=== PATIENT | male | born 1940 | race Caucasian/White ===

== ENCOUNTER 2016-11-24 10:48 | Inpatient (IN) | payer BC, OTHER ==
[~2016-11-24] VITALS: Ht 172.7 cm; Wt 67.0 kg
[2016-11-24] MEDS ORDERED: SODIUM CHLORIDE 0.9% 1000ML 500 ML IV ONE (11:36)
[2016-11-24] MEDS ORDERED: PIPERACILLIN/TAZOBACTAM 4.5 GM/100ML D5W IV STA (11:36)
--- NOTE | 2016-11-24 11:45 | EMERGENCY ROOM VISIT NOTE ---
History Report prepared by Luis Enrique: Sarita Thrasher Under the Supervision of: Dr. Jose Luis Serrano M.D. First contact with patient: 11:30 Chief Complaint: SKIN PROBLEM Stated Complaint: CELLULITIS OF LEFT LEG/FOOT History of Present Illness The patient is a 76 year old male who presents to the Emergency Room with complaints of a persistent right leg cellulitis that began one week ago. He currently rates his discomfort as a 10/10 in severity. The patient's family reports that the patient has a history of Buerger's Disease. She states that the patient was a heavy smoker until two years ago, when he had a left above the knee amputation. The patient's family notes that one month ago the patient scraped his right wagner. She states that nine days ago, the patient accidentally clipped his right great toe when clipping his toenails. The patient's family states that the patient developed a cellulitis one week ago and was started on Bactrim by his PCP. She notes that the patient's infection has continued to worsen. The patient reports being on Coumadin, but states that for the past week he has been off the Coumadin due to his infection. The patient reports a history of lung cancer. Source of History: patient Onset: one week ago Position: leg (right) Symptom Intensity: 10/10 Quality: other (cellulitis) Timing: other (persistent) Review of Systems See HPI for pertinent positives & negatives. A total of 10 systems reviewed and were otherwise negative. Past Medical & Surgical Medical Problems: (1) Buerger's disease (2) Hypertension Surgical Problems: (1) History of left above knee amputation (2) Status post right knee replacement Family History Hypertension Kidney disease Kidney stones Social History Smoking Status: Former Smoker Smokeless Tobacco Use: No Alcohol Use: none Marital Status: single Housing Status: lives with significant other Occupation Status: retired Current/Historical Medications Scheduled Furosemide (Lasix), 20 MG PO DAILY Levothyroxine Sodium (Synthroid), 100 MCG PO DAILY Losartan Potassium (Cozaar), 50 MG PO DAILY Multivitamin (Multivitamin), 1 TAB PO DAILY Warfarin Sod (Jantoven), 3 MG PO DAILY Scheduled PRN Hydrocodone/Acetaminophen 10MG/325MG ([place] 10MG/325MG), 1 TAB PO Q6H PRN for Pain Temazepam (Restoril), 30 MG PO HS PRN for . Miscellaneous Medications Testosterone Enanthate (Testosterone Enanthate) Allergies Coded Allergies: Iodinated Diagnostic Agents (Unverified Allergy, Unknown, ., 11/24/16) Physical Exam Vital Signs Date Time Temp Pulse Resp B/P (MAP) Pulse Ox O2 Delivery O2 Flow Rate FiO2 11/24/16 13:03 104 18 137/70 92 Room Air 11/24/16 12:03 127 11/24/16 11:51 94 Room Air 11/24/16 11:03 36.9 119 20 118/77 99 Room Air Physical Exam GENERAL: Patient is in no acute distress. HEENT: No acute trauma, normocephalic atraumatic, mucous membranes moist, no nasal congestion, no scleral icterus. NECK: No stridor, no adenopathy, no meningismus, trachea is midline. LUNGS: Clear to auscultation bilaterally, no wheeze, no rhonchi, breath sounds equal. HEART: Tachycardic, with an irregular rhythm, no murmurs. ABDOMEN: Soft, nontender, bowel sounds positive, no hernias, no peritonitis. EXTREMITIES: Left above the knee amputation. Right lower extremity has erythema from the ankle to the proximal tib/fib. There is an abrasion to the anterior mid tib/fib. Distal foot is cool and white, there is some contusion to the great toe and second toe. NEUROLOGIC: Oriented x 3, no acute motor or sensory deficits, no focal weakness. SKIN: No jaundice, no diaphoresis. Medical Decision & Procedures ER Provider Diagnostic Interpretation: Radiology results as stated below per my review and radiologist interpretation: CHEST ONE VIEW PORTABLE CLINICAL HISTORY: history of cancer COMPARISON STUDY: No previous studies for comparison. FINDINGS: Multinodular. In the chest. Largest nodule in the right midlung is 2.9 cm. Lower right lung has a nodule measuring 1.8 cm. There is a left suprahilar nodule measuring 8 mm. There is a peripheral nodule possibly a hyperdense nodule peripheral aspect left lung base measuring 1.8 cm. IMPRESSION: Multinodular appearing chest raising the possibility of metastatic disease. Correlation with old films is recommended. The above report was generated using voice recognition software. It may contain grammatical, syntax or spelling errors. Electronically signed by: Timothy Martinez M.D. 11/24/2016 12:00 PM Dictated Date/Time: 11/24/2016 11:59 AM RIGHT LOWER EXTREMITY ARTERIAL DOPPLER ULTRASOUND CLINICAL HISTORY: Poor circulation. White foot. COMPARISON STUDY: No previous studies for comparison. TECHNIQUE: Ankle to brachial indices could not be obtained due to lower extremity wounds. Grayscale and color and duplex Doppler sonography of the arterial system of the right lower external was performed. FINDINGS: There is extensive atherosclerotic plaque throughout the right lower extremity. An elevated peak systolic velocity of 287 cm/s was noted within the right common femoral artery. The proximal right femoral artery was patent. The mid to distal right superficial femoral artery was occluded and contained thrombus/plaque. Distal to this occlusion, there is significantly dampened, monophasic flow within the right popliteal, posterior tibial and anterior tibial arteries. No flow is identified within the right dorsalis pedis or peroneal vessels. IMPRESSION: 1. 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 Partial distal reconstitution although flow distal to this occlusion is markedly dampened and monophasic. No flow within the right dorsalis pedis and peroneal arteries which suggests occlusion. Dampened, monophasic flow within the popliteal, anterior tibial and posterior tibial arteries. 2. Extensive atherosclerotic plaque within the right lower extremity. 3. Findings suggestive of a hemodynamically significant stenosis of the right common femoral artery. Electronically signed by: Rob Nix M.D. 11/24/2016 1:14 PM Dictated Date/Time: 11/24/2016 1:03 PM Laboratory Results 11/24/16 11:20 Red Blood Count 6.95, Mean Corpuscular Volume 68.8, Mean Corpuscular Hemoglobin 22.3, Mean Corpuscular Hemoglobin Concent 32.4, Mean Platelet Volume 9.3, Neutrophils (%) (Auto) 79.5, Lymphocytes (%) (Auto) 8.7, Monocytes (%) (Auto) 6.8, Eosinophils (%) (Auto) 3.2, Basophils (%) (Auto) 0.7, Neutrophils # (Auto) 18.84, Lymphocytes # (Auto) 2.06, Monocytes # (Auto) 1.60, Eosinophils # (Auto) 0.75, Basophils # (Auto) 0.17 11/24/16 11:20 Test 11/24/16 11:20 11/24/16 12:10 White Blood Count 23.68 K/uL (4.8-10.8) Red Blood Count 6.95 M/uL (4.7-6.1) Hemoglobin 15.5 g/dL (14.0-18.0) Hematocrit 47.8 % (42-52) Mean Corpuscular Volume 68.8 fL (80-100) Mean Corpuscular Hemoglobin 22.3 pg (25-34) Mean Corpuscular Hemoglobin Concent 32.4 g/dl (32-36) Platelet Count 720 K/uL (130-400) Mean Platelet Volume 9.3 fL (7.4-10.4) Neutrophils (%) (Auto) 79.5 % Lymphocytes (%) (Auto) 8.7 % Monocytes (%) (Auto) 6.8 % Eosinophils (%) (Auto) 3.2 % Basophils (%) (Auto) 0.7 % Neutrophils # (Auto) 18.84 K/uL (1.4-6.5) Lymphocytes # (Auto) 2.06 K/uL (1.2-3.4) Monocytes # (Auto) 1.60 K/uL (0.11-0.59) Eosinophils # (Auto) 0.75 K/uL (0-0.5) Basophils # (Auto) 0.17 K/uL (0-0.2) RDW Standard Deviation 47.2 fL (36.4-46.3) RDW Coefficient of Variation 19.4 % (11.5-14.5) Immature Granulocyte % (Auto) 1.1 % Immature Granulocyte # (Auto) 0.26 K/uL (0.00-0.02) Microcytosis PRESENT Echinocytes 1+ Prothrombin Time 12.2 SECONDS (9.0-12.0) Prothromb Time International Ratio 1.1 (0.9-1.1) Activated Partial Thromboplast Time 32.9 SECONDS (21.0-31.0) Partial Thromboplastin Ratio 1.3 Anion Gap 8.0 mmol/L (3-11) Est Creatinine Clear Calc Drug Dose 24.6 ml/min Estimated GFR () 28.1 Estimated GFR (Non- 24.2 BUN/Creatinine Ratio 9.8 (10-20) Calcium Level 9.5 mg/dl (8.5-10.1) Total Bilirubin 0.6 mg/dl (0.2-1) Aspartate Amino Transf (AST/SGOT) 36 U/L (15-37) Alanine Aminotransferase (ALT/SGPT) 21 U/L (12-78) Alkaline Phosphatase 95 U/L (45-117) Total Protein 7.4 gm/dl (6.4-8.2) Albumin 3.6 gm/dl (3.4-5.0) Globulin 3.8 gm/dl (2.5-4.0) Albumin/Globulin Ratio 0.9 (0.9-2) Bedside Lactic Acid Venous 2.48 mmol/L (0.90-1.70) Laboratory results reviewed by me. Patient had lab-work on 11/03/16 His white count was 16, platelet count 805, and his creatinine was 1.67 Medications Administered Medications (Trade) Dose Ordered Sig/Greg Route Start Time Stop Time Status Last Admin Dose Admin Sodium Chloride 500 ml @ 999 mls/hr Q31M ONCE IV 11/24/16 11:36 11/24/16 12:06 DC 11/24/16 12:23 999 MLS/HR Piperacillin Sod/ Tazobactam Sod (Zosyn Iv) 4.5 gm ONE STAT IV 11/24/16 11:36 11/24/16 11:41 DC 11/24/16 12:24 4.5 GM Morphine Sulfate (MoRPHine SULFATE INJ) 4 mg Q15M PRN IV 11/24/16 11:45 12/08/16 11:44 11/24/16 12:24 4 MG Sodium Chloride 1,000 ml @ 200 mls/hr Q5H STAT IV 11/24/16 12:16 11/24/16 17:15 11/24/16 13:44 200 MLS/HR Vancomycin HCl (Vancomycin 1gm/ 270ml Nss) 1 gm NOW STAT IV 11/24/16 12:32 11/24/16 12:33 DC 11/24/16 13:03 1 GM ECG Indication: other (history of an irregular heart rate) Rate (beats per minute): 107 Rhythm: sinus tachycardia Findings: PAC, no acute ischemic change, no ectopy ED Course 1132: The patient was evaluated in room C3. A complete history and physical exam was performed. 1136: Ordered Zosyn IV 4.5 gm IV, Sodium Chloride 500 ml @ 999 mls/hr IV. 1145: Ordered Morphine Sulfate 4 mg IV. 1216: Ordered Sodium Chloride 1000 ml @ 200 mls/hr IV. 1232: Ordered Vancomycin HCl 1 gm IV. 1325: I discussed the patients case with Dr. Gallegos, Vascular Surgery. He said that there is no need for immediate vascular intervention. He states that he will see the patient in consult. 1333: I reevaluated the patient and he is resting comfortably. I discussed the exam findings with the patient and his family. I discussed the treatment plan with them and they verbalized complete understanding and agreement. The patient will be evaluated for further treatment. 1341: I discussed the patients case with Janene Lee. She is going to evaluate the patient for further treatment. Medical Decision The patient is a 76 year old male who presents to the ED with complaints of cellulitis to his right leg. Differential diagnoses considered include Ischemia , cellulitis, failed outpatient treatment, gangrene, a fib or aflutter. There is a significant leukocytosis at 23,000, this is consistent with infection. Platelet count is high. No concerning anemia. Renal panel testing shows acute renal failure/dehydration. Potassium mildly elevated. No hepatitis or coagulopathy. Lactic acid level is slightly elevated consistent with sepsis and/or dehydration. Blood cultures are pending. Chest film shows evidence for metastatic lung disease, there was no pneumonia or CHF. Right leg arterial ultrasound shows significant issues with his arterial flow. Occlusions were noted in different areas. The patient received IV saline, IV morphine. He was given IV Zosyn and IV vancomycin. The patient has a right leg cellulitis and very poor arterial flow to the right leg. He is failing outpatient treatment with oral Bactrim. Reviewing his laboratory tests from a few weeks ago, his white count is higher today, his creatinine is higher today. I spoke with Dr. Gallegos of vascular surgery. I spoke with the on-call hospitalist. I did consult case management. I discussed my findings with the patient and his significant other. Admission/observation is warranted. Medication Reconcilliation Current Medication List: was personally reviewed by me Blood Pressure Screening Patient's blood pressure: Elevated blood pressure Blood pressure disposition: Elevated BP felt to be situational, Did not require urgent referral Consults Time Called: 1321 Consulting Physician: Dr. Gallegos, Vascular Surgery Returned Call: [phone] I discussed the patients case with Dr. Gallegos, Vascular Surgery. He said that there is no need for immediate vascular intervention. He states that he will see the patient in consult. Additional Consults: Time Called: 1331 Consulted Physician: Janene Lee Returned Call: [phone] Additional Comments: I discussed the patients case with Janene Lee. She is going to evaluate the patient for further treatment. Impression Primary Impression: Sepsis Additional Impressions: Cellulitis of right leg Failure of outpatient treatment Right leg ischemia Scribe Attestation The scribe's documentation has been prepared under my direction and personally reviewed by me in its entirety. I confirm that the note above accurately reflects all work, treatment, procedures, and medical decision making performed by me. Departure Information Dispostion Being Evaluated By Hospitalist Problem Qualifiers
--- NOTE | 2016-11-24 12:01 | DIAGNOSTIC IMAGING REPORT ---
CHEST ONE VIEW PORTABLE CLINICAL HISTORY: history of cancer COMPARISON STUDY: No previous studies for comparison. FINDINGS: Multinodular. In the chest. Largest nodule in the right midlung is 2.9 cm. Lower right lung has a nodule measuring 1.8 cm. There is a left suprahilar nodule measuring 8 mm. There is a peripheral nodule possibly a hyperdense nodule peripheral aspect left lung base measuring 1.8 cm. IMPRESSION: Multinodular appearing chest raising the possibility of metastatic disease. Correlation with old films is recommended. The above report was generated using voice recognition software. It may contain grammatical, syntax or spelling errors. Electronically signed by: Timothy Martinez M.D. 11/24/2016 12:00 PM Dictated Date/Time: 11/24/2016 11:59 AM
[2016-11-24 12:04] LABS: BASO % 0.7 %; BASO ABS # 0.17 K/uL (0-0.2); EOS % 3.2 %; HEMATOCRIT 47.8 % (42-52); IG% 1.1 %; LYMPH % 8.7 %; LYMPH ABS # 2.06 K/uL (1.2-3.4); MEAN CELL VOLUME 68.8 fL (80-100); MEAN CORPUSCULAR HEMOGLOBIN 22.3 pg (25-34); MEAN CORPUSCULAR HGB CONC 32.4 g/dl (32-36); MEAN PLATELET VOLUME 9.3 fL (7.4-10.4); MONO % 6.8 %; NEUT % 79.5 %; PLATELET COUNT 720 K/uL (130-400); RED BLOOD COUNT 6.95 M/uL (4.7-6.1); WHITE BLOOD COUNT 23.68 K/uL (4.8-10.8)
[2016-11-24 12:09] LABS: INR 1.1 (0.9-1.1); PARTIAL THROMBOPLASTIN RATIO 1.3; PROTHROMBIN TIME (PATIENT) 12.2 SECONDS (9.0-12.0)
[2016-11-24 12:12] LABS: BUN/CREATININE RATIO 9.8 (10-20); CALCIUM 9.5 mg/dl (8.5-10.1); CREATININE 2.5 mg/dl (0.60-1.40); POTASSIUM 5.4 mmol/L (3.5-5.1)
[2016-11-24 12:15] LABS: ALB/GLOB RATIO 0.9 (0.9-2)
[2016-11-24] MEDS ORDERED: SODIUM CHLORIDE 0.9% 1000ML 1,000 ML IV STA (12:16)
[2016-11-24] MEDS: MoRPHine SULFATE 4 MG/ML 1 ML CARP\\VIAL IV PRN ×2 (12:24→15:18)
[2016-11-24] MEDS ORDERED: VANCOMYCIN 1GM/270ML NSS IV STA (12:32)
[2016-11-24 12:40] LABS: COMPLETE YES; ECHINOCYTES 1+; MICROCYTOSIS PRESENT
[2016-11-24] MEDS ORDERED: HYDR-4079 PO (12:53)
[2016-11-24] MEDS ORDERED: WARF3TAB6 PO (12:53)
[2016-11-24] MEDS ORDERED: TEST1INJ3 (12:53)
[2016-11-24] MEDS ORDERED: LEVO100T PO (12:53)
[2016-11-24] MEDS ORDERED: TEMA30CA4 PO (12:53)
[2016-11-24] MEDS ORDERED: FURO-85 PO (12:53)
[2016-11-24] MEDS ORDERED: MULT-506 PO (12:53)
[2016-11-24] MEDS ORDERED: LOSA50TA6 PO (12:53)
--- NOTE | 2016-11-24 13:15 | DIAGNOSTIC IMAGING REPORT ---
RIGHT LOWER EXTREMITY ARTERIAL DOPPLER ULTRASOUND CLINICAL HISTORY: Poor circulation. White foot. COMPARISON STUDY: No previous studies for comparison. TECHNIQUE: Ankle to brachial indices could not be obtained due to lower extremity wounds. Grayscale and color and duplex Doppler sonography of the arterial system of the right lower external was performed. FINDINGS: There is extensive atherosclerotic plaque throughout the right lower extremity. An elevated peak systolic velocity of 287 cm/s was noted within the right common femoral artery. The proximal right femoral artery was patent. The mid to distal right superficial femoral artery was occluded and contained thrombus/plaque. Distal to this occlusion, there is significantly dampened, monophasic flow within the right popliteal, posterior tibial and anterior tibial arteries. No flow is identified within the right dorsalis pedis or peroneal vessels. IMPRESSION: 1. 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 Partial distal reconstitution although flow distal to this occlusion is markedly dampened and monophasic. No flow within the right dorsalis pedis and peroneal arteries which suggests occlusion. Dampened, monophasic flow within the popliteal, anterior tibial and posterior tibial arteries. 2. Extensive atherosclerotic plaque within the right lower extremity. 3. Findings suggestive of a hemodynamically significant stenosis of the right common femoral artery. Electronically signed by: Rob Nix M.D. 11/24/2016 1:14 PM Dictated Date/Time: 11/24/2016 1:03 PM
[2016-11-24] MEDS ORDERED: VANCOMYCIN CONSULT ACTIVE PRN (15:10)
[2016-11-24] MEDS ORDERED: PIPERACILL/TAZOBAC CONSULT ACTIVE PRN (15:11)
[2016-11-24] MEDS ORDERED: ONDANSETRON INJ 2 MG/ML 2 ML VIAL IV PRN (15:15)
[2016-11-24] MEDS: SODIUM CHLORIDE 0.9% 1000ML 1,000 ML IV SCH ×2 (15:18→23:56)
[2016-11-24] MEDS ORDERED: TEMAZEPAM 15 MG CAP PO PRN (15:30)
[2016-11-24] MEDS ORDERED: WARFARIN SOD 3 MG TAB PO SCH (16:00)
--- NOTE | 2016-11-24 16:24 | Pharmacy Progress Note ---
Pharmacy Abx Initial Consult Date of Service Nov 24, 2016. Pharmacy Dosing Scope Date of Consult: 11/23/16 Consultation requested by: Divine Narayanan / Dr. Houser Pharmacy is consulted to initiate Vancomycin/Zosyn IV dosing therapy, order appropriate labs and adjust drug dose/frequency. Subjective The patient is a 76 year old male admitted on with right leg/foot cellulitis. Objective Height (Feet): 5 Height (Inches): 8.00 Weight (Kilograms): 68.200 Vital Signs (Past 12Hrs) Vital Signs Past 12 Hours Date Time Temp Pulse Resp B/P (MAP) Pulse Ox O2 Delivery O2 Flow Rate FiO2 11/24/16 15:00 88 18 109/64 94 Room Air 11/24/16 13:03 104 18 137/70 92 Room Air 11/24/16 12:03 127 11/24/16 11:51 94 Room Air 11/24/16 11:03 36.9 119 20 118/77 99 Room Air Lab Results (24Hrs) Laboratory Tests (24 Hours) Test 11/24/16 11:20 11/24/16 14:50 White Blood Count 23.68 K/uL (4.8-10.8) H Red Blood Count 6.95 M/uL (4.7-6.1) H Hemoglobin 15.5 g/dL (14.0-18.0) Hematocrit 47.8 % (42-52) Mean Corpuscular Volume 68.8 fL (80-100) L Mean Corpuscular Hemoglobin 22.3 pg (25-34) L Mean Corpuscular Hemoglobin Concent 32.4 g/dl (32-36) Platelet Count 720 K/uL (130-400) H Mean Platelet Volume 9.3 fL (7.4-10.4) Neutrophils (%) (Auto) 79.5 % Lymphocytes (%) (Auto) 8.7 % Monocytes (%) (Auto) 6.8 % Eosinophils (%) (Auto) 3.2 % Basophils (%) (Auto) 0.7 % Neutrophils # (Auto) 18.84 K/uL (1.4-6.5) H Lymphocytes # (Auto) 2.06 K/uL (1.2-3.4) Monocytes # (Auto) 1.60 K/uL (0.11-0.59) H Eosinophils # (Auto) 0.75 K/uL (0-0.5) H Basophils # (Auto) 0.17 K/uL (0-0.2) Lactic Acid Level 1.0 mmol/L (0.4-2.0) Micro Results Date/Time Source Procedure Growth Status 11/24/16 12:00 Blood Blood Culture Pending Received 11/24/16 11:20 Blood Blood Culture Pending Received Assessment & Plan Assessment 76 year old male being admitted with right leg/foot cellulitis that started one week SYSTEM ADMIN. Patient with elevated serum creatinine at 2.5 mg/dl upon admission (reported as 1.67 mg/dl on 11/03/16) thus will proceed cautiously. Will initiate Vancomycin starting with a widened dosing interval. Will initiate the first dose approximately 8 hours after the Emergency Dept dose since the patient did not receive and adequate loading dose. If renal function improves, will shorten the dosing interval appropriately. Plan IV Vancomycin and IV Zosyn for treatment of cellulitis (skin and soft tissue infection) Vancomycin IV * Loading dose: 1000 mg (14.7 mg/kg) * Maintenance dose: 1000 mg IV (14.7 mg/kg) every 36 hours * Goal trough level for cellulitis: 13 to 17 mcg/mL * Random level ordered for 11/27/16 prior to the 2200 hours dose * A less than traditional dose and/or extended dosing interval has/have been selected due to likelihood of drug accumulation in patient with h/o CKD. Piperacillin/tazobactam * 4.5 g bolus administered over 30 minutes, then 3.375 g IV extended infusion every 8 hours for CrCl greater than 20 mL/min Pharmacy will continue to follow and will adjust dose/frequency as necessary. Thank you.
[2016-11-24 17:11] VITALS: BP 115/71; PULSE 108; TEMP 37.1; O2SAT 94; Ht 172.7 cm; Wt 67.0 kg
[2016-11-24] MEDS: PIPERACILL/TAZOBAC IV 3.375 GM in DEXTROSE 5% 100ML 100 ML IV SCH (18:05)
[2016-11-24 19:20] VITALS: BP 119/74; PULSE 96; TEMP 37.2; O2SAT 96
--- NOTE | 2016-11-24 20:41 | History and Physical ---
History & Physical Date & Time of Service: Nov 24, 2016 at 15:19 Chief Complaint: Cellulitis Of Left Leg/Foot Primary Care Physician: Adams Amezcua M.D. History of Present Illness Source: patient, spouse, other (outpatient labs on paper chart) This is a 76 year old male with PMH of peripheral vascular disease s/p LLE vascular procedures and left AKA, lung cancer s/p radiation in 2013, HTN, paroxysmal atrial fibrillation, myelodysplastic disease, thrombophilia, hypothyroidism, chronic pain syndrome, and other problems listed below who presents to the ED for RLE redness. Pt follows with Dr. Adams Amezcua for primary care. Patient reports 1 month ago he scraped his right anterior wagner on a restroom stall while using his scooter. There was initially pain and erythema at the site which improved. Then 1 week ago patient cut his skin while clipping his right great toenail and subsequently developed erythema on the right lower leg. Patient was started on Bactrim 3 days ago by his PCP without improvement. Pt denies purulent drainage but states the toe was bleeding profusely when he clipped it. He therefore stopped his Coumadin 1 week ago and the bleeding subsided. Pt was taking his PRN for past few days due to RLE swelling. Pt denies fever, chills, night sweats, weight loss, chest pain, SOB, cough, abdominal pain, N/V/D, dysuria, frequency, stroke like symptoms. His notes his WBC and platelets were elevated in October 2016. Pt is scheduled for a chest CT tomorrow 11/25/16 to follow up his lung cancer. No recent oncology follow up. Last CT chest was in 2014. Past Medical/Surgical History Medical Problems: (1) Chronic anticoagulation Status: Chronic (2) Chronic pain syndrome Status: Chronic (3) History of valley fever Status: Chronic (4) Hypertension Status: Chronic (5) Hypothyroidism Status: Chronic (6) Lung cancer Permanent Comment: s/p radiation July 2013 in [place] Status: Chronic (7) Myelodysplastic disease Status: Chronic (8) Paroxysmal atrial fibrillation Status: Chronic (9) Peripheral vascular disease Status: Chronic (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 Status: Chronic (11) Thrombophilia Status: Chronic Surgical Problems: (1) History of left above knee amputation Status: Resolved (2) History of procedure for peripheral vascular disease Permanent Comment: LLE Status: Chronic (3) History of total right knee replacement Status: Chronic (4) Status post above knee amputation of left lower extremity Status: Chronic (5) Status post right knee replacement Status: Resolved Family History Buerger's disease FATHER Hypertension Kidney disease SISTER Kidney stones Social History Smoking Status: Former Smoker (quit 2013, prior 2-3 ppd x 50 years) Smokeless Tobacco Use: No Alcohol Use: none recently, prior heavy alcohol use before 2013 Drug Use: none Marital Status: Housing status: lives with significant other 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 Miscellaneous Medications Testosterone Enanthate (Testosterone Enanthate) Review of Systems Ten systems reviewed and negative except as noted in HPI. Physical Exam Vital Signs Date Time Temp Pulse Resp B/P (MAP) Pulse Ox O2 Delivery O2 Flow Rate FiO2 11/24/16 15:00 88 18 109/64 94 Room Air 11/24/16 13:03 104 18 137/70 92 Room Air 11/24/16 12:03 127 11/24/16 11:51 94 Room Air 11/24/16 11:03 36.9 119 20 118/77 99 Room Air General Appearance: WD/WN, no apparent distress Head: normocephalic, atraumatic Eyes: normal inspection, PERRL, EOMI, sclerae normal ENT: hearing grossly normal, pharynx normal Neck: supple, trachea midline Respiratory/Chest: lungs clear, normal breath sounds, no respiratory distress, no accessory muscle use Cardiovascular: no murmur, + tachycardia (90's, regular) Abdomen/GI: normal bowel sounds, non tender, soft Extremities/Musculoskelatal: no calf tenderness, no pedal edema, + pertinent finding (s/p LLE AKA. unable to palpate RLE DP pulse. hair loss of right toes. ) Neurologic/Psych: alert, normal mood/affect, oriented x 3, + pertinent finding (sensation to light touch intact distal RLE) Skin: warm/dry, + pertinent finding (right wagner with multiple superficial abrasions with scabbing. no active drainage. erythema right anterior, medial, and posterior calf. right great toe with healing abrasion. no active bleeding or drainage. ecchymosis of right great toe and right 2nd toe. pale distal RLE.) Diagnostics Laboratory Results Results Past 24 Hours Test 11/24/16 11:20 11/24/16 12:10 11/24/16 14:50 Range/Units White Blood Count 23.68 4.8-10.8 K/uL Red Blood Count 6.95 4.7-6.1 M/uL Hemoglobin 15.5 14.0-18.0 g/dL Hematocrit 47.8 42-52 % Mean Corpuscular Volume 68.8 80-100 fL Mean Corpuscular Hemoglobin 22.3 25-34 pg Mean Corpuscular Hemoglobin Concent 32.4 32-36 g/dl Platelet Count 720 130-400 K/uL Mean Platelet Volume 9.3 7.4-10.4 fL Neutrophils (%) (Auto) 79.5 % Lymphocytes (%) (Auto) 8.7 % Monocytes (%) (Auto) 6.8 % Eosinophils (%) (Auto) 3.2 % Basophils (%) (Auto) 0.7 % Neutrophils # (Auto) 18.84 1.4-6.5 K/uL Lymphocytes # (Auto) 2.06 1.2-3.4 K/uL Monocytes # (Auto) 1.60 0.11-0.59 K/uL Eosinophils # (Auto) 0.75 0-0.5 K/uL Basophils # (Auto) 0.17 0-0.2 K/uL RDW Standard Deviation 47.2 36.4-46.3 fL RDW Coefficient of Variation 19.4 11.5-14.5 % Immature Granulocyte % (Auto) 1.1 % Immature Granulocyte # (Auto) 0.26 0.00-0.02 K/uL Microcytosis PRESENT Echinocytes 1+ Prothrombin Time 12.2 9.0-12.0 SECONDS Prothromb Time International Ratio 1.1 0.9-1.1 Activated Partial Thromboplast Time 32.9 21.0-31.0 SECONDS Partial Thromboplastin Ratio 1.3 Sodium Level 134 136-145 mmol/L Potassium Level 5.4 3.5-5.1 mmol/L Chloride Level 99 98-107 mmol/L Carbon Dioxide Level 27 21-32 mmol/L Anion Gap 8.0 3-11 mmol/L Blood Urea Nitrogen 24 7-18 mg/dl Creatinine 2.50 0.60-1.40 mg/dl Est Creatinine Clear Calc Drug Dose 24.6 ml/min Estimated GFR () 28.1 Estimated GFR (Non- 24.2 BUN/Creatinine Ratio 9.8 10-20 Random Glucose 89 70-99 mg/dl Calcium Level 9.5 8.5-10.1 mg/dl Total Bilirubin 0.6 0.2-1 mg/dl Aspartate Amino Transf (AST/SGOT) 36 15-37 U/L Alanine Aminotransferase (ALT/SGPT) 21 12-78 U/L Alkaline Phosphatase 95 45-117 U/L Total Protein 7.4 6.4-8.2 gm/dl Albumin 3.6 3.4-5.0 gm/dl Globulin 3.8 2.5-4.0 gm/dl Albumin/Globulin Ratio 0.9 0.9-2 Bedside Lactic Acid Venous 2.48 0.90-1.70 mmol/L Microbiology Results 11/24/16 Blood Culture, Received Pending 11/24/16 Blood Culture, Received Pending Diagnostic Radiology RIGHT LOWER EXTREMITY ARTERIAL DOPPLER ULTRASOUND CLINICAL HISTORY: Poor circulation. White foot. COMPARISON STUDY: No previous studies for comparison. TECHNIQUE: Ankle to brachial indices could not be obtained due to lower extremity wounds. Grayscale and color and duplex Doppler sonography of the arterial system of the right lower external was performed. FINDINGS: There is extensive atherosclerotic plaque throughout the right lower extremity. An elevated peak systolic velocity of 287 cm/s was noted within the right common femoral artery. The proximal right femoral artery was patent. The mid to distal right superficial femoral artery was occluded and contained thrombus/plaque. Distal to this occlusion, there is significantly dampened, monophasic flow within the right popliteal, posterior tibial and anterior tibial arteries. No flow is identified within the right dorsalis pedis or peroneal vessels. IMPRESSION: 1. 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 Partial distal reconstitution although flow distal to this occlusion is markedly dampened and monophasic. No flow within the right dorsalis pedis and peroneal arteries which suggests occlusion. Dampened, monophasic flow within the popliteal, anterior tibial and posterior tibial arteries. 2. Extensive atherosclerotic plaque within the right lower extremity. 3. Findings suggestive of a hemodynamically significant stenosis of the right common femoral artery. CHEST ONE VIEW PORTABLE CLINICAL HISTORY: history of cancer COMPARISON STUDY: No previous studies for comparison. FINDINGS: Multinodular. In the chest. Largest nodule in the right midlung is 2.9 cm. Lower right lung has a nodule measuring 1.8 cm. There is a left suprahilar nodule measuring 8 mm. There is a peripheral nodule possibly a hyperdense nodule peripheral aspect left lung base measuring 1.8 cm. IMPRESSION: Multinodular appearing chest raising the possibility of metastatic disease. Correlation with old films is recommended. EKG sinus tachycardia with PAC's, 107 bpm, no peaked T waves Impression Assessment and Plan SEPSIS Due to RLE cellulitis, failed outpatient treatment with 3 days of Bactrim Meets SIRS criteria with leukocytosis (WBC 23K, was 16.9 on 11/03/16), + tachycardia, afebrile, no hypotension, POC lactate 2.44 -> repeat 1.0 Treated with IVF's, vancomycin and Zosyn in ER Blood cultures pending Continue empiric broad spectrum antibiotics Consult wound care nurse KARINA Creatinine is 2.5 (was 1.67 on 11/03/16) Hold Losartan and Lasix Continue IVF's Monitor renal function HYPERKALEMIA K is 5.4 No concerning EKG changes Monitor in telemetry Diuretics held Recheck PRP in AM PERIPHERAL VASCULAR DISEASE RLE doppler showed age indeterminate occlusion of superficial femoral artery, extensive atherosclerotic plaque within RLE, hemodynamically significant stenosis of the right common femoral artery Consult vascular surgery- Dr. Gallegos contacted by ER, no plan for urgent procedure, will see patient in consult HISTORY OF LUNG CANCER S/p radiation July 2013 CXR shows multiple lung nodules, ?metastatic Consult pulmonology PAROXYSMAL ATRIAL FIBRILLATION Currently in sinus tachycardia Has been off Coumadin x 1 week for toe bleeding- resolved Continue to hold Coumadin in case vascular procedure is needed during hospitalization ELEVATED PLATELETS Likely due to acute illness Elevated to 805 in October -> 720 today Monitor HYPOTHYROIDISM Continue levothyroxine CHRONIC PAIN SYNDROME Continue home Ellamore DVT PROPHYLAXIS Coumadin is on hold Heparin SQ CODE STATUS DNR per my discussion with the patient DISPOSITION Admit to telemetry Follows with Dr. Adams Amezcua for primary care Patient seen in collaboration with Dr. Houser. Please see her addendum. ADDENDUM: I have seen and examined the patient and agree with the assessment and plan as stated above. No records available for review. Requested records from typical PCP in [place]. Uncertain plan for the lung cancer at this point. Pt states that the last time he has seen someone about this was two years ago. Agree with pulm consult to assist while awaiting records. Pt is already improved clinically from a sepsis standpoint. States that leg was injured in a bathroom stall 3 weeks ago while in [facility]-large wound on anterior wagner present. Pulse is faint but palpable on exam. Holding coumadin until Dr. Gallegos plan. Mik, DO Level of Care Telemetry Resuscitation Status DO NOT RESUSCITATE VTE Prophylaxis VTE Risk Assessment Done? Y/N: Yes Risk Level: Moderate
[2016-11-24] MEDS: HYDROCODONE/ACETAMI 10/325 TAB PO PRN (21:40)
[2016-11-24] MEDS: HEPARIN SOD 5000 UNIT/0.5 ML CARP SQ SCH (21:44)
[2016-11-24] MEDS ORDERED: VANCOMYCIN INJ 1,000 MG in SODIUM CHLORIDE 0.9% 250ML 250 ML IV SCH (22:00)
[2016-11-24 23:10] VITALS: BP 131/61; PULSE 94; TEMP 37.2; O2SAT 94
[2016-11-25] MEDS: ACETAMINOPHEN 325 MG TAB PO PRN ×2 (01:32→14:39)
[2016-11-25] MEDS: PIPERACILL/TAZOBAC IV 3.375 GM in DEXTROSE 5% 100ML 100 ML IV SCH ×3 (02:30→17:47)
[2016-11-25 02:55] VITALS: BP 118/75; PULSE 116; TEMP 37.1; O2SAT 94
[2016-11-25] MEDS: LEVOTHYROXINE 100 MCG TAB PO SCH (05:54)
[2016-11-25] MEDS: HEPARIN SOD 5000 UNIT/0.5 ML CARP SQ SCH ×3 (05:56→22:00)
[2016-11-25 07:38] LABS: BASO % 0.8 %; BASO ABS # 0.16 K/uL (0-0.2); EOS % 1.7 %; HEMATOCRIT 47.4 % (42-52); IG% 0.8 %; LYMPH % 4.9 %; LYMPH ABS # 1.04 K/uL (1.2-3.4); MEAN CELL VOLUME 68.6 fL (80-100); MEAN CORPUSCULAR HEMOGLOBIN 21.7 pg (25-34); MEAN CORPUSCULAR HGB CONC 31.6 g/dl (32-36); MONO % 6.4 %; NEUT % 85.4 %; PLATELET COUNT 686 K/uL (130-400); RED BLOOD COUNT 6.91 M/uL (4.7-6.1); WHITE BLOOD COUNT 21.18 K/uL (4.8-10.8)
[2016-11-25 07:41] VITALS: BP 128/81; PULSE 133; TEMP 37.1; O2SAT 97
[2016-11-25 07:51] LABS: INR 1.1 (0.9-1.1); PROTHROMBIN TIME (PATIENT) 12.2 SECONDS (9.0-12.0)
[2016-11-25] MEDS: MULTIVITAMIN TAB PO SCH (08:03)
[2016-11-25 08:13] LABS: BUN/CREATININE RATIO 9.7 (10-20); CALCIUM 8.7 mg/dl (8.5-10.1); CREATININE 1.9 mg/dl (0.60-1.40); MAGNESIUM 1.9 mg/dl (1.8-2.4); POTASSIUM 4.5 mmol/L (3.5-5.1)
--- NOTE | 2016-11-25 09:00 | Surgery Consultation ---
Consultation Date of Service Nov 25, 2016. (Apoorva Henriquez, OLGA) Chief Complaint RLE cellulitis/pain (Apoorva Henriquez, OLGA) History of Present Illness The patient is a 76 year old male with hx of HTN, hypothyroidism, PAD, a fib, thrombophilia, myelodysplastic disorder, and LLE AKA, admitted with RLE open wounds and cellulitis, seen in consultation today d/t R SFA occlusion noted on US. Pt states he must have struck his R wagner on something about 3 wks ago and wounds have not been healing. Also states he cut his own toenails and accidentally clipped the tip of his toe around that time as well. States has had discoloration of toes since that time, which have also not been healing. Has not sought medical attention prior to this. Has had significant discomfort in R foot, but states sometimes was improved with elevation, sometimes improved with putting his leg down. Uses RLE for transfers, does not ambulate distances. States his LLE AKA was performed d/t inability to revascularize his LLE at the time. Denies LARSEN, fever, chills, chest pain, SOB, abd pain, N/V, other complaints. Denies any prior knowledge of kidney function problems or having seen a ship mate in past. Ultrasound demonstrates R SFA severe stenosis vs occlusion. (Apoorva Henriquez, OLGA) Vitals Vital Signs Past 12 Hours Date Time Temp Pulse Resp B/P (MAP) Pulse Ox O2 Delivery O2 Flow Rate FiO2 11/25/16 07:41 37.1 133 16 128/81 (97) 97 Room Air 11/25/16 04:00 Room Air 11/25/16 02:55 37.1 116 16 118/75 (89) 94 Room Air 11/25/16 00:00 Room Air 11/24/16 23:10 37.2 94 18 131/61 (84) 94 Room Air (Apoorva Henriquez, OLGA) Allergies Coded Allergies: Iodinated Diagnostic Agents (Unverified Allergy, Unknown, ., 11/24/16) Home Medications Scheduled Levothyroxine Sodium (Synthroid), 100 MCG PO DAILY Losartan Potassium (Cozaar), 50 MG PO DAILY Multivitamin (Multivitamin), 1 TAB PO DAILY Warfarin Sod (Jantoven), 3 MG PO DAILY Scheduled PRN Furosemide (Lasix), 20 MG PO DAILY PRN for swelling Hydrocodone/Acetaminophen 10MG/325MG ([place]'Brien 10MG/325MG), 1 TAB PO Q6H PRN for Pain Temazepam (Restoril), 30 MG PO HS PRN for . Miscellaneous Medications Testosterone Enanthate (Testosterone Enanthate) Problem List Medical Problems: (1) Chronic anticoagulation (2) Chronic pain syndrome (3) History of valley fever (4) Hypertension (5) Hypothyroidism (6) Lung cancer (7) Myelodysplastic disease (8) Paroxysmal atrial fibrillation (9) Peripheral vascular disease (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 (11) Thrombophilia Surgical Problems: (1) History of left above knee amputation (2) History of procedure for peripheral vascular disease (3) History of total right knee replacement (4) Status post above knee amputation of left lower extremity (5) Status post right knee replacement (Apoorva Henriquez PA-C) Surgical / Medical History Hx Cardiac Surgery: No Hx Abdominal Surgery: No Hx Cancer Surgery: No Hx Thoracic Surgery: No Hx Orthopedic: Yes (Lt AKA, Rt total Knee) Hx Urinary Tract Surgery: No HX Other Surgery: No Past Medical/Surgical History: Blood Dyscrasias, Hypertension, Thyroid Disease (Apoorva Henriquez, MUNDOC) Family History Buerger's disease FATHER Hypertension Kidney disease SISTER Kidney stones (Apoorva Henriquez, MUNDOC) Buerger's disease FATHER Hypertension Kidney disease SISTER Kidney stones (Jacobo Gallegos M.D.) Social History Smoking Status: Former Smoker (quit 2013, prior 2-3 ppd x 50 years) Hx Tobacco Use In Past Year?: No Hx Alcohol Use - Type & Amnt: No Hx Substance Use -Type & Amnt: No (Apoorva Henriquez, MUNDOC) Review of Systems Constitutional: No chills, No fever, No malaise Skin: + change in color Eyes: No visual changes ENMT: No sore throat Respiratory: No cough, No PRADO, No short of breath Cardiovascular: No chest pain, No palpitations, No syncope, No edema, No intermittent claudication Gastrointestinal: No abdominal pain, No nausea, No vomiting Neurologic: + numbness, No dizziness, No lethargy, No tingling (Apoorva Henriquez, PARamonC) Physical Exam Constitutional: General Apperance: well-nourished, well-developed Level of Distress: NAD, chronically ill Psychiatric: Mental Status: active & alert, normal mood, normal affect Orientation: oriented except where noted, to time, to place, to person Memory: recent memory normal, remote memory normal Head: normocephalic, atraumatic Eyes: EOM: EOMI ENMT: normal ENT inspection, hearing grossly normal Neck: supple, trachea midline Lungs: Respiratory effort: no dyspnea Auscultation: no wheezing, no rales/crackles Cardiovascular: Apical Impulse: not displaced Heart Auscultation: no rubs, no gallops, pertinent finding (irregular) Peripheral Pulses: Pulses: full and equal, in all extremities except if noted Bruits: none appreciated Carotid Pulse: normal on the left, normal on the right Brachial Pulses: normal on the left, normal on the right Radial Pulse: normal on the left, normal on the right Femoral Pulse: normal on the right, absent on the left Popliteal Pulse: doppler (RLE) Posterior Tibialis Pulse: absent on the right Dorsalis Pedis Pulse: absent on the right, pertinent finding (RLE absent with doppler) Abdomen: Bowel Sounds: normal Inspection & Palpation: soft, non-distended, no tenderness, guarding & rebound Musculoskeletal: normal tone Extremities: Upper Right: no cyanosis, no edema, no varicosities Upper Left: no cyanosis, no edema, no varicosities Lower Right: ulcers, mottling, gangrene, pertinent finding (R great toe tip with dry gangrene noted, all toes with pallor, cold, waxy in appearance, with 2- 3 areas of purple ischemia. Also with shallow dry ulcerations to wagner with black eschars. Warm erythema noted from foot to just prox wagner area. ) Lower Left: pertinent finding (LLE AKA) Neurologic: Cranial Nerves: grossly intact (Apoorva Henriquez, PARamonC) Assessment and Plan ASSESSMENT and PLAN: RLE Severe PAD with rest pain and ischemia Cellulitis RLE wounds Pt noted to have severe renal disease as well, which may preclude use of contrast dye. Pt states has done fine in past having contrast as long as he is pretreated for his allergy with steroids and benadryl. Pt's RLE noted to have severe ischemia and may require surgical intervention for limb salvage. To determine what surgical options are available for pt, will need at least diagnostic angio using minimal amt of contrast dye. Will discuss further with Dr Gallegos, who is currently in OR. (Apoorva Henriquez, PA-C) Patient was seen, examined, and chart reviewed. Agree with exam and treatment plan of the Vascular PA. Patient with an infected left upper arm fistula. There is a stent present in the distal portion of the fistula. Would continue antibiotics at present and place a temporary femoral catheter for dialysis. If the arm improves and cult neg will place permcath on Thursday. If the arm does not improve then will explore the fistula and remove the infected portion. I have discussed the risks options and benefits of the procedure with the patient. The patient understands the risks options and benefits and agrees to the procedure. (Jacobo Gallegos M.D.)
[2016-11-25 09:08] LABS: COMPLETE YES; ECHINOCYTES 1+; MICROCYTOSIS PRESENT
[2016-11-25] MEDS: HYDROCODONE/ACETAMI 10/325 TAB PO PRN ×2 (09:55→20:16)
[2016-11-25] MEDS: LORAZEPAM 0.5 MG TAB PO PRN ×2 (10:47→16:02)
[2016-11-25 11:14] VITALS: BP 157/92; PULSE 122; TEMP 37.1; O2SAT 99
--- NOTE | 2016-11-25 11:17 | Pulmonary Consultation ---
History General Date of Service: Nov 25, 2016. 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 The patient states that he has not had any repeat CT scans since his treatment/ therapy. He does also have history of PAD, L AKA, paroxysmal Afib, hypothyroidism, thrombophilia, and myelodysplastic disease. The patient states that he lived in [place] for approximately 18 years, and his lung CA was diagnosed and treated in [place]. He cannot remember the medical facility or doctor at the current time, but his PCP in [place] was Dr. Evens Cesar, and his currently PCP is Dr. Adams Amezcua at [facility]. I did speak with Dr. Amezcua's office and am obtaining records on this patient. The patient was admitted to [facility] with concerns for right lower extremity cellulitis. He also has some mild open wounds or the area as well with some bloody drainage. He is having some edema of the area as well. He denies sweats, chills, or fevers. He is not experiencing any SOB, cough, or wheezing. Upon admission, the patient's WBC count was elevated to 23.68 with neutrophil predominance. POC Lactic acid was elevated to 2.48. Creatinine also elevated at 2.50 upon presentation, already down to 1.90 today. Potassium was elevated at 5.4, but is also down today to 4.5. Patient was placed empirically on IV Vancomycin and Zosyn. Blood cultures are pending. RLE Arterial Doppler showed occlusion of the mid to distal right superficial femoral artery which contains thrombus/plaque of unknown age, partial reconstitution of flow, no flow within the right dorsalis pedis and peroneal arteries suggesting occlusion, extensive atherosclerotic plaques, and stenosis of the right common femoral as well. CXR 11/24: Multinodular appearing chest raising possibility of metastatic disease. Image viewed. Noted that vascular surgery was also consulted- recommending diagnostic angio of the RLE with minimal dye and pretreatment for allergy. Patient has been afebrile since admission. He has however been tachycardic. SaO2 has been between 92-99 % on room air. Patient seems slightly confused today. He is convinced that he is leaving the hospital this afternoon. He is unsure of which hospital he is in. He states that it is Thursday, and that he and his have been traveling around a lot and need to get back on the road. The patient's chart also mentions history of Valley Fever, but it is uncertain when this patient had Valley Fever or how he was treated at the time. Historian: patient Review of Systems Constitutional: denies: chills, fever Eyes: denies: redness, visual changes ENT: denies: sore throat Cardiovascular: denies: chest pain, chest tightness Respiratory: denies: cough, shortness of breath, wheezing Gastrointestinal: denies: abdominal pain, vomiting Musculoskeletal: reports: other (L AKA, right leg with edema and erythema/ wounds) Integumentary: reports: redness (right lower extremity) Neurologic: reports: other (slight confusion, but alert, cooperative, and oriented to person) All Other Symptoms All Other Systems: Reviewed and Negative Past Medical History Past Medical History: Medical Problems: (1) Chronic anticoagulation (2) Chronic pain syndrome (3) History of valley fever (4) Hypertension (5) Hypothyroidism (6) Lung cancer (7) Myelodysplastic disease (8) Paroxysmal atrial fibrillation (9) Peripheral vascular disease (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 (11) Thrombophilia Surgical Problems: (1) History of left above knee amputation (2) History of procedure for peripheral vascular disease (3) History of total right knee replacement (4) Status post above knee amputation of left lower extremity (5) Status post right knee replacement Family History Buerger's disease FATHER Hypertension Kidney disease SISTER Kidney stones Social History Hx Tobacco Use In Past Year?: No Smoking Status: Former Smoker (quit 2013, prior 2-3 ppd x 50 years) Marital status: Housing status: lives with significant other 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) Allergies Coded Allergies: Iodinated Diagnostic Agents (Unverified Allergy, Unknown, ., 11/24/16) Current Medications Reported Home Medications Medications Dose Route/Sig Max Daily Dose Days Date Category Dose Instructions Multivitamin (Multivitamins) Tab 1 Tab PO DAILY 11/24/16 Reported Cozaar (Losartan Potassium) 50 Mg Tab 50 Mg PO DAILY 11/24/16 Reported Jantoven (Warfarin Sodium) 3 Mg Tab 3 Mg PO DAILY 11/24/16 Reported Restoril (Temazepam) 30 Mg Cap 30 Mg PO HS PRN 11/24/16 Reported Lasix (Furosemide) 20 Mg Tab 20 Mg PO DAILY PRN 11/24/16 Reported [place]on 10MG/325MG (Acetaminophen/Hydrocodone Bitart) Tab 1 Tab PO Q6H PRN 11/24/16 Reported PRN PAIN Testosterone Enanthate 200 Mg/Ml Inj 11/24/16 Reported 1/2 CC every 2 weeks Synthroid (Levothyroxine Sodium) 100 Mcg Tab 100 Mcg PO DAILY 11/24/16 Reported Physical Physical Exam Vital Signs: Date Time Temp Pulse Resp B/P (MAP) Pulse Ox O2 Delivery O2 Flow Rate FiO2 11/25/16 09:33 Room Air 11/25/16 08:00 Room Air 11/25/16 07:41 37.1 133 16 128/81 (97) 97 Room Air 11/25/16 04:00 Room Air 11/25/16 02:55 37.1 116 16 118/75 (89) 94 Room Air 11/25/16 00:00 Room Air 11/24/16 23:10 37.2 94 18 131/61 (84) 94 Room Air 11/24/16 20:00 Room Air 11/24/16 19:20 37.2 96 20 119/74 (89) 96 Room Air 11/24/16 17:47 Room Air 11/24/16 17:11 37.1 108 20 115/71 94 Room Air 11/24/16 16:16 106 11/24/16 16:00 104 16 124/74 92 Room Air 11/24/16 15:00 88 18 109/64 94 Room Air 11/24/16 13:03 104 18 137/70 92 Room Air 11/24/16 12:03 127 11/24/16 11:51 94 Room Air 11/24/16 11:03 36.9 119 20 118/77 99 Room Air General Appearance: WD/WN, NO APPARENT DISTRESS Head: NORMOCEPHALIC, ATRAUMATIC Eyes: PERRLA, NO DISCHARGE, EOMI ENT: other (hearing intact) Neck: NORMAL RANGE OF MOTION, TRACHEA MIDLINE Respiratory: BREATH SOUNDS NORMAL, CLEAR TO AUSCULTATION, NO RESPIRATORY DISTRESS, NO TENDERNESS Cardiovasular: NO MURMUR, other (tachycardia) Abdomen: NON TENDER, NORMAL BOWEL SOUNDS Back: NORMAL INSPECTION Lower Extremities: other (left AKA, RLE with erythema, open wound with dried blood, and edema) Neuro: ALERT, disoriented (slightly- does not know where he is or day or week) Psychiatric: NORMAL AFFECT Diagnostics Labs Results Past 24 Hours Test 11/24/16 11:20 11/24/16 12:10 11/24/16 14:50 11/25/16 07:16 Range/Units White Blood Count 23.68 21.18 4.8-10.8 K/uL Red Blood Count 6.95 6.91 4.7-6.1 M/uL Hemoglobin 15.5 15.0 14.0-18.0 g/dL Hematocrit 47.8 47.4 42-52 % Mean Corpuscular Volume 68.8 68.6 80-100 fL Mean Corpuscular Hemoglobin 22.3 21.7 25-34 pg Mean Corpuscular Hemoglobin Concent 32.4 31.6 32-36 g/dl Platelet Count 720 686 130-400 K/uL Mean Platelet Volume 9.3 9.0 7.4-10.4 fL Neutrophils (%) (Auto) 79.5 85.4 % Lymphocytes (%) (Auto) 8.7 4.9 % Monocytes (%) (Auto) 6.8 6.4 % Eosinophils (%) (Auto) 3.2 1.7 % Basophils (%) (Auto) 0.7 0.8 % Neutrophils # (Auto) 18.84 18.10 1.4-6.5 K/uL Lymphocytes # (Auto) 2.06 1.04 1.2-3.4 K/uL Monocytes # (Auto) 1.60 1.35 0.11-0.59 K/uL Eosinophils # (Auto) 0.75 0.36 0-0.5 K/uL Basophils # (Auto) 0.17 0.16 0-0.2 K/uL RDW Standard Deviation 47.2 46.9 36.4-46.3 fL RDW Coefficient of Variation 19.4 19.3 11.5-14.5 % Immature Granulocyte % (Auto) 1.1 0.8 % Immature Granulocyte # (Auto) 0.26 0.17 0.00-0.02 K/uL Microcytosis PRESENT PRESENT Echinocytes 1+ 1+ Prothrombin Time 12.2 12.2 9.0-12.0 SECONDS Prothromb Time International Ratio 1.1 1.1 0.9-1.1 Activated Partial Thromboplast Time 32.9 21.0-31.0 SECONDS Partial Thromboplastin Ratio 1.3 Sodium Level 134 137 136-145 mmol/L Potassium Level 5.4 4.5 3.5-5.1 mmol/L Chloride Level 99 106 98-107 mmol/L Carbon Dioxide Level 27 25 21-32 mmol/L Anion Gap 8.0 6.0 3-11 mmol/L Blood Urea Nitrogen 24 18 7-18 mg/dl Creatinine 2.50 1.90 0.60-1.40 mg/dl Est Creatinine Clear Calc Drug Dose 24.6 32.5 ml/min Estimated GFR () 28.1 39.1 Estimated GFR (Non- 24.2 33.7 BUN/Creatinine Ratio 9.8 9.7 10-20 Random Glucose 89 78 70-99 mg/dl Calcium Level 9.5 8.7 8.5-10.1 mg/dl Total Bilirubin 0.6 0.2-1 mg/dl Aspartate Amino Transf (AST/SGOT) 36 15-37 U/L Alanine Aminotransferase (ALT/SGPT) 21 12-78 U/L Alkaline Phosphatase 95 45-117 U/L Total Protein 7.4 6.4-8.2 gm/dl Albumin 3.6 3.4-5.0 gm/dl Globulin 3.8 2.5-4.0 gm/dl Albumin/Globulin Ratio 0.9 0.9-2 Bedside Lactic Acid Venous 2.48 0.90-1.70 mmol/L Lactic Acid Level 1.0 0.4-2.0 mmol/L Magnesium Level 1.9 1.8-2.4 mg/dl Microbiology Results 11/24/16 Blood Culture, Received Pending 11/24/16 Blood Culture, Received Pending Diagnostic Radiology CHEST ONE VIEW PORTABLE CLINICAL HISTORY: history of cancer COMPARISON STUDY: No previous studies for comparison. FINDINGS: Multinodular. In the chest. Largest nodule in the right midlung is 2.9 cm. Lower right lung has a nodule measuring 1.8 cm. There is a left suprahilar nodule measuring 8 mm. There is a peripheral nodule possibly a hyperdense nodule peripheral aspect left lung base measuring 1.8 cm. IMPRESSION: Multinodular appearing chest raising the possibility of metastatic disease. Correlation with old films is recommended. EKG EKG viewed. Sinus tachycardia with PAC's noted Impression Assessment and Plan Sepsis likely 2ndary to RLE Cellulitis with open wounds KARINA Hyperkalemia PAD, hx Hightower's Dz Hx Small Cell Lung CA s/p SBRT 2013 Paroxysmal AFib Hypothyroidism Patient is slightly disoriented today, but does answer many questions appropriately. Working on obtaining past medical records from [facility] currently. Patient does have history of small cell lung CA with SBRT in 2013. New CXR shows nodular disease raising concern for possible recurrent disease. Will order Non-Contrast Chest CT today to further evaluate nodules. Patient also with elevated WBC count, RLE cellulitis, and sepsis. Currently on IV Vancomycin and Zosyn. Will check procalcitonin as well. Patient also carries unknown history of Valley Fever, therefore will add Coccidio AB, too. Continue empiric abx therapy pending further workup. Supplement O2 via nasal cannula if SaO2 drops below 88%. PAD- vascular surgery following Paroxysmal AFib- Coumadin being held due to possibility of vascular procedure Pulm will follow. Patient seen and examined and I agree with current assessment. Patient does appear to be responding to current antibiotic therapy. At this time as the patient has a history of Valley fever/cocci as well as a cavitary lesion in the right lower lobe we should be cautious about secondary fungal infections. Would not initiate fluconazole but will send off for fungatal titers at this time.
--- NOTE | 2016-11-25 12:11 | Pharmacy Progress Note ---
Pharmacy Abx Dose Short Note Date of Service Nov 25, 2016. Assessment & Plan Assessment 76 year old male receiving IV Vancomycin and IV Zosyn for treatment of possible sepsis and right lower extremity cellulitis Day # 2 of 10 of antimicrobial therapy. Renal function improved significantly since admission, serum creatinine down to 1.9 mg/dL today from 2.5 mg/dL upon admission yesterday. Will empirically shorten extended Vancomycin dosing interval from every 36 hours to every 24 hours. Will continued to monitor renal function and will continue to adjust as necessary. Plan Vancomycin * Change to 1250 mg (17.7 mg/kg) IV every 24 hours * Goal trough level for sepsis/cellulitis: 13 to 20 mcg/mL * Trough level ordered for: 11/27/16 prior to the 2200 hours dose Pharmacy will continue to follow and will adjust dose/frequency as necessary. Thank you.
--- NOTE | 2016-11-25 12:26 | Nephrology Consultation ---
Nephrology Consultation Date & Providers Date of Consultation: Nov 25, 2016. Primary Care Provider: Adams Amezcua M.D. Referring Provider: Reason for Consultation Evaluation management for acute kidney injury and risk assessment for contrast induced nephropathy. History of Present Illness Mario is a 76-year-old male with them past medical history significant for hypertension, history of peripheral vascular disease, prior history of lung cancer status post radiation therapy admitted to the hospital with lower extremity cellulitis and ischemic ulcer. Nephrology consult was requested as patient was found to have acute kidney injury to asses for risk of contrast induced nephropathy. Electronic medical records including labs and imaging are reviewed in detail during patient's visit. Mario presented to the hospital with right lower extremity cellulitis and superficial ulcer starting 2 weeks ago. He completed a course of Bactrim as an outpatient however cellulitis seems to have gotten worse. He was admitted with sepsis due to cellulitis and started on broad-spectrum antibiotic. Lower extremity Doppler showed occlusion of right superficial femoral artery. He was evaluated by vascular surgery and plan for possible angiogram for further assessment and need for intervention. He has history of peripheral vascular disease and previously had left lower extremity above knee amputation. Had prior history of small cell lung carcinoma in 2013, treated with radiation therapy. According to the EMR record he did not follow with oncologist for last 2 years. CXR on admission was concerning for multiple pulmonary nodules suggestive of metastatic disease. Has history of hypertension, has been on losartan and Lasix at home. History of AFib, on anticoagulation. No history of diabetes or coronary artery disease. He is not aware of history of having chronic kidney disease. On admission his creatinine was 2.5, he was hyperkalemic. He was given 2-3 liters of IV fluid since admission and this morning his creatinine improved to 1.9, hyperkalemia resolved. Record review showed he had creatinine of 1.7 on 11/03/16. He denied any recent history of NSAID use however he reports heavy NSAID use up until 2 weeks ago. Recently completed a course of Bactrim prior to the admission. Denies any voiding symptoms, hematuria or history of nephrolithiasis. He has long history of smoking for many years, quit smoking several years ago. Could not provide any significant family history of chronic kidney disease or end- stage renal disease. Currently his overall feeling well, denies any shortness of breath, chest pain, voiding symptoms, fever or chills. Allergies Coded Allergies: Iodinated Diagnostic Agents (Unverified Allergy, Unknown, ., 11/24/16) Inpatient Medications Current Inpatient Medications Medications (Trade) Dose Ordered Sig/Greg Route Start Time Stop Time Status Last Admin Dose Admin Heparin Sodium (Porcine) (Heparin Sq 5000 Unit/0.5ml) 5,000 unit Q8 SQ 11/24/16 22:00 12/24/16 21:59 11/25/16 05:56 5,000 UNIT Acetaminophen (Tylenol Tab) 650 mg Q4H PRN PO 11/24/16 15:15 12/24/16 15:14 11/25/16 01:32 650 MG Ondansetron HCl (Zofran Inj) 4 mg Q6H PRN IV 11/24/16 15:15 12/24/16 15:14 Vancomycin HCl (Consult) 1 ea UD PRN N/A 11/24/16 15:10 12/24/16 15:09 Piperacillin Sod/ Tazobactam Sod (Consult) 1 ea UD PRN N/A 11/24/16 15:11 12/24/16 15:10 Acetaminophen/ Hydrocodone Bitart ([place] 10/325 Tab) 1 tab Q6H PRN PO 11/24/16 15:30 12/08/16 15:29 11/25/16 09:55 1 TAB Levothyroxine Sodium (Synthroid Tab) 100 mcg DAILYBB PO 11/25/16 06:00 12/25/16 06:59 11/25/16 05:54 100 MCG Multivitamins (Multivitamin Tab) 1 tab DAILY PO 11/25/16 09:00 12/25/16 08:59 11/25/16 08:03 1 TAB Temazepam (Restoril Cap) 30 mg HS PRN PO 11/24/16 15:30 12/24/16 15:29 Piperacillin Sod/ Tazobactam Sod 3.375 gm/Dextrose 115 ml @ 28.75 mls/ hr Q8H IV 11/24/16 18:00 12/04/16 09:59 11/25/16 09:52 28.75 MLS/HR Vancomycin HCl 1000 mg/Sodium Chloride 270 ml @ 125 mls/hr Q36H IV 11/24/16 22:00 12/04/16 12:59 11/24/16 21:53 125 MLS/HR Prednisone (PredniSONE TAB) 50 mg 18 ONCE PO 11/25/16 18:00 11/25/16 18:01 UNV Diphenhydramine HCl (Benadryl Cap) 50 mg ONE ONCE PO 11/26/16 11:00 11/26/16 11:01 UNV Cimetidine (Tagamet Tab) 300 mg ONE ONCE PO 11/26/16 11:00 11/26/16 11:01 UNV Acetylcysteine (Acetylcysteine Cap) 600 mg Q12H PO 11/25/16 18:00 11/27/16 06:01 UNV Sodium Chloride 1,000 ml @ 0 mls/hr Q0M IV 11/26/16 08:00 12/26/16 07:59 UNV Sodium Bicarbonate 100 meq/Sterile Water 1,100 ml @ 80 mls/hr [id number] IV 11/26/16 09:00 12/26/16 08:59 UNV Cefazolin Sodium 1000 mg/Dextrose 55 ml @ 100 mls/hr PRE-SPECIALS ONCE IV 11/26/16 12:00 11/26/16 12:32 UNV Family History Buerger's disease FATHER Hypertension Kidney disease SISTER Kidney stones Social History Smoking Status: Former Smoker (quit 2013, prior 2-3 ppd x 50 years) Smokeless Tobacco Use: No Alcohol Use: none recently, prior heavy alcohol use before 2013 Drug Use: none Marital Status: Housing Status: lives with significant other 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 Pertinent positives are noted above. All other systems are negative. Physical Exam Date Time Temp Pulse Resp B/P (MAP) Pulse Ox O2 Delivery O2 Flow Rate FiO2 11/25/16 09:33 Room Air 11/25/16 08:00 Room Air 11/25/16 07:41 37.1 133 16 128/81 (97) 97 Room Air 11/25/16 04:00 Room Air 11/25/16 02:55 37.1 116 16 118/75 (89) 94 Room Air 11/25/16 00:00 Room Air 11/24/16 23:10 37.2 94 18 131/61 (84) 94 Room Air 11/24/16 20:00 Room Air 11/24/16 19:20 37.2 96 20 119/74 (89) 96 Room Air 11/24/16 17:47 Room Air 11/24/16 17:11 37.1 108 20 115/71 94 Room Air 11/24/16 16:16 106 11/24/16 16:00 104 16 124/74 92 Room Air 11/24/16 15:00 88 18 109/64 94 Room Air 11/24/16 13:03 104 18 137/70 92 Room Air 11/24/16 12:03 127 11/24/16 11:51 94 Room Air 11/24/16 11:03 36.9 119 20 118/77 99 Room Air GENERAL: elderly male, AAA x 3, not in any distress. HEENT: Atraumatic, normocephalic. NECK: Supple, no JVD, no carotid bruit appreciated. ENT: No sinus tenderness MOUTH and THROAT: Moist oral mucosa, no oral ulcer or pharyngeal erythema RESPIRATORY: Normal breathing efforts, clear to auscultation bilaterally CARDIOVASCULAR: S1, S2 normal, rhythm irregular. ABDOMEN: Soft, nontender, positive bowel sound. MUSCULOSKELETAL: No CVA tenderness. Normal range of motion. SKIN: No skin rash EXTREMITY: Left above-knee amputation, right lower extremity with swelling, erythema and warmth NEURO: No gross focal neurological deficit, speech fluent. PSYCHIATRY: Normal mood and judgment Laboratory Results Last 24 Hours Test 11/24/16 11:20 11/24/16 12:10 11/24/16 14:50 11/25/16 07:16 White Blood Count 23.68 K/uL 21.18 K/uL Red Blood Count 6.95 M/uL 6.91 M/uL Hemoglobin 15.5 g/dL 15.0 g/dL Hematocrit 47.8 % 47.4 % Mean Corpuscular Volume 68.8 fL 68.6 fL Mean Corpuscular Hemoglobin 22.3 pg 21.7 pg Mean Corpuscular Hemoglobin Concent 32.4 g/dl 31.6 g/dl Platelet Count 720 K/uL 686 K/uL Mean Platelet Volume 9.3 fL 9.0 fL Neutrophils (%) (Auto) 79.5 % 85.4 % Lymphocytes (%) (Auto) 8.7 % 4.9 % Monocytes (%) (Auto) 6.8 % 6.4 % Eosinophils (%) (Auto) 3.2 % 1.7 % Basophils (%) (Auto) 0.7 % 0.8 % Neutrophils # (Auto) 18.84 K/uL 18.10 K/uL Lymphocytes # (Auto) 2.06 K/uL 1.04 K/uL Monocytes # (Auto) 1.60 K/uL 1.35 K/uL Eosinophils # (Auto) 0.75 K/uL 0.36 K/uL Basophils # (Auto) 0.17 K/uL 0.16 K/uL RDW Standard Deviation 47.2 fL 46.9 fL RDW Coefficient of Variation 19.4 % 19.3 % Immature Granulocyte % (Auto) 1.1 % 0.8 % Immature Granulocyte # (Auto) 0.26 K/uL 0.17 K/uL Microcytosis PRESENT PRESENT Echinocytes 1+ 1+ Prothrombin Time 12.2 SECONDS 12.2 SECONDS Prothromb Time International Ratio 1.1 1.1 Activated Partial Thromboplast Time 32.9 SECONDS Partial Thromboplastin Ratio 1.3 Sodium Level 134 mmol/L 137 mmol/L Potassium Level 5.4 mmol/L 4.5 mmol/L Chloride Level 99 mmol/L 106 mmol/L Carbon Dioxide Level 27 mmol/L 25 mmol/L Anion Gap 8.0 mmol/L 6.0 mmol/L Blood Urea Nitrogen 24 mg/dl 18 mg/dl Creatinine 2.50 mg/dl 1.90 mg/dl Est Creatinine Clear Calc Drug Dose 24.6 ml/min 32.5 ml/min Estimated GFR () 28.1 39.1 Estimated GFR (Non- 24.2 33.7 BUN/Creatinine Ratio 9.8 9.7 Random Glucose 89 mg/dl 78 mg/dl Calcium Level 9.5 mg/dl 8.7 mg/dl Total Bilirubin 0.6 mg/dl Aspartate Amino Transf (AST/SGOT) 36 U/L Alanine Aminotransferase (ALT/SGPT) 21 U/L Alkaline Phosphatase 95 U/L Total Protein 7.4 gm/dl Albumin 3.6 gm/dl Globulin 3.8 gm/dl Albumin/Globulin Ratio 0.9 Bedside Lactic Acid Venous 2.48 mmol/L Lactic Acid Level 1.0 mmol/L Magnesium Level 1.9 mg/dl Impression 76-year-old gentlemen with history of peripheral vascular disease, hypertension , status post left AK AID, history of lung cancer small cell lung cancer treated with radiation therapy before, concern for new finding of metastatic disease, admitted to the hospital with right lower extremity cellulitis and ischemia. Found to have acute kidney injury on admission with no prior history of chronic kidney disease. Acute kidney injury could be hemodynamically mediated as renal function improved this morning with IV hydration and improvement in blood pressure. Record review shows that creatinine was 1.7 approximately 2-3 weeks ago. Although patient is not aware of any history of chronic kidney disease, with patient's history of significant peripheral vascular disease, hypertension and longstanding history of smoking, it is quite possible that patient have some underlying renal insufficiency secondary to chronic ischemic nephropathy with microvascular disease and creatinine of 1.7 from 2-3 weeks ago could be his baseline. He recently completed a course of antibiotic, concern for interstitial nephritis however seems unlikely as renal function started to improve although no urinalysis available yet. Recommendations --Considering patient's significant history of vasculopathy, acute kidney injury and possible underlying chronic kidney disease he is at risk for further worsening of renal function with IV contrast exposure. Explained in detail to the patient, patient verbalized understanding however would like to proceed with angiogram and intervention if needed --suggest NS @ 75 ml/h for 6 hours starting 3 hours prior to angiogram. As patient has been getting IV fluid since admission, will need to monitor his volume status carefully --avoid hypotension --agree with holding losartan and Lasix for now --monitor renal function with daily renal panel --avoid nephrotoxic medications Thank you for allowing me to participate in your patient's care. It was a pleasure to see Mario This chart was completed utilizing [employer] Speech and voice recognition software. Grammatical errors, random word insertions, pronoun errors and incomplete sentences are occasional consequences of this system. Any questions or concerns about the content, text or information contained within the body of this dictation should be addressed directly to the physician for clarification.
--- NOTE | 2016-11-25 12:38 | DIAGNOSTIC IMAGING REPORT ---
(CHEST) THORAX WITHOUT CLINICAL HISTORY: 76 years-old Male presenting with lung nodules, hx Small cell CA. TECHNIQUE: Multidetector CT imaging of the chest was performed without the use of intravenous contrast. IV contrast: None. A dose lowering technique was used consistent with the principles of ALARA (as low as reasonably achievable). COMPARISON: Chest x-ray performed the previous day. CT DOSE (mGy.cm): The estimated cumulative dose is 382.73 mGycm. 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 On soft tissue windows, normal thyroid and thoracic inlet. Bilateral gynecomastia. Multiple subcentimeter mediastinal lymph nodes. Evaluation of the luther is limited without intravenous contrast. Atherosclerosis of aortic arch. Enlargement of the main pulmonary artery suggesting pulmonary hypertension. Normal heart size. Aortic valve and coronary artery calcification. No pericardial or pleural effusion. Parenchymal calcifications within the spleen could suggest prior hemorrhage, trauma, or granulomatous disease. Cholelithiasis. On lung windows, large spiculated mass in the right upper lobe extending to the right hilum measuring 5.2 cm in maximal axial dimension. Associated architectural distortion of the right upper lobe with abutment of the major and minor fissures. Spiculated cavitary nodule in the right lower lobe with architectural distortion along the overlying pleura. This nodule measures 2.5 cm in maximal axial dimension. Spiculation/consolidation extends superiorly from this nodule to abut the major fissure. A segmental bronchus to the right upper lobe is occluded and an additional segmental and subsegmental bronchi demonstrate bronchiectasis. Partially calcified left lower lobe nodule measuring 1.5 cm, which abuts the pleura. Although mostly calcified, this may contain some soft tissue elements. No additional left lung nodule. Airways to the left lung patent. On bone windows, degenerative changes of the thoracic spine. Degenerative changes of the glenohumeral joints. IMPRESSION: 1. Spiculated 5.2 cm mass in the right upper lobe with extension to the right hilum highly concerning for primary bronchogenic carcinoma. Cavitary 2.5 cm nodule in the right lower lobe is concerning for regional metastatic disease. 2. Allowing for noncontrast technique, no evidence of lymphadenopathy. PET/CT may be helpful. 3. Partially calcified left lower lobe nodule may represent a calcified granuloma but is somewhat indeterminate. If a PET/CT were obtained, this would be expected to be photopenic in setting of a granuloma. 4. Enlarged main pulmonary artery suggests pulmonary hypertension. Electronically signed by: Steven Ziegler M.D. 11/25/2016 12:36 PM Dictated Date/Time: 11/25/2016 12:28 PM
[2016-11-25 13:59] LABS: URINE APPEARANCE CLEAR (CLEAR); URINE BILIRUBIN NEG (NEG); URINE COLOR YELLOW; URINE NITRITE NEG (NEG); URINE PH 5.5 (4.5-7.5); URINE SPECIFIC GRAVITY 1.015 (1.000-1.030); UROBILINOGEN NEG (NEG)
[2016-11-25 14:05] LABS: MANUAL MICROSCOPIC REQUIRED? NO; REVIEW REQ? NO
[2016-11-25] MEDS ORDERED: QUETIAPINE FUMARATE 25 MG TAB PO PRN (15:00)
[2016-11-25] MEDS ORDERED: HALOPERIDOL LACTATE 5 MG/ML 1 ML VIAL ONE ×2 (15:02→17:40)
[2016-11-25] MEDS ORDERED: HALOPERIDOL LACTATE 5 MG/ML 1 ML VIAL IM ONE ×2 (15:30→18:00)
--- NOTE | 2016-11-25 17:42 | Progress Note ---
Internal Med Progress Note Date of Service: Nov 25, 2016. Provider Documentation: SUBJECTIVE: remains very confused and agitated trying to get out of bed requiring 1: 1 observation per Nursing -pt had not slept for past 24 hrs given Haldol 5 mg IM , Seroquel 25 mg not much improvement in confusional state repeat Haldol dose ordered ordered for low boy bed cont 1:1 observation for patient safety OBJECTIVE: Vital Signs-as noted below Exam: General-confused , agitated Eyes-sclera non icteric Neck-no JVD Lungs-CTA Heart-regular S1/s2 Abdomen-soft, Extremities-s/p left BKA , black rt toe with multiple black area on rt foot Neuro-confused , agitated ,no focal deficit noted Lab data as noted below. ASSESSMENT & PLAN: SEPSIS Due to RLE cellulitis, failed outpatient treatment with 3 days of Bactrim Meets SIRS criteria with leukocytosis (WBC 23K, was 16.9 on 11/03/16), + tachycardia, afebrile, no hypotension, POC lactate 2.44 -> repeat 1.0 Blood cultures ordered Continue empiric broad spectrum antibiotics-vancomycin and Zosyn wound care nurse consulted DELIRIUM /CONFUSION : metabolic encephalopathy due to above cont to monitor closely -and correct underlying condition fall precaution PRN Haldol ordered for agitation will D/C Ativan as found to be not effective ; pt was getting more agitated KARINA on CKD stage 3 : Creatinine is 2.5 -> 1.9 (was 1.67 on 11/03/16) Hold Losartan and Lasix cont IVF nephrology consulted -appreciate input HYPERKALEMIA due to above ARB on hold K level improved follow daily PRP PERIPHERAL VASCULAR DISEASE RLE doppler showed age indeterminate occlusion of superficial femoral artery, extensive atherosclerotic plaque within RLE, hemodynamically significant stenosis of the right common femoral artery Consult vascular surgery- Dr. Gallegos appreciate consult pt with need contrast angiogram to assess the level of vascular occlusion and possible intervention pt is willing for contrast study -knowing it may make his kidney function worse appreciate nephrology eval started on IV fluids per recommendation HISTORY OF LUNG CANCER S/p radiation July 2013 CXR shows multiple lung nodules, ?metastatic appreciate Consult from pulmonology PAROXYSMAL ATRIAL FIBRILLATION Currently in sinus tachycardia-possible due to sepsis /dehydration ordered for IV Lopressor cont PRN dose for HR> 100 monitor in tele Has been off Coumadin x 1 week for toe bleeding- resolved Continue to hold Coumadin for possible vascular procedure is needed during hospitalization ELEVATED PLATELETS Likely due to acute illness/sepsis Elevated to 805 in October -> 720 -> 680 Monitor HYPOTHYROIDISM Continue levothyroxine CHRONIC PAIN SYNDROME Continue home [place] DVT PROPHYLAXIS Coumadin is on hold Heparin SQ CODE STATUS DNR DISPOSITION cont to monitor in Tele will need PT/OT eval prior to discharge will benefit with rehab Follows with Dr. Adams Amezcua for primary care Vital Signs: Date Time Temp Pulse Resp B/P (MAP) Pulse Ox O2 Delivery O2 Flow Rate FiO2 11/25/16 19:03 37.0 139 18 144/95 (111) 96 Room Air 11/25/16 16:00 Room Air 11/25/16 12:00 Room Air 11/25/16 11:14 37.1 122 16 157/92 (113) 99 Room Air 11/25/16 09:33 Room Air 11/25/16 08:00 Room Air 11/25/16 07:41 37.1 133 16 128/81 (97) 97 Room Air 11/25/16 04:00 Room Air 11/25/16 02:55 37.1 116 16 118/75 (89) 94 Room Air 11/25/16 00:00 Room Air 11/24/16 23:10 37.2 94 18 131/61 (84) 94 Room Air 11/24/16 20:00 Room Air Lab Results: Results Past 24 Hours Test 11/25/16 00:00 11/25/16 07:16 11/25/16 10:44 11/25/16 12:24 Range/Units Urine Color YELLOW Urine Appearance CLEAR CLEAR Urine pH 5.5 4.5-7.5 Urine Specific [place] 1.015 1.000-1.030 Urine Protein NEG NEG Urine Glucose (UA) NEG NEG Urine Ketones 1+ NEG Urine Occult Blood NEG NEG Urine Nitrite NEG NEG Urine Bilirubin NEG NEG Urine Urobilinogen NEG NEG Urine Leukocyte Esterase NEG NEG White Blood Count 21.18 4.8-10.8 K/uL Red Blood Count 6.91 4.7-6.1 M/uL Hemoglobin 15.0 14.0-18.0 g/dL Hematocrit 47.4 42-52 % Mean Corpuscular Volume 68.6 80-100 fL Mean Corpuscular Hemoglobin 21.7 25-34 pg Mean Corpuscular Hemoglobin Concent 31.6 32-36 g/dl Platelet Count 686 130-400 K/uL Mean Platelet Volume 9.0 7.4-10.4 fL Neutrophils (%) (Auto) 85.4 % Lymphocytes (%) (Auto) 4.9 % Monocytes (%) (Auto) 6.4 % Eosinophils (%) (Auto) 1.7 % Basophils (%) (Auto) 0.8 % Neutrophils # (Auto) 18.10 1.4-6.5 K/uL Lymphocytes # (Auto) 1.04 1.2-3.4 K/uL Monocytes # (Auto) 1.35 0.11-0.59 K/uL Eosinophils # (Auto) 0.36 0-0.5 K/uL Basophils # (Auto) 0.16 0-0.2 K/uL RDW Standard Deviation 46.9 36.4-46.3 fL RDW Coefficient of Variation 19.3 11.5-14.5 % Immature Granulocyte % (Auto) 0.8 % Immature Granulocyte # (Auto) 0.17 0.00-0.02 K/uL Microcytosis PRESENT Echinocytes 1+ Prothrombin Time 12.2 9.0-12.0 SECONDS Prothromb Time International Ratio 1.1 0.9-1.1 Sodium Level 137 136-145 mmol/L Potassium Level 4.5 3.5-5.1 mmol/L Chloride Level 106 98-107 mmol/L Carbon Dioxide Level 25 21-32 mmol/L Anion Gap 6.0 3-11 mmol/L Blood Urea Nitrogen 18 7-18 mg/dl Creatinine 1.90 0.60-1.40 mg/dl Est Creatinine Clear Calc Drug Dose 32.5 ml/min Estimated GFR () 39.1 Estimated GFR (Non- 33.7 BUN/Creatinine Ratio 9.7 10-20 Random Glucose 78 70-99 mg/dl Calcium Level 8.7 8.5-10.1 mg/dl Magnesium Level 1.9 1.8-2.4 mg/dl Procalcitonin 0.22 0-0.5 ng/ml
[2016-11-25] MEDS: SODIUM CHLORIDE 0.9% 1000ML 1,000 ML IV SCH (17:48)
[2016-11-25] MEDS: ACETYLCYSTEINE 600 MG CAP PO SCH (17:48)
[2016-11-25 19:03] VITALS: BP 144/95; PULSE 139; TEMP 37; O2SAT 96
[2016-11-25] MEDS ORDERED: TRAZODONE HCL 50 MG TAB PO PRN (19:15)
[2016-11-25] MEDS ORDERED: METOPROLOL TARTRATE 1 MG/ML VIAL IV STA (19:48)
[2016-11-25 20:00] VITALS: O2SAT 96
[2016-11-25] MEDS ORDERED: METOPROLOL TARTRATE 1 MG/ML VIAL IV PRN (20:00)
[2016-11-25] MEDS: HALOPERIDOL LACTATE 5 MG/ML 1 ML VIAL IM PRN (21:31)
[2016-11-25] MEDS: VANCOMYCIN INJ 1,250 MG in SODIUM CHLORIDE 0.9% 250ML 250 ML IV SCH (22:02)
[2016-11-25 23:23] VITALS: BP 135/73; PULSE 93; TEMP 36.7; O2SAT 95
[2016-11-26] VITALS (8 sets, daily range): BP systolic 118–176; BP diastolic 65–95; PULSE 76–128; TEMP 36.3–37.2; O2SAT 94–100
[2016-11-26] MEDS: PIPERACILL/TAZOBAC IV 3.375 GM in DEXTROSE 5% 100ML 100 ML IV SCH ×3 (02:45→18:48)
[2016-11-26] MEDS ORDERED: CEFAZOLIN 2000 MG/60 ML D5W 60 ML IV SCH (06:00)
[2016-11-26] MEDS: ACETYLCYSTEINE 600 MG CAP PO SCH ×2 (06:23→18:49)
[2016-11-26] MEDS: LEVOTHYROXINE 100 MCG TAB PO SCH ×2 (06:23→06:36)
[2016-11-26] MEDS: HEPARIN SOD 5000 UNIT/0.5 ML CARP SQ SCH ×3 (06:24→22:47)
[2016-11-26] MEDS: SODIUM CHLORIDE 0.9% 1000ML 1,000 ML IV SCH (06:34)
[2016-11-26 06:59] LABS: INR 1.2 (0.9-1.1)
[2016-11-26 07:02] LABS: BUN/CREATININE RATIO 11.2 (10-20); CALCIUM 8.3 mg/dl (8.5-10.1); CREATININE 1.6 mg/dl (0.60-1.40)
[2016-11-26] MEDS ORDERED: SODIUM CHLORIDE 0.9% 1000ML 1,000 ML IV SCH ×2 (08:00→10:00)
[2016-11-26] MEDS: MULTIVITAMIN TAB PO SCH (09:00)
[2016-11-26] MEDS ORDERED: SODIUM BICARBONATE 8.4% INJ 100 MEQ in STERILE WATER 1000 ML 1,000 ML IV SCH ×2 (09:00→11:00)
--- NOTE | 2016-11-26 10:04 | Nephrology Progress Note ---
Nephrology Progress Note Date of Service Nov 26, 2016. Chief Complaint F/U for acute kidney injury and risk assessment for contrast induced nephropathy. Mya Martin was seen and examined this morning. He was comfortable in bed however was still trying to get off the bed and seems confused, under 1:1 observation. Denies SOB, CP. Renal function improving, cr 1.6, electrolyte stable. Decent UO. Review of Systems A complete review of systems was performed. Pertinent positives are noted above. All other systems are negative. Vital Signs Last 8 Hrs Date Time Temp Pulse Resp B/P (MAP) Pulse Ox O2 Delivery O2 Flow Rate FiO2 11/26/16 07:28 37.2 128 20 121/71 (88) 95 Room Air 11/26/16 05:21 122 121/77 11/26/16 04:00 Room Air 11/26/16 03:10 36.3 88 20 118/67 (84) 95 Room Air Last Recorded Weight Weight (Kilograms): 67.600 Physical Exam GENERAL: elderly male,, AAA x 3, in no distress, but restless and confused NECK: Supple, no JVD. RESPIRATORY: clear to auscultation CARDIOVASCULAR: S1, S2 normal, rate rhythm regular. EXTREMITY: left AKA, rt lower extremity erythema and mild edema NEURO: speech fluent, no focal deficit PSYCHIATRY: confused, restless, agitated. 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) Laboratory Results Past 24 Hours 11/26/16 06:11 Test 11/25/16 10:44 11/25/16 12:24 11/26/16 06:11 Procalcitonin 0.22 ng/ml (0-0.5) Prothrombin Time 13.0 SECONDS (9.0-12.0) Prothromb Time International Ratio 1.2 (0.9-1.1) Anion Gap 9.0 mmol/L (3-11) Est Creatinine Clear Calc Drug Dose 38.1 ml/min Estimated GFR () 48.1 Estimated GFR (Non- 41.5 BUN/Creatinine Ratio 11.2 (10-20) Calcium Level 8.3 mg/dl (8.5-10.1) Allergies Coded Allergies: Iodinated Diagnostic Agents (Unverified Allergy, Unknown, ., 11/24/16) Medications Current Inpatient Medications Medications (Trade) Dose Ordered Sig/Greg Route Start Time Stop Time Status Last Admin Dose Admin Heparin Sodium (Porcine) (Heparin Sq 5000 Unit/0.5ml) 5,000 unit Q8 SQ 11/24/16 22:00 12/24/16 21:59 11/26/16 06:24 5,000 UNIT Acetaminophen (Tylenol Tab) 650 mg Q4H PRN PO 11/24/16 15:15 12/24/16 15:14 11/25/16 14:39 650 MG Ondansetron HCl (Zofran Inj) 4 mg Q6H PRN IV 11/24/16 15:15 12/24/16 15:14 Vancomycin HCl (Consult) 1 ea UD PRN N/A 11/24/16 15:10 12/24/16 15:09 Piperacillin Sod/ Tazobactam Sod (Consult) 1 ea UD PRN N/A 11/24/16 15:11 12/24/16 15:10 Acetaminophen/ Hydrocodone Bitart ([place] 10/325 Tab) 1 tab Q6H PRN PO 11/24/16 15:30 12/08/16 15:29 11/25/16 20:16 1 TAB Levothyroxine Sodium (Synthroid Tab) 100 mcg DAILYBB PO 11/25/16 06:00 12/25/16 06:59 11/25/16 05:54 100 MCG Multivitamins (Multivitamin Tab) 1 tab DAILY PO 11/25/16 09:00 12/25/16 08:59 11/25/16 08:03 1 TAB Piperacillin Sod/ Tazobactam Sod 3.375 gm/Dextrose 115 ml @ 28.75 mls/ hr Q8H IV 11/24/16 18:00 12/04/16 09:59 11/26/16 02:45 28.75 MLS/HR Acetylcysteine (Acetylcysteine Cap) 600 mg Q12H PO 11/25/16 18:00 11/27/16 06:01 11/26/16 06:23 600 MG Cefazolin Sodium 60 ml @ 100 mls/hr PREOP IV 11/26/16 06:00 11/27/16 05:59 Sodium Bicarbonate 100 meq/Sterile Water 1,100 ml @ 80 mls/hr [id number] IV 11/26/16 11:00 12/26/16 10:59 Diphenhydramine HCl (Benadryl Cap) 50 mg TODAY@1300 PO 11/26/16 13:00 11/26/16 13:01 Cimetidine (Tagamet Tab) 300 mg TODAY@1300 ONCE PO 11/26/16 13:00 11/26/16 13:01 Prednisone (PredniSONE TAB) 50 mg Q8H PO 11/26/16 02:00 11/26/16 10:01 11/26/16 02:45 50 MG Vancomycin HCl 1250 mg/Sodium Chloride 275 ml @ 125 mls/hr DAILY@2200 IV 11/25/16 22:00 12/04/16 12:59 11/25/16 22:02 125 MLS/HR Quetiapine Fumarate (seroQUEL TAB) 25 mg Q8 PRN PO 11/25/16 15:00 12/25/16 14:59 11/25/16 16:08 25 MG Sodium Chloride 1,000 ml @ 75 mls/hr [id number] IV 11/25/16 17:45 12/25/16 17:44 11/26/16 06:34 75 MLS/HR Haloperidol Lactate (Haldol Inj) 5 mg Q6 PRN IM 11/25/16 17:45 12/25/16 17:44 11/25/16 21:31 5 MG Trazodone HCl (Desyrel Tab) 50 mg HSZ PRN PO 11/25/16 19:15 12/25/16 19:14 11/25/16 20:15 50 MG Metoprolol Tartrate (Lopressor Iv) 5 mg Q6 PRN IV 11/25/16 20:00 12/25/16 19:59 11/26/16 05:21 5 MG Impression 76-year-old gentlemen with history of peripheral vascular disease, hypertension , status post left AKA, history of lung cancer small cell lung cancer treated with radiation therapy before, concern for new finding of metastatic disease, admitted to the hospital with right lower extremity cellulitis and ischemia. Found to have acute kidney injury on admission with no prior history of chronic kidney disease. Acute kidney injury seems to be hemodynamically mediated, Cr was 2.5 on admission, has been improving and 1.6 this am with IV hydration and improvement in blood pressure. Record review shows that creatinine was 1.7 approximately 2-3 weeks ago. Although patient is not aware of any history of chronic kidney disease, with patient's history of significant peripheral vascular disease, hypertension and longstanding history of smoking, it is quite possible that patient have some underlying renal insufficiency secondary to chronic ischemic nephropathy with microvascular disease and creatinine of 1.7 from 2-3 weeks ago could be his baseline. UA unremarkable. Recommendations --renal function continues to improve, will monitor with daily renal panel --avoid hypotension --agree with holding losartan and Lasix for now --avoid nephrotoxic medications will follow
[2016-11-26] MEDS ORDERED: CIMETIDINE 300 MG TAB PO ONE ×2 (11:00→13:00)
[2016-11-26 12:31] LABS: HEMATOCRIT 42.8 % (42-52); MEAN CELL VOLUME 67.9 fL (80-100); MEAN CORPUSCULAR HEMOGLOBIN 21.7 pg (25-34); MEAN PLATELET VOLUME 9.2 fL (7.4-10.4); PLATELET COUNT 772 K/uL (130-400); WHITE BLOOD COUNT 27.76 K/uL (4.8-10.8)
--- NOTE | 2016-11-26 14:46 | Pulmonology Progress Note ---
Pulmonary Progress Note Date of Service Nov 26, 2016. Attending Dr. Keen Subjective Patient states that he is feeling slightly improved today. His is with him and states that he has been confused. The patient's provided additional records that were reviewed in detail today. PET/CT from 06/06/14 showed a spiculated mass in the RUL which was significantly metabolically active concerning for metastatic disease. A small cavitary lesion in the RLL was decreased from prior exam and not appreciably metabolically active. Moderate right pleural effusion was noted at the time as well. 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 The patient was deemed a non-surgical candidate due to multiple comorbidities and high risk. The patient underwent SBRT instead. The patient's admits that the lung mass was low on their list of concerns at the time due to the problems with the patient's left leg. CT on 05/29/15 showed increase in the size of the RLL cavitary lesion, concerning for metastasis. Measurement at the time was 1.7 x 1.1 cm. The RUL nodule was 1.7 x 2.1 x 1.5 cm. Valley fever was in 2003 as well according to . CT scan of the chest showed spiculated 5.2 cm mass in the RUL with extension into the hilum concerning for primary bronchogenic carcinoma along with a cavitary 2.5 cm nodule in the RLL worrisome for regional metastatic disease. Partially calcified left lower lobe nodule also noted. CT scan images were viewed today and showed to the patient and his in detail. Labs reviewed today 11/26/16: WBC 27.76 Hgb 13.7 Creatinine 1.60 Electrolyses stable Blood cultures showing no growth to date. Patient continues Vancomycin and Zosyn. He also continues 50 mg Q 8h PO Prednisone. Objective VS today: Afebrile HR 92-128 BP stable SaO2 95-96% on room air General: Patient is awake, alert, cooperative, and in no acute distress. Well developed. Well-nourished. Head: Normocephalic, Atraumatic. ENT: PERRLA, No discharge, EOMI, Sclera normal Neck: Normal ROM. Trachea midline. No stridor Respiratory: No adventitious sounds heard on exam. Normal breath sounds. No respiratory distress. No accessory muscle use. Cardiovascular: Tachycardia Abdomen: Nontender to palpation. Normal bowel sounds hear throughout. No guarding. Abdomen is soft and nontender Extremities: Mild edema RLE. L AKA Neuro: Alert, Oriented x 3. CN II-XII grossly intact. Sensation and motor function grossly intact. Psych: Mood and affect are normal. Skin: Multiple right toes noted to have blackened tissue and darkened areas otherwise CT Chest: IMPRESSION: 1. Spiculated 5.2 cm mass in the right upper lobe with extension to the right hilum highly concerning for primary bronchogenic carcinoma. Cavitary 2.5 cm nodule in the right lower lobe is concerning for regional metastatic disease. 2. Allowing for noncontrast technique, no evidence of lymphadenopathy. PET/CT may be helpful. 3. Partially calcified left lower lobe nodule may represent a calcified granuloma but is somewhat indeterminate. If a PET/CT were obtained, this would be expected to be photopenic in setting of a granuloma. 4. Enlarged main pulmonary artery suggests pulmonary hypertension. Assessment & Plan Sepsis likely 2ndary to RLE Cellulitis with open wounds Lung mass RUL, Lung nodule RLL Hx Squamous cell Lung CA s/p SBRT KARINA Hyperkalemia PAD, hx Hightower's Dz Paroxysmal AFib Hypothyroidism Patient continues to be slightly disoriented. After review of records and old scans, it seems very likely that this patient's Squamous cell CA was not eradicated with SBRT in 2013. He had a repeat CT scan of the chest last year, and since that time, both of the lesions in his right lung have increased in size. RLL nodule seems likely to be regional metastatic disease, but without further workup it is unknown. 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 Cocci AB is pending. Will hold any antifungal therapy due to high likelihood of carcinoma over infection. Will order MRI of the brain to assess for distant metastasis. Patient seen and examined and the plan agreed with. Data Medications: Current Inpatient Medications Medications (Trade) Dose Ordered Sig/Greg Route Start Time Stop Time Status Last Admin Dose Admin Heparin Sodium (Porcine) (Heparin Sq 5000 Unit/0.5ml) 5,000 unit Q8 SQ 11/24/16 22:00 12/24/16 21:59 11/26/16 14:18 5,000 UNIT Acetaminophen (Tylenol Tab) 650 mg Q4H PRN PO 11/24/16 15:15 12/24/16 15:14 11/25/16 14:39 650 MG Ondansetron HCl (Zofran Inj) 4 mg Q6H PRN IV 11/24/16 15:15 12/24/16 15:14 Vancomycin HCl (Consult) 1 ea UD PRN N/A 11/24/16 15:10 12/24/16 15:09 Piperacillin Sod/ Tazobactam Sod (Consult) 1 ea UD PRN N/A 11/24/16 15:11 12/24/16 15:10 Acetaminophen/ Hydrocodone Bitart ([place] 10/325 Tab) 1 tab Q6H PRN PO 11/24/16 15:30 12/08/16 15:29 11/25/16 20:16 1 TAB Levothyroxine Sodium (Synthroid Tab) 100 mcg DAILYBB PO 11/25/16 06:00 12/25/16 06:59 11/25/16 05:54 100 MCG Multivitamins (Multivitamin Tab) 1 tab DAILY PO 11/25/16 09:00 12/25/16 08:59 11/25/16 08:03 1 TAB Piperacillin Sod/ Tazobactam Sod 3.375 gm/Dextrose 115 ml @ 28.75 mls/ hr Q8H IV 11/24/16 18:00 12/04/16 09:59 11/26/16 10:03 28.75 MLS/HR Vancomycin HCl 1250 mg/Sodium Chloride 275 ml @ 125 mls/hr DAILY@2200 IV 11/25/16 22:00 12/04/16 12:59 11/25/16 22:02 125 MLS/HR Quetiapine Fumarate (seroQUEL TAB) 25 mg Q8 PRN PO 11/25/16 15:00 12/25/16 14:59 11/25/16 16:08 25 MG Sodium Chloride 1,000 ml @ 75 mls/hr [id number] IV 11/25/16 17:45 12/25/16 17:44 11/26/16 06:34 75 MLS/HR Haloperidol Lactate (Haldol Inj) 5 mg Q6 PRN IM 11/25/16 17:45 12/25/16 17:44 9/19/17 21:31 5 MG Trazodone HCl (Desyrel Tab) 50 mg HSZ PRN PO 11/25/16 19:15 12/25/16 19:14 11/25/16 20:15 50 MG Metoprolol Tartrate (Lopressor Iv) 5 mg Q6 PRN IV 11/25/16 20:00 12/25/16 19:59 11/26/16 05:21 5 MG Acetylcysteine (Acetylcysteine Cap) 600 mg Q12H PO 11/26/16 18:00 11/28/16 06:01 Sodium Bicarbonate 100 meq/Sterile Water 1,100 ml @ 80 mls/hr [id number] IV 11/27/16 12:00 11/27/16 18:00 Prednisone (PredniSONE TAB) 50 mg Q8H PO 11/26/16 18:00 11/27/16 18:01 Diphenhydramine HCl (Benadryl Cap) 50 mg TODAY@1215 ONCE PO 11/27/16 12:15 11/27/16 12:16 Cimetidine (Tagamet Tab) 300 mg TODAY@1215 ONCE PO 11/27/16 12:15 11/27/16 12:16 I & O: 24-Hour Column 11/27/16 08:00 Intake Total 907 ml Output Total 350 ml Balance 557 ml Vital Signs: Date Time Temp Pulse Resp B/P (MAP) Pulse Ox O2 Delivery O2 Flow Rate FiO2 11/26/16 12:00 Room Air 11/26/16 11:24 37.0 92 20 124/65 (84) 96 Room Air 11/26/16 08:00 Room Air 11/26/16 07:28 37.2 128 20 121/71 (88) 95 Room Air 11/26/16 05:21 122 121/77 11/26/16 04:00 Room Air 11/26/16 03:10 36.3 88 20 118/67 (84) 95 Room Air 11/26/16 00:00 Room Air 11/25/16 23:23 36.7 93 21 135/73 (93) 95 Room Air 11/25/16 20:11 139 144/95 11/25/16 20:00 96 Room Air 11/25/16 19:03 37.0 139 18 144/95 (111) 96 Room Air 11/25/16 16:00 Room Air Laboratory Results: Last 24 Hours Test 11/26/16 06:11 11/26/16 11:58 Prothrombin Time 13.0 SECONDS Prothromb Time International Ratio 1.2 Sodium Level 141 mmol/L Potassium Level 5.0 mmol/L Chloride Level 111 mmol/L Carbon Dioxide Level 21 mmol/L Anion Gap 9.0 mmol/L Blood Urea Nitrogen 18 mg/dl Creatinine 1.60 mg/dl Est Creatinine Clear Calc Drug Dose 38.1 ml/min Estimated GFR () 48.1 Estimated GFR (Non- 41.5 BUN/Creatinine Ratio 11.2 Random Glucose 119 mg/dl Calcium Level 8.3 mg/dl White Blood Count 27.76 K/uL Red Blood Count 6.30 M/uL Hemoglobin 13.7 g/dL Hematocrit 42.8 % Mean Corpuscular Volume 67.9 fL Mean Corpuscular Hemoglobin 21.7 pg Mean Corpuscular Hemoglobin Concent 32.0 g/dl RDW Standard Deviation 46.7 fL RDW Coefficient of Variation 19.4 % Platelet Count 772 K/uL Mean Platelet Volume 9.2 fL
--- NOTE | 2016-11-26 19:09 | Progress Note ---
Internal Med Progress Note Date of Service: Nov 26, 2016. Provider Documentation: SUBJECTIVE: remains confused , trying to get out of bed ; requiring 1: 1 observation OBJECTIVE: Vital Signs-as noted below Exam: General-confused , agitated Eyes-sclera non icteric Neck-no JVD Lungs-CTA Heart-regular S1/s2 Abdomen-soft, Extremities-s/p left BKA , black rt toe with multiple black area on rt foot Neuro-confused , agitated ,no focal deficit noted Lab data as noted below. ASSESSMENT & PLAN: SEPSIS Due to RLE cellulitis, failed outpatient treatment with 3 days of Bactrim Meets SIRS criteria with leukocytosis (WBC 23K, was 16.9 on 11/03/16), + tachycardia, afebrile, no hypotension, POC lactate 2.44 -> repeat 1.0 Blood cultures no growth Continue empiric broad spectrum antibiotics-vancomycin and Zosyn worsening of leukocytosis 27 K today due to lower ext ischemia vs toe necrosis ID eval requested vascular surgery consulted for occluded rt superficial femoral artery will consult orthopedics in case pt needs amputation of rt great toe wound care nurse following DELIRIUM /CONFUSION : possible metabolic encephalopathy due to above MRI of brain combo ordered to rule out metastatic process ( lung CA with mets ) cont to monitor closely -and correct underlying condition fall precaution PRN Haldol ordered for agitation will D/C Ativan as found to be not effective ; pt was getting more agitated KARINA on CKD stage 3 : Creatinine improved 2.5 -> 1.9 -> 1.6 with IV hydration (was 1.67 on 11/03/16) cont to Hold Losartan and Lasix nephrology consulted -appreciate input HYPERKALEMIA due to above ARB on hold K level improved /low K diet follow daily PRP PERIPHERAL VASCULAR DISEASE RLE Doppler showed age indeterminate occlusion of superficial femoral artery, extensive atherosclerotic plaque within RLE, hemodynamically significant stenosis of the right common femoral artery Consult vascular surgery- Dr. Gallegos appreciate consult pt with need contrast angiogram to assess the level of vascular occlusion and possible intervention pt is willing for contrast study -knowing it may make his kidney function worse appreciate nephrology eval started on IV fluids per recommendation schedule for OR tomorrow HISTORY OF LUNG CANCER S/p radiation July 2013 CXR shows multiple lung nodules, ?metastatic appreciate Consult from pulmonology CT chest shows : Spiculated 5.2 cm mass in the right upper lobe with extension to the right hilum highly concerning for primary bronchogenic carcinoma. Cavitary 2.5 cm nodule in the right lower lobe is concerning for regional metastatic disease. report of CT Chest updated to pt and family MRI of brain combo ordered to r/o brain mets possibly contributing to confusion poor prognosis PAROXYSMAL ATRIAL FIBRILLATION hr stable now developed sinus tachycardia yesterday due to sepsis /KARINA /dehydration ordered for IV Lopressor ; cont PRN dose for HR> 100 added Lopressor 12.5 mg BID monitor in tele Has been off Coumadin x 1 week for toe bleeding- resolved Continue to hold Coumadin for possible vascular procedure is needed during hospitalization ELEVATED PLATELETS Likely due to acute illness/sepsis Elevated to 805 in October -> -> 680 Monitor HYPOTHYROIDISM Continue levothyroxine CHRONIC PAIN SYNDROME Continue home [place] DVT PROPHYLAXIS Coumadin is on hold Heparin SQ CODE STATUS DNR DISPOSITION cont to monitor in Tele will need PT/OT eval prior to discharge will benefit with rehab Follows with Dr. Adams Amezcua for primary care Vital Signs: Date Time Temp Pulse Resp B/P (MAP) Pulse Ox O2 Delivery O2 Flow Rate FiO2 11/27/16 07:15 36.8 88 20 155/83 (107) 95 Room Air 171/87 (115) 11/27/16 04:00 36.1 80 20 168/73 (104) 97 Room Air 11/27/16 04:00 Room Air 11/26/16 23:59 Room Air 11/26/16 23:25 36.6 76 21 176/86 (116) 94 Room Air 11/26/16 20:00 96 Room Air 11/26/16 19:12 37.0 126 18 161/95 (117) 96 11/26/16 16:42 36.6 84 18 130/71 (90) 100 Room Air 11/26/16 16:00 96 Room Air 11/26/16 12:00 Room Air 11/26/16 11:24 37.0 92 20 124/65 (84) 96 Room Air Lab Results: Results Past 24 Hours Test 11/26/16 11:58 11/27/16 05:58 Range/Units White Blood Count 27.76 36.18 4.8-10.8 K/uL Red Blood Count 6.30 7.14 4.7-6.1 M/uL Hemoglobin 13.7 15.1 14.0-18.0 g/dL Hematocrit 42.8 48.9 42-52 % Mean Corpuscular Volume 67.9 68.5 80-100 fL Mean Corpuscular Hemoglobin 21.7 21.1 25-34 pg Mean Corpuscular Hemoglobin Concent 32.0 30.9 32-36 g/dl RDW Standard Deviation 46.7 46.9 36.4-46.3 fL RDW Coefficient of Variation 19.4 20.0 11.5-14.5 % Platelet Count 772 969 130-400 K/uL Mean Platelet Volume 9.2 9.1 7.4-10.4 fL Prothrombin Time 14.1 9.0-12.0 SECONDS Prothromb Time International Ratio 1.3 0.9-1.1 Sodium Level 140 136-145 mmol/L Potassium Level 4.4 3.5-5.1 mmol/L Chloride Level 111 98-107 mmol/L Carbon Dioxide Level 21 21-32 mmol/L Anion Gap 8.0 3-11 mmol/L Blood Urea Nitrogen 24 7-18 mg/dl Creatinine 1.80 0.60-1.40 mg/dl Est Creatinine Clear Calc Drug Dose 34.3 ml/min Estimated GFR () 41.7 Estimated GFR (Non- 36.0 BUN/Creatinine Ratio 13.1 10-20 Random Glucose 119 70-99 mg/dl Calcium Level 9.0 8.5-10.1 mg/dl
[2016-11-26] MEDS ORDERED: METOPROLOL TARTRATE 25 MG TAB PO SCH (21:00)
--- NOTE | 2016-11-26 22:00 | DIAGNOSTIC IMAGING REPORT ---
ORBIT RADIOGRAPHS 3 VIEWS HISTORY: pre-MRI screening. COMPARISON: None. FINDINGS: There are no radiopaque foreign bodies identified within the orbits. IMPRESSION: No radiopaque foreign bodies identified within the orbits. Electronically signed by: Vu Ambriz M.D. 11/26/2016 9:59 PM Dictated Date/Time: 11/26/2016 9:59 PM
[2016-11-26] MEDS ORDERED: GADAVIST IV PRN (22:30)
--- NOTE | 2016-11-26 22:36 | DIAGNOSTIC IMAGING REPORT ---
MRI OF THE BRAIN WITHOUT AND WITH IV CONTRAST CLINICAL HISTORY: Metastatic lung carcinoma COMPARISON STUDY: No previous studies for comparison. TECHNIQUE: MRI of the brain was performed from the vertex to the skull base utilizing various T1 and T2 weighted sequences. Following the IV administration of 6 mL of Gadavist contrast, additional enhanced images were obtained. FINDINGS: Sagittal T1, axial diffusion, proton density and T2 weighted axial, coronal FLAIR, and pre and post axial T1-weighted images were acquired. These were supplemented with post gadolinium coronal T1 weighted images. No intra or extra-axial mass lesions are visualized. Axial diffusion-weighted images reveal no evidence of acute or subacute infarction. There is no evidence of ventricular dilatation. Proton density T2-weighted and FLAIR images reveal scattered foci of increased T2 signal within the white matter, likely on a small vessel basis. There are no abnormal flow voids. There is no evidence of pathologic enhancement. There are bilateral mastoid effusions. IMPRESSION: 1. No evidence of intracranial metastasis 2. No evidence of acute or subacute infarction 3. Bilateral mastoid effusions 4. Foci of increased T2 and FLAIR signal within the white matter likely on a small vessel basis Electronically signed by: Vu Ambriz M.D. 11/26/2016 10:34 PM Dictated Date/Time: 11/26/2016 10:32 PM
[2016-11-26] MEDS: VANCOMYCIN INJ 1,250 MG in SODIUM CHLORIDE 0.9% 250ML 250 ML IV SCH (22:49)
[2016-11-27] VITALS (13 sets, daily range): BP systolic 126–171; BP diastolic 65–87; PULSE 62–88; TEMP 36.1–37.1; O2SAT 89–97
[2016-11-27] MEDS: PIPERACILL/TAZOBAC IV 3.375 GM in DEXTROSE 5% 100ML 100 ML IV SCH ×3 (01:49→18:13)
[2016-11-27] MEDS ORDERED: CEFAZOLIN 1000MG/55 ML D5W 55 ML IV SCH (06:00)
[2016-11-27] MEDS: ACETYLCYSTEINE 600 MG CAP PO SCH ×2 (06:14→18:18)
[2016-11-27] MEDS: LEVOTHYROXINE 100 MCG TAB PO SCH (06:14)
[2016-11-27] MEDS: HEPARIN SOD 5000 UNIT/0.5 ML CARP SQ SCH ×2 (06:17→22:31)
[2016-11-27 06:23] LABS: INR 1.3 (0.9-1.1); PROTHROMBIN TIME (PATIENT) 14.1 SECONDS (9.0-12.0)
[2016-11-27 06:32] LABS: HEMATOCRIT 48.9 % (42-52); MEAN CELL VOLUME 68.5 fL (80-100); MEAN CORPUSCULAR HEMOGLOBIN 21.1 pg (25-34); MEAN CORPUSCULAR HGB CONC 30.9 g/dl (32-36); MEAN PLATELET VOLUME 9.1 fL (7.4-10.4); PLATELET COUNT 969 K/uL (130-400); RED BLOOD COUNT 7.14 M/uL (4.7-6.1); WHITE BLOOD COUNT 36.18 K/uL (4.8-10.8)
[2016-11-27 06:42] LABS: BUN/CREATININE RATIO 13.1 (10-20); CREATININE 1.8 mg/dl (0.60-1.40); POTASSIUM 4.4 mmol/L (3.5-5.1)
[2016-11-27] MEDS: MULTIVITAMIN TAB PO SCH (09:17)
[2016-11-27] MEDS: METOPROLOL TARTRATE 50 MG TAB PO SCH ×2 (09:17→20:10)
--- NOTE | 2016-11-27 09:30 | DIAGNOSTIC IMAGING REPORT ---
CHEST ONE VIEW PORTABLE CLINICAL HISTORY: Repeat due to increased WBC fever COMPARISON STUDY: 11/24/2016 FINDINGS: Unchanging bilateral parenchymal nodularity. No new or interval process. Mild stable cardiomegaly. Diaphragms smooth. IMPRESSION: Stable multinodular pattern to the hemithoraces bilaterally. No new or interval finding. The above report was generated using voice recognition software. It may contain grammatical, syntax or spelling errors. Electronically signed by: Timothy Martinez M.D. 11/27/2016 9:29 AM Dictated Date/Time: 11/27/2016 9:28 AM
--- NOTE | 2016-11-27 10:25 | Pulmonology Progress Note ---
Pulmonary Progress Note Date of Service Nov 27, 2016. Attending Dr. Keen Subjective Patient states that he is feeling well this morning. He has no SOB, chest pain, or chest tightness. He continues to have edema and erythema of the right lower extremity. Brain MRI showed no evidence of mets. Images viewed. Patient continues on IV Vancomycin, PO Prednisone 50 mg Q 8h, IV Zosyn. WBC 36.18 Hgb 7.14 Creatinine 1.80 BUN 24 Calcium 9.0 Objective VS today: Afebrile Temp 36.1-36.8 C HR 76-88 RR 20 BP 168/73- 176/86 SaO2 94-97% on room air General: Patient is awake and alert. Well developed and well nourished. Head: Normocephalic, Atraumatic. ENT: PERRLA, No discharge, EOMI, Sclera normal Neck: Normal ROM. Trachea midline. No stridor Respiratory: No adventitious sounds heard on exam. Normal breath sounds. No respiratory distress. No accessory muscle use. Cardiovascular: Tachycardia Abdomen: Nontender to palpation. Normal bowel sounds hear throughout. No guarding. Abdomen is soft and nontender Extremities: Mild edema RLE. L AKA Neuro: Alert. Disoriented. Sensation and motor function grossly intact. Psych: Mood and affect are normal. MRI OF THE BRAIN WITHOUT AND WITH IV CONTRAST CLINICAL HISTORY: Metastatic lung carcinoma COMPARISON STUDY: No previous studies for comparison. TECHNIQUE: MRI of the brain was performed from the vertex to the skull base utilizing various T1 and T2 weighted sequences. Following the IV administration of 6 mL of Gadavist contrast, additional enhanced images were obtained. FINDINGS: Sagittal T1, axial diffusion, proton density and T2 weighted axial, coronal FLAIR, and pre and post axial T1-weighted images were acquired. These were supplemented with post gadolinium coronal T1 weighted images. No intra or extra-axial mass lesions are visualized. Axial diffusion-weighted images reveal no evidence of acute or subacute infarction. There is no evidence of ventricular dilatation. Proton density T2-weighted and FLAIR images reveal scattered foci of increased T2 signal within the white matter, likely on a small vessel basis. There are no abnormal flow voids. There is no evidence of pathologic enhancement. There are bilateral mastoid effusions. IMPRESSION: 1. No evidence of intracranial metastasis 2. No evidence of acute or subacute infarction 3. Bilateral mastoid effusions 4. Foci of increased T2 and FLAIR signal within the white matter likely on a small vessel basis Assessment & Plan Sepsis likely 2ndary to RLE Cellulitis with open wounds Lung mass RUL, Lung nodule RLL Hx Squamous cell Lung CA s/p SBRT KARINA Hyperkalemia PAD, hx Hightower's Dz Paroxysmal AFib Hypothyroidism Patient continues to be slightly disoriented. After review of records and old scans, it seems very likely that this patient's Squamous cell CA was not eradicated with SBRT in 2013. He had a repeat CT scan of the chest last year, and since that time, both of the lesions in his right lung have increased in size. RLL nodule seems likely to be regional metastatic disease, but without further workup it is unknown. MRI of brain did not show distant mets. 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 Cocci AB is pending. Will hold any antifungal therapy due to high likelihood of carcinoma over infection. Pulm will sign off. Please have patient follow up as an outpatient with the Pulmonary team at [facility] for further workup of lung mass and lung nodule. Thank you Patient seen examined and agree with above plan. Data Medications: Current Inpatient Medications Medications (Trade) Dose Ordered Sig/Greg Route Start Time Stop Time Status Last Admin Dose Admin Heparin Sodium (Porcine) (Heparin Sq 5000 Unit/0.5ml) 5,000 unit Q8 SQ 11/24/16 22:00 12/24/16 21:59 11/27/16 06:17 5,000 UNIT Acetaminophen (Tylenol Tab) 650 mg Q4H PRN PO 11/24/16 15:15 12/24/16 15:14 11/25/16 14:39 650 MG Ondansetron HCl (Zofran Inj) 4 mg Q6H PRN IV 11/24/16 15:15 12/24/16 15:14 Vancomycin HCl (Consult) 1 ea UD PRN N/A 11/24/16 15:10 12/24/16 15:09 Piperacillin Sod/ Tazobactam Sod (Consult) 1 ea UD PRN N/A 11/24/16 15:11 12/24/16 15:10 Acetaminophen/ Hydrocodone Bitart ([place] 10/325 Tab) 1 tab Q6H PRN PO 11/24/16 15:30 12/08/16 15:29 11/25/16 20:16 1 TAB Levothyroxine Sodium (Synthroid Tab) 100 mcg DAILYBB PO 11/25/16 06:00 12/25/16 06:59 11/27/16 06:14 100 MCG Multivitamins (Multivitamin Tab) 1 tab DAILY PO 11/25/16 09:00 12/25/16 08:59 11/25/16 08:03 1 TAB Piperacillin Sod/ Tazobactam Sod 3.375 gm/Dextrose 115 ml @ 28.75 mls/ hr Q8H IV 11/24/16 18:00 12/04/16 09:59 11/27/16 01:49 28.75 MLS/HR Vancomycin HCl 1250 mg/Sodium Chloride 275 ml @ 125 mls/hr DAILY@2200 IV 11/25/16 22:00 12/04/16 12:59 11/26/16 22:49 125 MLS/HR Quetiapine Fumarate (seroQUEL TAB) 25 mg Q8 PRN PO 11/25/16 15:00 12/25/16 14:59 11/25/16 16:08 25 MG Haloperidol Lactate (Haldol Inj) 5 mg Q6 PRN IM 11/25/16 17:45 12/25/16 17:44 11/25/16 21:31 5 MG Trazodone HCl (Desyrel Tab) 50 mg HSZ PRN PO 11/25/16 19:15 12/25/16 19:14 11/25/16 20:15 50 MG Metoprolol Tartrate (Lopressor Iv) 5 mg Q6 PRN IV 11/25/16 20:00 12/25/16 19:59 11/26/16 05:21 5 MG Acetylcysteine (Acetylcysteine Cap) 600 mg Q12H PO 11/26/16 18:00 11/28/16 06:01 11/27/16 06:14 600 MG Sodium Bicarbonate 100 meq/Sterile Water 1,100 ml @ 80 mls/hr [id number] IV 11/27/16 12:00 11/27/16 18:00 Prednisone (PredniSONE TAB) 50 mg Q8H PO 11/26/16 18:00 11/27/16 18:01 11/27/16 01:49 50 MG Diphenhydramine HCl (Benadryl Cap) 50 mg TODAY@1215 ONCE PO 11/27/16 12:15 11/27/16 12:16 Cimetidine (Tagamet Tab) 300 mg TODAY@1215 ONCE PO 11/27/16 12:15 11/27/16 12:16 Gadobutrol (Gadavist) 6 mmol UD PRN IV 11/26/16 22:30 11/30/16 22:29 Metoprolol Tartrate (Lopressor Tab) 50 mg BID PO 11/27/16 09:00 12/26/16 20:59 Vital Signs: Date Time Temp Pulse Resp B/P (MAP) Pulse Ox O2 Delivery O2 Flow Rate FiO2 11/27/16 07:15 36.8 88 20 155/83 (107) 95 Room Air 171/87 (115) 11/27/16 04:00 36.1 80 20 168/73 (104) 97 Room Air 11/27/16 04:00 Room Air 11/26/16 23:59 Room Air 11/26/16 23:25 36.6 76 21 176/86 (116) 94 Room Air 11/26/16 20:00 96 Room Air 11/26/16 19:12 37.0 126 18 161/95 (117) 96 11/26/16 16:42 36.6 84 18 130/71 (90) 100 Room Air 11/26/16 16:00 96 Room Air 11/26/16 12:00 Room Air 11/26/16 11:24 37.0 92 20 124/65 (84) 96 Room Air Laboratory Results: Last 24 Hours Test 11/26/16 11:58 11/27/16 05:58 White Blood Count 27.76 K/uL 36.18 K/uL Red Blood Count 6.30 M/uL 7.14 M/uL Hemoglobin 13.7 g/dL 15.1 g/dL Hematocrit 42.8 % 48.9 % Mean Corpuscular Volume 67.9 fL 68.5 fL Mean Corpuscular Hemoglobin 21.7 pg 21.1 pg Mean Corpuscular Hemoglobin Concent 32.0 g/dl 30.9 g/dl RDW Standard Deviation 46.7 fL 46.9 fL RDW Coefficient of Variation 19.4 % 20.0 % Platelet Count 772 K/uL 969 K/uL Mean Platelet Volume 9.2 fL 9.1 fL Prothrombin Time 14.1 SECONDS Prothromb Time International Ratio 1.3 Sodium Level 140 mmol/L Potassium Level 4.4 mmol/L Chloride Level 111 mmol/L Carbon Dioxide Level 21 mmol/L Anion Gap 8.0 mmol/L Blood Urea Nitrogen 24 mg/dl Creatinine 1.80 mg/dl Est Creatinine Clear Calc Drug Dose 34.3 ml/min Estimated GFR () 41.7 Estimated GFR (Non- 36.0 BUN/Creatinine Ratio 13.1 Random Glucose 119 mg/dl Calcium Level 9.0 mg/dl
[2016-11-27] MEDS ORDERED: NURSING VERBAL MED ORDER ONE (11:15)
--- NOTE | 2016-11-27 11:25 | Medical Consult ---
Consultation Date of Consultation: Nov 27, 2016. Attending Physician: Kristie Kaur M.D. Reason for Consultation: Sepsis History of Present Illness 76-year-old male with complicated past medical history including carcinoma of the lung, now considered probably metastatic, severe peripheral arterial disease status post left AKA, who presented to the hospital with 1 week history of progressively worsening pain, discoloration, swelling of his distal right foot, with subsequent erythema spreading up his lower leg. He was started on oral Bactrim without improvement. He came to the emergency department where he was found to have evidence of sepsis with elevated lactic acid, elevated creatinine, and evidence of early gangrenous changes of his right foot. Ultrasound show presence of severe arterial disease. Has been started empirically on vancomycin and Zosyn. Creatinine has improved. Discoloration of foot has worsened. Patient has marked leukocytosis. Cultures are negative to date. 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 (11) Thrombophilia Surgical Problems: (1) History of left above knee amputation (2) History of procedure for peripheral vascular disease (3) History of total right knee replacement (4) Status post above knee amputation of left lower extremity (5) Status post right knee replacement Family History Buerger's disease FATHER Hypertension Kidney disease SISTER Kidney stones Social History Smoking Status: Former Smoker (quit 2013, prior 2-3 ppd x 50 years) Smokeless Tobacco Use: No Alcohol Use: none recently, prior heavy alcohol use before 2013 Drug Use: none Marital Status: Housing Status: lives with significant other 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) Allergies Coded Allergies: Iodinated Diagnostic Agents (Unverified Allergy, Unknown, ., 11/24/16) Current Inpatient Medications Current Inpatient Medications Medications (Trade) Dose Ordered Sig/Greg Route Start Time Stop Time Status Last Admin Dose Admin Heparin Sodium (Porcine) (Heparin Sq 5000 Unit/0.5ml) 5,000 unit Q8 SQ 11/24/16 22:00 12/24/16 21:59 11/27/16 06:17 5,000 UNIT Acetaminophen (Tylenol Tab) 650 mg Q4H PRN PO 11/24/16 15:15 12/24/16 15:14 11/25/16 14:39 650 MG Ondansetron HCl (Zofran Inj) 4 mg Q6H PRN IV 11/24/16 15:15 12/24/16 15:14 Vancomycin HCl (Consult) 1 ea UD PRN N/A 11/24/16 15:10 12/24/16 15:09 Piperacillin Sod/ Tazobactam Sod (Consult) 1 ea UD PRN N/A 11/24/16 15:11 12/24/16 15:10 Acetaminophen/ Hydrocodone Bitart ([place] 10/325 Tab) 1 tab Q6H PRN PO 11/24/16 15:30 12/08/16 15:29 11/25/16 20:16 1 TAB Levothyroxine Sodium (Synthroid Tab) 100 mcg DAILYBB PO 11/25/16 06:00 12/25/16 06:59 11/27/16 06:14 100 MCG Multivitamins (Multivitamin Tab) 1 tab DAILY PO 11/25/16 09:00 12/25/16 08:59 11/27/16 09:17 1 TAB Piperacillin Sod/ Tazobactam Sod 3.375 gm/Dextrose 115 ml @ 28.75 mls/ hr Q8H IV 11/24/16 18:00 12/04/16 09:59 11/27/16 10:51 28.75 MLS/HR Vancomycin HCl 1250 mg/Sodium Chloride 275 ml @ 125 mls/hr DAILY@2200 IV 11/25/16 22:00 12/04/16 12:59 11/26/16 22:49 125 MLS/HR Quetiapine Fumarate (seroQUEL TAB) 25 mg Q8 PRN PO 11/25/16 15:00 12/25/16 14:59 11/25/16 16:08 25 MG Haloperidol Lactate (Haldol Inj) 5 mg Q6 PRN IM 11/25/16 17:45 12/25/16 17:44 11/25/16 21:31 5 MG Trazodone HCl (Desyrel Tab) 50 mg HSZ PRN PO 11/25/16 19:15 12/25/16 19:14 11/25/16 20:15 50 MG Metoprolol Tartrate (Lopressor Iv) 5 mg Q6 PRN IV 11/25/16 20:00 12/25/16 19:59 11/26/16 05:21 5 MG Acetylcysteine (Acetylcysteine Cap) 600 mg Q12H PO 11/26/16 18:00 11/28/16 06:01 11/27/16 06:14 600 MG Sodium Bicarbonate 100 meq/Sterile Water 1,100 ml @ 80 mls/hr [id number] IV 11/27/16 12:00 11/27/16 18:00 Prednisone (PredniSONE TAB) 50 mg Q8H PO 11/26/16 18:00 11/27/16 18:01 11/27/16 10:51 50 MG Gadobutrol (Gadavist) 6 mmol UD PRN IV 11/26/16 22:30 11/30/16 22:29 Metoprolol Tartrate (Lopressor Tab) 50 mg BID PO 11/27/16 09:00 12/26/16 20:59 11/27/16 09:17 50 MG Cimetidine (Tagamet Tab) 300 mg TODAY@1400 PO 11/27/16 14:00 11/27/16 15:00 Diphenhydramine HCl (Benadryl Cap) 50 mg TODAY@1400 PO 11/27/16 14:00 11/27/16 15:00 Review of Systems Not obtainable because of patient's mental status Physical Exam Date Time Temp Pulse Resp B/P (MAP) Pulse Ox O2 Delivery O2 Flow Rate FiO2 11/27/16 11:05 37.1 62 18 167/85 (112) 96 Room Air 11/27/16 07:15 36.8 88 20 155/83 (107) 95 Room Air 171/87 (115) 11/27/16 04:00 36.1 80 20 168/73 (104) 97 Room Air 11/27/16 04:00 Room Air 11/26/16 23:59 Room Air 11/26/16 23:25 36.6 76 21 176/86 (116) 94 Room Air 11/26/16 20:00 96 Room Air 11/26/16 19:12 37.0 126 18 161/95 (117) 96 11/26/16 16:42 36.6 84 18 130/71 (90) 100 Room Air 11/26/16 16:00 96 Room Air 11/26/16 12:00 Room Air 11/26/16 11:24 37.0 92 20 124/65 (84) 96 Room Air General Appearance: WD/WN, no apparent distress Head: normocephalic, atraumatic Eyes: normal inspection, EOMI, sclerae normal ENT: normal ENT inspection, pharynx normal Neck: supple, no adenopathy, thyroid normal, trachea midline Respiratory/Chest: chest non-tender, lungs clear, normal breath sounds, no respiratory distress Cardiovascular: regular rate, rhythm, no gallop, no murmur Abdomen/GI: normal bowel sounds, non tender, soft, no organomegaly Back: normal inspection, no CVA tenderness Extremities/Musculoskelatal: + slow capillary refill, + pertinent finding ( gangrenous changes of right distal foot) Neurologic/Psych: alert, + disoriented Skin: normal color, no rash, + pertinent finding ( gangrene of toes with erythema to below the knee) Lymphatic: no adenopathy Laboratory Results RUN DATE: 11/26/16 [facility] PAGE 1 RUN TIME: 0656 Specimen Inquiry PATIENT: ERICK BAR LOC: [place] # : [id number] AGE/SX: 76/M ROOM: E204 REG : 11/24/[address]: Kristie Kaur M.D. : 1940 BED: 1 DIS : STATUS: ADM IN TLOC: SPEC #: [id number] LISS: 11/24/16-1199 STATUS: RES REQ #: [id number] RECD: 11/24/16-[address]: Jose Luis Serrano M.D. SOURCE: BLOOD ENTR: 11/24/16-[address]: SPDESC: ORDERED: BLOOD CULTURE Procedure Result Verified Site BLD CULT Preliminary 11/26/16-655 NO GROWTH TO DATE. Last 24 Hours Test 11/26/16 11:58 11/27/16 05:58 White Blood Count 27.76 K/uL 36.18 K/uL Red Blood Count 6.30 M/uL 7.14 M/uL Hemoglobin 13.7 g/dL 15.1 g/dL Hematocrit 42.8 % 48.9 % Mean Corpuscular Volume 67.9 fL 68.5 fL Mean Corpuscular Hemoglobin 21.7 pg 21.1 pg Mean Corpuscular Hemoglobin Concent 32.0 g/dl 30.9 g/dl RDW Standard Deviation 46.7 fL 46.9 fL RDW Coefficient of Variation 19.4 % 20.0 % Platelet Count 772 K/uL 969 K/uL Mean Platelet Volume 9.2 fL 9.1 fL Prothrombin Time 14.1 SECONDS Prothromb Time International Ratio 1.3 Sodium Level 140 mmol/L Potassium Level 4.4 mmol/L Chloride Level 111 mmol/L Carbon Dioxide Level 21 mmol/L Anion Gap 8.0 mmol/L Blood Urea Nitrogen 24 mg/dl Creatinine 1.80 mg/dl Est Creatinine Clear Calc Drug Dose 34.3 ml/min Estimated GFR () 41.7 Estimated GFR (Non- 36.0 BUN/Creatinine Ratio 13.1 Random Glucose 119 mg/dl Calcium Level 9.0 mg/dl CHEST ONE VIEW PORTABLE CLINICAL HISTORY: Repeat due to increased WBC fever COMPARISON STUDY: 11/24/2016 FINDINGS: Unchanging bilateral parenchymal nodularity. No new or interval process. Mild stable cardiomegaly. Diaphragms smooth. IMPRESSION: Stable multinodular pattern to the hemithoraces bilaterally. No new or interval finding. The above report was generated using voice recognition software. It may contain grammatical, syntax or spelling errors. Assessment & Plan 76-year-old male with severe peripheral arterial disease, status post left AKA , atrial fibrillation, now with sepsis, progressive gangrenous changes of right foot, and likely associated cellulitis. Patient should be continued on vancomycin and Zosyn for now pending further culture results. Will need further vascular intervention in probable partial foot amputation at some time in the future. Will discuss with all involved. Will follow.
[2016-11-27] MEDS ORDERED: SODIUM BICARBONATE 8.4% INJ 100 MEQ in STERILE WATER 1000 ML 1,000 ML IV SCH (12:00)
[2016-11-27] MEDS ORDERED: CIMETIDINE 300 MG TAB PO ONE (12:15)
--- NOTE | 2016-11-27 12:51 | Nephrology Progress Note ---
Nephrology Progress Note Date of Service Nov 27, 2016. Chief Complaint F/U for acute kidney injury Mya Multani was Seen and examined in his room this morning. No confusion. BP slightly elevated. Creatinine slightly variable from 1.6-1.8, electrolyte acceptable. Remain non-oliguric, volume status stable. Review of Systems A complete review of systems was performed. Pertinent positives are noted above. All other systems are negative. Vital Signs Last 8 Hrs Date Time Temp Pulse Resp B/P (MAP) Pulse Ox O2 Delivery O2 Flow Rate FiO2 11/27/16 11:05 37.1 62 18 167/85 (112) 96 Room Air 11/27/16 07:15 36.8 88 20 155/83 (107) 95 Room Air 171/87 (115) Last Recorded Weight Weight (Kilograms): 71.000 Physical Exam GENERAL: elderly male,, AAA x 3, in no distress NECK: Supple, no JVD. RESPIRATORY: clear to auscultation CARDIOVASCULAR: S1, S2 normal, rate rhythm regular. 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) Laboratory Results Past 24 Hours 11/27/16 05:58 11/27/16 05:58 Test 11/27/16 05:58 Red Blood Count 7.14 M/uL (4.7-6.1) Mean Corpuscular Volume 68.5 fL (80-100) Mean Corpuscular Hemoglobin 21.1 pg (25-34) Mean Corpuscular Hemoglobin Concent 30.9 g/dl (32-36) RDW Standard Deviation 46.9 fL (36.4-46.3) RDW Coefficient of Variation 20.0 % (11.5-14.5) Mean Platelet Volume 9.1 fL (7.4-10.4) Prothrombin Time 14.1 SECONDS (9.0-12.0) Prothromb Time International Ratio 1.3 (0.9-1.1) Anion Gap 8.0 mmol/L (3-11) Est Creatinine Clear Calc Drug Dose 34.3 ml/min Estimated GFR () 41.7 Estimated GFR (Non- 36.0 BUN/Creatinine Ratio 13.1 (10-20) Calcium Level 9.0 mg/dl (8.5-10.1) Allergies Coded Allergies: Iodinated Diagnostic Agents (Unverified Allergy, Unknown, ., 11/24/16) Medications Current Inpatient Medications Medications (Trade) Dose Ordered Sig/Greg Route Start Time Stop Time Status Last Admin Dose Admin Heparin Sodium (Porcine) (Heparin Sq 5000 Unit/0.5ml) 5,000 unit Q8 SQ 11/24/16 22:00 12/24/16 21:59 11/27/16 06:17 5,000 UNIT Acetaminophen (Tylenol Tab) 650 mg Q4H PRN PO 11/24/16 15:15 12/24/16 15:14 11/25/16 14:39 650 MG Ondansetron HCl (Zofran Inj) 4 mg Q6H PRN IV 11/24/16 15:15 12/24/16 15:14 Vancomycin HCl (Consult) 1 ea UD PRN N/A 11/24/16 15:10 12/24/16 15:09 Piperacillin Sod/ Tazobactam Sod (Consult) 1 ea UD PRN N/A 11/24/16 15:11 12/24/16 15:10 Acetaminophen/ Hydrocodone Bitart (Palmer 10/325 Tab) 1 tab Q6H PRN PO 11/24/16 15:30 12/08/16 15:29 11/25/16 20:16 1 TAB Levothyroxine Sodium (Synthroid Tab) 100 mcg DAILYBB PO 11/25/16 06:00 12/25/16 06:59 11/27/16 06:14 100 MCG Multivitamins (Multivitamin Tab) 1 tab DAILY PO 11/25/16 09:00 12/25/16 08:59 11/27/16 09:17 1 TAB Piperacillin Sod/ Tazobactam Sod 3.375 gm/Dextrose 115 ml @ 28.75 mls/ hr Q8H IV 11/24/16 18:00 12/04/16 09:59 11/27/16 10:51 28.75 MLS/HR Vancomycin HCl 1250 mg/Sodium Chloride 275 ml @ 125 mls/hr DAILY@2200 IV 11/25/16 22:00 12/04/16 12:59 11/26/16 22:49 125 MLS/HR Quetiapine Fumarate (seroQUEL TAB) 25 mg Q8 PRN PO 11/25/16 15:00 12/25/16 14:59 11/25/16 16:08 25 MG Haloperidol Lactate (Haldol Inj) 5 mg Q6 PRN IM 11/25/16 17:45 12/25/16 17:44 11/25/16 21:31 5 MG Trazodone HCl (Desyrel Tab) 50 mg HSZ PRN PO 11/25/16 19:15 12/25/16 19:14 11/25/16 20:15 50 MG Metoprolol Tartrate (Lopressor Iv) 5 mg Q6 PRN IV 11/25/16 20:00 12/25/16 19:59 11/26/16 05:21 5 MG Acetylcysteine (Acetylcysteine Cap) 600 mg Q12H PO 11/26/16 18:00 11/28/16 06:01 11/27/16 06:14 600 MG Sodium Bicarbonate 100 meq/Sterile Water 1,100 ml @ 80 mls/hr [id number] IV 11/27/16 12:00 11/27/16 18:00 11/27/16 12:31 80 MLS/HR Prednisone (PredniSONE TAB) 50 mg Q8H PO 11/26/16 18:00 11/27/16 18:01 11/27/16 10:51 50 MG Gadobutrol (Gadavist) 6 mmol UD PRN IV 11/26/16 22:30 11/30/16 22:29 Metoprolol Tartrate (Lopressor Tab) 50 mg BID PO 11/27/16 09:00 12/26/16 20:59 11/27/16 09:17 50 MG Cimetidine (Tagamet Tab) 300 mg TODAY@1400 PO 11/27/16 14:00 11/27/16 15:00 Diphenhydramine HCl (Benadryl Cap) 50 mg TODAY@1400 PO 11/27/16 14:00 11/27/16 15:00 Impression 76-year-old gentlemen with history of peripheral vascular disease, hypertension , status post left AKA, history of small cell lung cancer treated with radiation therapy before,new finding of metastatic disease, admitted to the hospital with right lower extremity cellulitis and ischemia. Doppler showing superficial femoral artery stenosis, now getting evaluated for angiogram. Vascular surgery and Orthopedic consulted for for possible need for revascularization. Found to have acute kidney injury on admission with no prior history of chronic kidney disease. Acute kidney injury seems to be hemodynamically mediated, Cr was 2.5 on admission, has been improving and 1.6 this am with IV hydration and improvement in blood pressure. Record review shows that creatinine was 1.7 approximately 2-3 weeks ago. Although patient is not aware of any history of chronic kidney disease, with patient's history of significant peripheral vascular disease, hypertension and longstanding history of smoking, it is quite possible that patient have some underlying renal insufficiency secondary to chronic ischemic nephropathy with microvascular disease and creatinine of 1.7 from 2-3 weeks ago could be his baseline. UA unremarkable. Seen by pulmonology for metastatic lung cancer, no brain Mets on MRI, will follow with Pulmonary as an outpatient, will need Oncology follow-up as well. Recommendations --renal function somewhat stable, creatinine 1 0.6-1.8, electrolyte and volume status acceptable, will monitor with daily renal panel --increase metoprolol to 50 twice a day --IV hydration prior to angiogram --agree with holding losartan and Lasix for now --avoid nephrotoxic medications will follow
[2016-11-27] MEDS ORDERED: CIMETIDINE 300 MG TAB PO SCH (14:00)
[2016-11-27] MEDS ORDERED: FENTANYL CITRATE INJ 50 MCG/1 ML 2 ML VIAL ONE (14:13)
[2016-11-27] MEDS ORDERED: MIDAZOLAM HCL 1 MG/ML 2ML VIAL ONE (14:14)
--- NOTE | 2016-11-27 15:26 | Procedure Note ---
Pre-Mod Sedation Assessment General Date of Moderate Sedation: Nov 27, 2016. Vital Signs: Vital Signs Past 12 Hours Date Time Temp Pulse Resp B/P (MAP) Pulse Ox O2 Delivery O2 Flow Rate FiO2 11/27/16 14:14 37.1 62 18 167/85 96 Room Air 11/27/16 11:05 37.1 62 18 167/85 (112) 96 Room Air 11/27/16 07:15 36.8 88 20 155/83 (107) 95 Room Air 171/87 (115) 11/27/16 04:00 36.1 80 20 168/73 (104) 97 Room Air 11/27/16 04:00 Room Air Pre-Sedation Airway Assessment Oral Cavity: WNL Short Thick Neck: No Hx of Sleep Apnea: No Smoking Status: Former Smoker Mallampati Classification: Class I ASA Classification: Class III Notes The planned sedation has been discussed with the patient and consent obtained. I have identified the patient, determined the appropriateness of sedation and have assessed the patient immediately prior to the procedure. All medicine(s) and interventions are by my order.
--- NOTE | 2016-11-27 15:26 | Progress Note ---
Progress Note Date of Service Nov 27, 2016. Progress Note Patient for arteriography with possible intervention. I have discussed the risks options and benefits of the procedure with the patient. The patient understands the risks options and benefits and agrees to the procedure. I have examined the patient, reviewed the History & Physical and in the interval since the performance of the History & Physical I have noted the following changes of clinical significance: No changes noted
[2016-11-27] MEDS ORDERED: LIDOCAINE HCL 1% 20 ML VIAL INJ ONE (16:13)
[2016-11-27] MEDS ORDERED: IODIXANOL (VISIPAQUE) 270 MG/ML 150ML FLUSH ONE (16:29)
--- NOTE | 2016-11-27 16:55 | [facility] Post Operative Brief Note ---
Immediate Operative Summary Operative Date Nov 27, 2016. Pre-Operative Diagnosis ischemic right leg Post-Operative Diagnosis same Procedure(s) Performed Right Lower Extremity Angiogram, Mechanical Closure Right Femoral Artery Surgeon Dr. Gallegos Sewing Line Baler Surgeon(s) Dr. Yadi Browne Fellow Estimated Blood Loss 2 ml Findings no vessels seen below the profunda femoral artery. Will need amputation of the right leg Specimens none Anesthesia Local Complication(s) None Disposition PCU
[2016-11-27] MEDS: HALOPERIDOL LACTATE 5 MG/ML 1 ML VIAL IM PRN (17:48)
[2016-11-27] MEDS ORDERED: DiphenhydrAMINE HCL 50 MG/ML VIAL IV ONE (20:00)
[2016-11-27] MEDS: SODIUM CHLORIDE 0.9% 1000ML 1,000 ML IV SCH (20:01)
[2016-11-27] MEDS: FAMOTIDINE IV INJ 20 MG in DEXTROSE 5% 100ML 100 ML IV SCH (20:09)
[2016-11-27] MEDS: METHYLPREDNISOLONE IV 60 MG in SYRINGE 0 ML IV SCH (20:09)
--- NOTE | 2016-11-27 20:14 | Progress Note ---
Internal Med Progress Note Date of Service: Nov 27, 2016. Provider Documentation: SUBJECTIVE: pt remains confused , disoriented underwent rt lower extremity angiogram -no vascular flow below profunda femoral artery pt will need amputation of rt leg Son ( Anthony Multani ) present at bedside -mentions that pt was totally oriented 3 weeks back , drove himself to [facility] , when to replaced by [facility] , arrange breakfast banquet for family gathering son is shocked to see pt like that -complete change from his baseline pt rt foot and rt great toe showing progressive discoloration , no palpable pulse pt developed diffuse rash on face and torso , has swelling on face and neck area no hypoxia or air way compromise noted was pre medicated for contrast allergy Vitals remains stable with SBP in 120. HR variable between 80-100 D/w with son regarding prospect for amputation of remaining leg -to prevent septic shock form necrotic limbs Son is in agreement , pt had BKA of left few years back almost to the similar reason , even after multiple procedure left leg was not salvageable Spoke with Dr Gallegos -will take pt to OR tomorrow for amputation of rt lower ext OBJECTIVE: Vital Signs-as noted below Exam: General-confused , dis oriented Eyes-sclera non icteric Neck-diffuse erythematous rash on face .neck and torso , swelling around neck , no drooling noted , no stridor Lungs- diminished Heart-regular Abdomen-soft, Extremities-s/p left BKA , Rt leg -black rt toe /cold -progression of discoloration to toe and dorsal foot Neuro-confused , delirious Lab data as noted below. ASSESSMENT & PLAN: SEVERE SEPSIS due to necrotic /ischemic rt lower limbs admitted with leukocytosis (WBC 23K, was 16.9 on 11/03/16), + tachycardia, afebrile, no hypotension, POC lactate 2.44 Blood cultures on admission had no growth repeat blood cultured ordered today has been on empiric broad spectrum antibiotics-vancomycin and Zosyn worsening of leukocytosis 27 K -> 36 K s/p angiogram of rt lower ext : no vascular flow below rt Profunda femoris artery , recommend rt lower ext amputation Orthopedics consulted, -was not able to evaluate pt today on floor and pt was in OR D/w Orthopedics and Vascular surgery -given progressive leukocytosis , confusion , KARINA -very high risk for overwhelming sepsis with septic shock with out any definitive tx -amputation of ischemic /necrotic limb Dr Gallegos is agreeable to take pt to OR tomorrow for procedure ordered for NPO past midnight hold Sub q heparin for now ordered to continue IVF NSS @ 100 ml /hr Carmichael catheter placed to monitor out put signed put given to Night time information systems administrator Hospitalist -if pt develops hypotension / tachycardia -hemodynamic compromise will need IV fluid bolus and ICU transfer for possible pressors information systems administrator Cook Short Order updated prognosis remains Guarded DIFFUSE RASH /NECK SWELLING ; developed after angiogram possible due to contrast allergy -noted to have allergy to contrast dye pt was pre medicated ordered for IV Steroid /Benadryl/IV H1 jose cont IVF THROMBOCYTOSIS markedly elevated platelet count > 900 K due to severe sepsis ? high risk for thrombosis /DIC follow CBC daily DELIRIUM /CONFUSION : metabolic encephalopathy due to above MRI of brain combo shows no metastatic process ( lung CA with mets ) ordered for prn Risperdal , PRN Haldol Getting Benadryl for Allergic reaction to contrast dye avoid BDZ ./narcotics -made symptom worse KARINA on CKD stage 3 : Creatinine improved 2.5 -> 1.9 -> 1.6 -> 1.8 started on IV fluids follow PRP tomorrow -increase risk for ATN with sepsis /contrast induced nephropathy cont to Hold Losartan and Lasix nephrology consulted -appreciate input SEVERE PERIPHERAL VASCULAR DISEASE RLE Doppler showed age indeterminate occlusion of superficial femoral artery, extensive atherosclerotic plaque within RLE, hemodynamically significant stenosis of the right common femoral artery Consulted vascular surgery- Dr. Gallegos appreciate consult s/p angiogram of rt lower ext shows total occlusion of vessels /no flow beyond profunda femoris artery rt great foot and toe developed progressive ischemic change will need amputation of rt lower ext Spoke with Dr Gallegos schedule for OR tomorrow for AKA of rt lower limb HISTORY OF LUNG CANCER S/p radiation July 2013 CXR shows multiple lung nodules, ?metastatic appreciate Consult from pulmonology CT chest shows : Spiculated 5.2 cm mass in the right upper lobe with extension to the right hilum highly concerning for primary bronchogenic carcinoma. Cavitary 2.5 cm nodule in the right lower lobe is concerning for regional metastatic disease. report of CT Chest updated to pt and family MRI of brain combo ordered show now intracranial mets poor prognosis for aggressive lung malignancy PAROXYSMAL ATRIAL FIBRILLATION sinus tachycardia due to sepsis ordered for IV Lopressor ; cont PRN dose for HR> 100 cont PO Lopressor DVT PROPHYLAXIS high risk hold sib q heparin for OR tomorrow CODE STATUS DNR DISPOSITION: pt's has ongoing sepsis with ischemic limb cont PCU monitoring low threshold to transfer to ICU with any indication for hemodynamic instability keep pt NPO plan for OR for surgical amputation of rt limb by Dr Gallegos tomorrow Update given to son and Contact : Son Mariusz Multani Terry Alvarez Vital Signs: Date Time Temp Pulse Resp B/P (MAP) Pulse Ox O2 Delivery O2 Flow Rate FiO2 11/27/16 19:29 36.7 70 18 126/67 (86) 94 Room Air 11/27/16 18:30 36.7 71 20 132/81 (98) 93 Room Air 11/27/16 18:15 84 20 157/84 (108) 89 Room Air 11/27/16 18:00 69 20 150/65 (93) 96 11/27/16 17:26 70 20 169/82 (111) 94 11/27/16 17:11 72 20 155/83 (107) 97 Room Air 11/27/16 17:00 37.1 73 20 150/82 (104) 96 Room Air 11/27/16 16:00 Room Air 11/27/16 14:14 37.1 62 18 167/85 96 Room Air 11/27/16 12:00 Room Air 11/27/16 11:05 37.1 62 18 167/85 (112) 96 Room Air 11/27/16 08:00 Room Air 11/27/16 07:15 36.8 88 20 155/83 (107) 95 Room Air 171/87 (115) 11/27/16 04:00 36.1 80 20 168/73 (104) 97 Room Air 11/27/16 04:00 Room Air 11/26/16 23:59 Room Air 11/26/16 23:25 36.6 76 21 176/86 (116) 94 Room Air Lab Results: Results Past 24 Hours Test 11/27/16 05:58 11/27/16 19:27 11/27/16 20:07 Range/Units White Blood Count 36.18 36.42 4.8-10.8 K/uL Red Blood Count 7.14 6.87 4.7-6.1 M/uL Hemoglobin 15.1 15.3 14.0-18.0 g/dL Hematocrit 48.9 46.5 42-52 % Mean Corpuscular Volume 68.5 67.7 80-100 fL Mean Corpuscular Hemoglobin 21.1 22.3 25-34 pg Mean Corpuscular Hemoglobin Concent 30.9 32.9 32-36 g/dl RDW Standard Deviation 46.9 46.7 36.4-46.3 fL RDW Coefficient of Variation 20.0 20.0 11.5-14.5 % Platelet Count 969 903 130-400 K/uL Mean Platelet Volume 9.1 9.1 7.4-10.4 fL Prothrombin Time 14.1 9.0-12.0 SECONDS Prothromb Time International Ratio 1.3 0.9-1.1 Sodium Level 140 136-145 mmol/L Potassium Level 4.4 3.5-5.1 mmol/L Chloride Level 111 98-107 mmol/L Carbon Dioxide Level 21 21-32 mmol/L Anion Gap 8.0 3-11 mmol/L Blood Urea Nitrogen 24 7-18 mg/dl Creatinine 1.80 0.60-1.40 mg/dl Est Creatinine Clear Calc Drug Dose 34.3 ml/min Estimated GFR () 41.7 Estimated GFR (Non- 36.0 BUN/Creatinine Ratio 13.1 10-20 Random Glucose 119 70-99 mg/dl Calcium Level 9.0 8.5-10.1 mg/dl Nucleated RBC Absolute Count (auto) 0.08 0-0 K/uL Nucleated Red Blood Cells % 0.2 % Microbiology Results 11/27/16 Blood Culture, Received Pending 11/27/16 Blood Culture, Received Pending 11/27/16 C.difficile Toxin B Gene (PCR), Received Pending
[2016-11-27 20:39] LABS: HEMATOCRIT 46.5 % (42-52); MEAN CELL VOLUME 67.7 fL (80-100); MEAN CORPUSCULAR HEMOGLOBIN 22.3 pg (25-34); MEAN CORPUSCULAR HGB CONC 32.9 g/dl (32-36); MEAN PLATELET VOLUME 9.1 fL (7.4-10.4); PLATELET COUNT 903 K/uL (130-400); RED BLOOD COUNT 6.87 M/uL (4.7-6.1); WHITE BLOOD COUNT 36.42 K/uL (4.8-10.8)
[2016-11-27 20:58] LABS: BASO % 0.1 %; BASO ABS # 0.04 K/uL (0-0.2); COMPLETE YES; IG% 1.2 %; LYMPH % 2.4 %; LYMPH ABS # 0.89 K/uL (1.2-3.4); MICROCYTOSIS PRESENT; NEUT % 92.3 %; POLYCHROMASIA 1+
[2016-11-27 21:05] LABS: ALB/GLOB RATIO 0.8 (0.9-2); BUN/CREATININE RATIO 16.5 (10-20); CALCIUM 8.8 mg/dl (8.5-10.1); CREATININE 1.7 mg/dl (0.60-1.40); POTASSIUM 4.4 mmol/L (3.5-5.1)
[2016-11-27] MEDS ORDERED: VANCOMYCIN TROUGH SCH (21:30)
[2016-11-27] MEDS: RISPERIDONE ODT 0.5MG PO PRN (21:59)
[2016-11-27] MEDS ORDERED: DiphenhydrAMINE INJ 12.5 MG in SYRINGE 0 ML IV SCH (22:00)
[2016-11-27] MEDS: VANCOMYCIN INJ 1,250 MG in SODIUM CHLORIDE 0.9% 250ML 250 ML IV SCH (22:30)
[2016-11-27] MEDS: VANCOMYCIN HCL 250 MG/5 ML SOLN PO SCH (23:31)
[2016-11-27] MEDS: RASPBERRY SYRUP 5 ML UDP PO SCH (23:32)
[2016-11-28] VITALS (14 sets, daily range): BP systolic 112–178; BP diastolic 54–104; PULSE 60–98; TEMP 36.6–37.2; O2SAT 91–100
[2016-11-28] MEDS: PIPERACILL/TAZOBAC IV 3.375 GM in DEXTROSE 5% 100ML 100 ML IV SCH ×3 (02:18→18:16)
[2016-11-28] MEDS: DiphenhydrAMINE HCL 50 MG/ML VIAL IV SCH ×3 (04:55→20:13)
[2016-11-28] MEDS: METHYLPREDNISOLONE IV 60 MG in SYRINGE 0 ML IV SCH ×2 (04:55→13:29)
[2016-11-28] MEDS: ACETYLCYSTEINE 600 MG CAP PO SCH ×2 (06:00→06:43)
[2016-11-28] MEDS: LEVOTHYROXINE 100 MCG TAB PO SCH ×2 (06:00→06:43)
[2016-11-28] MEDS: RASPBERRY SYRUP 5 ML UDP PO SCH ×4 (07:33→20:13)
[2016-11-28] MEDS: METOPROLOL TARTRATE 50 MG TAB PO SCH ×2 (07:33→20:13)
[2016-11-28] MEDS: MULTIVITAMIN TAB PO SCH (07:33)
[2016-11-28] MEDS: VANCOMYCIN HCL 250 MG/5 ML SOLN PO SCH ×4 (07:33→20:14)
--- NOTE | 2016-11-28 07:38 | DIAGNOSTIC IMAGING REPORT ---
SINGLE VIEW CHEST CLINICAL HISTORY: Dyspnea. FINDINGS: An AP, portable, upright chest radiograph is compared to study dated 11/27/2016 and correlated with chest CT dated 11/25/2016. The examination is degraded by portable technique and patient rotation. The heart is top normal for projection. The pulmonary vasculature is noncongested. Mild emphysema and chronic interstitial thickening is similar to previous. A right upper lobe lung mass is unchanged, as is a right lower lobe lesion. A calcified nodule is again noted in the left lower lobe. There is no airspace consolidation typical for pneumonia or large pleural effusion. No pneumothorax is seen. The skeletal structures are osteopenic. The bony thorax is grossly intact. IMPRESSION: 1. Emphysema with no acute cardiopulmonary abnormality. 2. Right-sided pulmonary masses and a calcified left lower lobe pulmonary nodule are unchanged. Electronically signed by: Jose Luis Dawkins M.D. 11/28/2016 7:37 AM Dictated Date/Time: 11/28/2016 7:36 AM
--- NOTE | 2016-11-28 07:40 | OPERATIVE REPORT ---
DATE OF OPERATION: 11/27/2016 PREOPERATIVE DIAGNOSIS: Right acute limb ischemia. POSTOPERATIVE DIAGNOSIS: Same. PROCEDURE: Ultrasound guided access of R PLASTERER FOREMAN Right lower extremity diagnostic angiogram. Closure of artery with StarClose device. SURGEON: Dr. Jacobo Gallegos. GARMENT SEWING MACHINE OPERATOR: Valeri Browne MD ANESTHESIA: Local. URINE OUTPUT: Not recorded. ESTIMATED BLOOD LOSS: 2 mL. CONTRAST: 25 mL 4 x1.5 minutes mGy is 50. COMPLICATIONS: None apparent. INDICATIONS: Mr. Mario Multani is a 76-year-old male with history of peripheral arterial disease, who presents to the hospital with altered mental status and was incidentally found to have no pulses in his right lower extremity with gangrene of his right great toe and some areas of dry gangrene on his wagner. Due to his altered mental status, his was advised of the risks and benefits of an angiogram and she consented to the procedure. DESCRIPTION OF PROCEDURE: The patient was brought into the operative suite. He was prepped and draped in usual fashion. Timeout occurred. Ultrasound guided right femoral percutaneous access was obtained. Right lower extremity angiogram was obtained. This demonstrated the right common iliac, right external iliac, right internal iliac were patent. The right profunda was patent. The right SFA occluded proximally. Despite multiple pictures shot progressively distally, there was no reconstitution of flow. At this time, the procedure was halted due to the fact that he would not be a candidate for endovascular intervention. A StarClose device was used to close the puncture site. Pressure was held for 5 minutes. Hemostasis was obtained. The patient was then transferred back to his bed and transferred to the PACU in stable condition. Dr. Jacobo Gallegos was present for the entirety of this case. The patient tolerated it well. I attest to the content of the Intraoperative Record and any orders documented therein. Any exceptions are noted below. I, Dr. Gallegos was present and scrubbed for the entire procedure. JAG
--- NOTE | 2016-11-28 07:44 | Progress Note ---
Progress Note Date of Service Nov 28, 2016. Progress Note Patient for AKA of right leg today. I have discussed the risks options and benefits of the procedure with the patient's and Dr Kaur discussed it with his son. They understood the risks options and benefits and agrees to the procedure. I have examined the patient, reviewed the History & Physical and in the interval since the performance of the History & Physical I have noted the following changes of clinical significance: No changes noted
[2016-11-28] MEDS: FAMOTIDINE IV INJ 20 MG in DEXTROSE 5% 100ML 100 ML IV SCH ×2 (08:00→20:13)
[2016-11-28 08:12] LABS: HEMATOCRIT 43.4 % (42-52); MEAN CELL VOLUME 67.5 fL (80-100); MEAN CORPUSCULAR HEMOGLOBIN 21.3 pg (25-34); MEAN CORPUSCULAR HGB CONC 31.6 g/dl (32-36); PLATELET COUNT 922 K/uL (130-400); RED BLOOD COUNT 6.43 M/uL (4.7-6.1); WHITE BLOOD COUNT 29.02 K/uL (4.8-10.8)
[2016-11-28 08:19] LABS: INR 1.5 (0.9-1.1); PROTHROMBIN TIME (PATIENT) 16.5 SECONDS (9.0-12.0)
[2016-11-28] MEDS ORDERED: ONDANSETRON INJ 2 MG/ML 2 ML VIAL ONE (08:39)
[2016-11-28] MEDS ORDERED: MIDAZOLAM HCL 1 MG/ML 2ML VIAL ONE (08:39)
[2016-11-28] MEDS ORDERED: LIDOCAINE HCL 2% 2 ML VIAL (20MG/ML) ONE (08:39)
[2016-11-28] MEDS ORDERED: FENTANYL CITRATE INJ 50 MCG/1 ML 2 ML VIAL ONE ×3 (08:39→10:41)
[2016-11-28] MEDS ORDERED: PROPOFOL IV EMULSION 10 MG/ML 20 ML VIAL IV ONE (08:39)
[2016-11-28] MEDS ORDERED: DEXAMETHASONE SOD INJ 4 MG/ML VIAL ONE (08:39)
[2016-11-28 08:48] LABS: ANISOCYTOSIS PRESENT; BASO % 0.1 %; BASO ABS # 0.02 K/uL (0-0.2); COMPLETE YES; IG% 1.1 %; LYMPH % 2.8 %; MICROCYTOSIS PRESENT; MONO % 3.2 %; NEUT % 92.8 %; OVALOCYTES 1+; POLYCHROMASIA 1+; TOXIC GRANULATION 1+; VACUOLIZATION 1+
[2016-11-28 08:50] LABS: BUN/CREATININE RATIO 18.8 (10-20); CALCIUM 8.5 mg/dl (8.5-10.1); CREATININE 1.6 mg/dl (0.60-1.40); POTASSIUM 3.9 mmol/L (3.5-5.1)
[2016-11-28] MEDS ORDERED: BUPIVACAINE 0.5 % 5 MG/1 ML PF 10ML VIAL ONE (09:14)
--- NOTE | 2016-11-28 09:32 | Pharmacy Progress Note ---
Pharmacy Antibiotic Prog Note Date of Service Nov 28, 2016. Subjective The patient is currently receiving vancomycin 1250 mg IV every 24 hours, and Zosyn 3.375 Gm extended infusion q8h. The patient is currently on day # 5 of vancomycin and Zosyn IV therapy. Objective Height (Feet): 5 Height (Inches): 8.00 Weight (Kilograms): 73.000 Levels: Item Value Date Time Vancomycin Level Trough 14.3 mcg/ml 11/27/162108 Previous dose hung 11/26 @2249. Lab Results (24hrs): Test 11/27/16 20:07 11/27/16 21:09 11/28/16 08:00 11/28/16 08:01 White Blood Count 36.42 K/uL (4.8-10.8) 29.02 K/uL (4.8-10.8) Red Blood Count 6.87 M/uL (4.7-6.1) 6.43 M/uL (4.7-6.1) Hemoglobin 15.3 g/dL (14.0-18.0) 13.7 g/dL (14.0-18.0) Hematocrit 46.5 % (42-52) 43.4 % (42-52) Mean Corpuscular Volume 67.7 fL (80-100) 67.5 fL (80-100) Mean Corpuscular Hemoglobin 22.3 pg (25-34) 21.3 pg (25-34) Mean Corpuscular Hemoglobin Concent 32.9 g/dl (32-36) 31.6 g/dl (32-36) Platelet Count 903 K/uL (130-400) 922 K/uL (130-400) Mean Platelet Volume 9.1 fL (7.4-10.4) 9.0 fL (7.4-10.4) Neutrophils (%) (Auto) 92.3 % 92.8 % Lymphocytes (%) (Auto) 2.4 % 2.8 % Monocytes (%) (Auto) 4.0 % 3.2 % Eosinophils (%) (Auto) 0.0 % 0.0 % Basophils (%) (Auto) 0.1 % 0.1 % Neutrophils # (Auto) 33.60 K/uL (1.4-6.5) 26.94 K/uL (1.4-6.5) Lymphocytes # (Auto) 0.89 K/uL (1.2-3.4) 0.80 K/uL (1.2-3.4) Monocytes # (Auto) 1.45 K/uL (0.11-0.59) 0.94 K/uL (0.11-0.59) Eosinophils # (Auto) 0.00 K/uL (0-0.5) 0.00 K/uL (0-0.5) Basophils # (Auto) 0.04 K/uL (0-0.2) 0.02 K/uL (0-0.2) RDW Standard Deviation 46.7 fL (36.4-46.3) 46.7 fL (36.4-46.3) RDW Coefficient of Variation 20.0 % (11.5-14.5) 19.9 % (11.5-14.5) Immature Granulocyte % (Auto) 1.2 % 1.1 % Immature Granulocyte # (Auto) 0.44 K/uL (0.00-0.02) 0.32 K/uL (0.00-0.02) Nucleated RBC Absolute Count (auto) 0.08 K/uL (0-0) Nucleated Red Blood Cells % 0.2 % Polychromasia 1+ 1+ Microcytosis PRESENT PRESENT Sodium Level 139 mmol/L (136-145) 141 mmol/L (136-145) Potassium Level 4.4 mmol/L (3.5-5.1) 3.9 mmol/L (3.5-5.1) Chloride Level 110 mmol/L (98-107) 112 mmol/L (98-107) Carbon Dioxide Level 19 mmol/L (21-32) 20 mmol/L (21-32) Anion Gap 10.0 mmol/L (3-11) 9.0 mmol/L (3-11) Blood Urea Nitrogen 28 mg/dl (7-18) 30 mg/dl (7-18) Creatinine 1.70 mg/dl (0.60-1.40) 1.60 mg/dl (0.60-1.40) Est Creatinine Clear Calc Drug Dose 36.3 ml/min 38.6 ml/min Estimated GFR () 44.7 48.1 Estimated GFR (Non- 38.6 41.5 BUN/Creatinine Ratio 16.5 (10-20) 18.8 (10-20) Random Glucose 120 mg/dl (70-99) 116 mg/dl (70-99) Calcium Level 8.8 mg/dl (8.5-10.1) 8.5 mg/dl (8.5-10.1) Total Bilirubin 0.6 mg/dl (0.2-1) Aspartate Amino Transf (AST/SGOT) 48 U/L (15-37) Alanine Aminotransferase (ALT/SGPT) 51 U/L (12-78) Alkaline Phosphatase 82 U/L (45-117) Total Protein 6.2 gm/dl (6.4-8.2) Albumin 2.8 gm/dl (3.4-5.0) Globulin 3.4 gm/dl (2.5-4.0) Albumin/Globulin Ratio 0.8 (0.9-2) Chemistry Specimen Hemolysis Lactic Acid Level 1.7 mmol/L (0.4-2.0) 1.1 mmol/L (0.4-2.0) Vancomycin Level Trough 14.3 mcg/ml (SEE COMMENT) Toxic Granulation 1+ Toxic Vacuolation 1+ Anisocytosis PRESENT Ovalocytes 1+ Prothrombin Time 16.5 SECONDS (9.0-12.0) Prothromb Time International Ratio 1.5 (0.9-1.1) Micro Results: 11/24 blood x2 NGTD 11/27 blood x2 pending 11/27 stool (+) C. diff. Recent Pertinent Medications Item Value Date Time Vancomycin HCl 250 mg 11/27/162214 (Vancomycin Oral QID/PO Soln) Vancomycin HCl 275 ml @ 125 mls/hr 11/25/16 2200 1250 mg/Sodium DAILY@2200/IV 11/27/16 2230 Chloride Piperacillin Sod/ 115 ml @ 28.75 mls/hr 11/24/16 1800 Tazobactam Sod Q8H/IV 11/28/16 0218 3.375 gm/Dextrose Assessment & Plan This drug level is: slightly Subtherapeutic. However, patient is scheduled for R above knee amputation today, and dose should be adequate for the decreased body weight. Continue vancomycin 1250 mg IV every 24 hours. Goal trough level estimate: between 15-20 mcg/mL. Trough has been ordered for: 11/30/16 before 2200 dose. Continue Zosyn 3.375 Gm (infused over 4 hr) every 8 hours, for CrCl greater than 20 ml/min. Pharmacy will continue to follow and will adjust dose/frequency as necessary. Thank you
[2016-11-28] MEDS ORDERED: ATROPINE SULFATE 0.1 MG/ML 5ML SYR IV PRN (10:45)
[2016-11-28] MEDS ORDERED: HYDROmorphone INJ 1 MG/ML SYR IV PRN (10:45)
[2016-11-28] MEDS ORDERED: LABETALOL HCL IV 5 MG/ML 20ML IV PRN (10:45)
[2016-11-28] MEDS ORDERED: PROMETHAZINE HCL INJ 12.5 MG in SODIUM CHLORIDE 0.9% 50ML 50 ML IV PRN (10:45)
[2016-11-28] MEDS ORDERED: FLUMAZENIL 0.1 MG/1 ML 10 ML VIAL IV PRN (10:45)
[2016-11-28] MEDS ORDERED: NALOXONE HCL 0.4 MG/1 ML VIAL/CARP IV PRN (10:45)
[2016-11-28] MEDS ORDERED: EpHEDrine SULFATE INJ 50 MG/ML AMP IV PRN (10:45)
[2016-11-28] MEDS ORDERED: ONDANSETRON INJ 2 MG/ML 2 ML VIAL IV PRN (10:45)
--- NOTE | 2016-11-28 10:46 | Nephrology Progress Note ---
Nephrology Progress Note Date of Service Nov 28, 2016. Chief Complaint F/U for acute kidney injury Subjective Zac was not in his room this am, he left for OR for amputation. Labs and vitals were reviewed. BP volume status and electrolyte stable. Review of Systems A complete review of systems was performed. Pertinent positives are noted above. All other systems are negative. 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) Laboratory Results Past 24 Hours 11/27/16 20:07 Red Blood Count 6.87, Mean Corpuscular Volume 67.7, Mean Corpuscular Hemoglobin 22.3, Mean Corpuscular Hemoglobin Concent 32.9, Mean Platelet Volume 9.1, Neutrophils (%) (Auto) 92.3, Lymphocytes (%) (Auto) 2.4, Monocytes (%) (Auto) 4.0, Eosinophils (%) (Auto) 0.0, Basophils (%) (Auto) 0.1, Neutrophils # (Auto) 33.60, Lymphocytes # (Auto) 0.89, Monocytes # (Auto) 1.45, Eosinophils # (Auto) 0.00, Basophils # (Auto) 0.04 11/27/16 20:07 Test 11/27/16 20:07 11/27/16 21:09 11/28/16 04:44 11/28/16 06:00 White Blood Count 36.42 K/uL (4.8-10.8) Red Blood Count 6.87 M/uL (4.7-6.1) Hemoglobin 15.3 g/dL (14.0-18.0) Hematocrit 46.5 % (42-52) Mean Corpuscular Volume 67.7 fL (80-100) Mean Corpuscular Hemoglobin 22.3 pg (25-34) Mean Corpuscular Hemoglobin Concent 32.9 g/dl (32-36) Platelet Count 903 K/uL (130-400) Mean Platelet Volume 9.1 fL (7.4-10.4) Neutrophils (%) (Auto) 92.3 % Lymphocytes (%) (Auto) 2.4 % Monocytes (%) (Auto) 4.0 % Eosinophils (%) (Auto) 0.0 % Basophils (%) (Auto) 0.1 % Neutrophils # (Auto) 33.60 K/uL (1.4-6.5) Lymphocytes # (Auto) 0.89 K/uL (1.2-3.4) Monocytes # (Auto) 1.45 K/uL (0.11-0.59) Eosinophils # (Auto) 0.00 K/uL (0-0.5) Basophils # (Auto) 0.04 K/uL (0-0.2) RDW Standard Deviation 46.7 fL (36.4-46.3) RDW Coefficient of Variation 20.0 % (11.5-14.5) Immature Granulocyte % (Auto) 1.2 % Immature Granulocyte # (Auto) 0.44 K/uL (0.00-0.02) Nucleated RBC Absolute Count (auto) 0.08 K/uL (0-0) Nucleated Red Blood Cells % 0.2 % Polychromasia 1+ Microcytosis PRESENT Anion Gap 10.0 mmol/L (3-11) Est Creatinine Clear Calc Drug Dose 36.3 ml/min Estimated GFR () 44.7 Estimated GFR (Non- 38.6 BUN/Creatinine Ratio 16.5 (10-20) Calcium Level 8.8 mg/dl (8.5-10.1) Total Bilirubin 0.6 mg/dl (0.2-1) Aspartate Amino Transf (AST/SGOT) 48 U/L (15-37) Alanine Aminotransferase (ALT/SGPT) 51 U/L (12-78) Alkaline Phosphatase 82 U/L (45-117) Total Protein 6.2 gm/dl (6.4-8.2) Albumin 2.8 gm/dl (3.4-5.0) Globulin 3.4 gm/dl (2.5-4.0) Albumin/Globulin Ratio 0.8 (0.9-2) Chemistry Specimen Hemolysis Lactic Acid Level 1.7 mmol/L (0.4-2.0) Vancomycin Level Trough 14.3 mcg/ml (SEE COMMENT) Date/Time Source Procedure Growth Status 11/27/16 20:00 Stool C.difficile Toxin B Gene (PCR) - Final Positive for C. difficile toxin B gene Complete Allergies Coded Allergies: Iodinated Diagnostic Agents (Unverified Allergy, Unknown, ., 11/24/16) Medications Current Inpatient Medications Medications (Trade) Dose Ordered Sig/Greg Route Start Time Stop Time Status Last Admin Dose Admin Heparin Sodium (Porcine) (Heparin Sq 5000 Unit/0.5ml) 5,000 unit Q8 SQ 11/24/16 22:00 12/24/16 21:59 Future Hold 11/27/16 06:17 5,000 UNIT Acetaminophen (Tylenol Tab) 650 mg Q4H PRN PO 11/24/16 15:15 12/24/16 15:14 11/25/16 14:39 650 MG Ondansetron HCl (Zofran Inj) 4 mg Q6H PRN IV 11/24/16 15:15 12/24/16 15:14 Vancomycin HCl (Consult) 1 ea UD PRN N/A 11/24/16 15:10 12/24/16 15:09 Piperacillin Sod/ Tazobactam Sod (Consult) 1 ea UD PRN N/A 11/24/16 15:11 12/24/16 15:10 Levothyroxine Sodium (Synthroid Tab) 100 mcg DAILYBB PO 11/25/16 06:00 12/25/16 06:59 11/27/16 06:14 100 MCG Multivitamins (Multivitamin Tab) 1 tab DAILY PO 11/25/16 09:00 12/25/16 08:59 11/27/16 09:17 1 TAB Piperacillin Sod/ Tazobactam Sod 3.375 gm/Dextrose 115 ml @ 28.75 mls/ hr Q8H IV 11/24/16 18:00 12/04/16 09:59 11/28/16 02:18 28.75 MLS/HR Vancomycin HCl 1250 mg/Sodium Chloride 275 ml @ 125 mls/hr DAILY@2200 IV 11/25/16 22:00 12/04/16 12:59 11/27/16 22:30 125 MLS/HR Haloperidol Lactate (Haldol Inj) 5 mg Q6 PRN IM 11/25/16 17:45 12/25/16 17:44 11/27/16 17:48 5 MG Metoprolol Tartrate (Lopressor Iv) 5 mg Q6 PRN IV 11/25/16 20:00 12/25/16 19:59 11/26/16 05:21 5 MG Gadobutrol (Gadavist) 6 mmol UD PRN IV 11/26/16 22:30 11/30/16 22:29 Metoprolol Tartrate (Lopressor Tab) 50 mg BID PO 11/27/16 09:00 12/26/16 20:59 11/27/16 20:10 50 MG Risperidone (Risperdal M Tab) 0.5 mg Q6 PRN PO 11/27/16 19:45 12/27/16 19:44 11/27/16 21:59 0.5 MG Methylprednisolone Sodium Succinate 60 mg/Syringe 0.96 ml @ 1.5 mls/min Q8H IV 11/27/16 20:00 12/27/16 19:59 11/28/16 04:55 1.5 MLS/MIN Famotidine 20 mg/ Dextrose 102 ml @ 200 mls/hr Q12H IV 11/27/16 20:00 12/27/16 19:59 11/27/16 20:09 200 MLS/HR Sodium Chloride 1,000 ml @ 100 mls/hr Q10H IV 11/27/16 19:45 12/27/16 19:44 11/27/16 20:01 100 MLS/HR Diphenhydramine HCl (Benadryl Inj) 12.5 mg Q8H IV 11/28/16 04:00 12/28/16 03:59 11/28/16 04:55 12.5 MG Vancomycin HCl (Vancomycin Oral Soln) 250 mg QID PO 11/27/16 22:15 12/07/16 22:14 11/27/16 23:31 250 MG Raspberry (Raspberry Syrup 5ml Cup) 5 ml QID PO 11/27/16 22:15 12/11/16 22:14 11/27/16 23:32 5 ML Impression 76-year-old gentlemen with history of peripheral vascular disease, hypertension , status post left AKA, history of small cell lung cancer treated with radiation therapy before,new finding of metastatic disease, admitted to the hospital with right lower extremity cellulitis and ischemia. Doppler showing superficial femoral artery stenosis, now getting evaluated for angiogram. Vascular surgery and Orthopedic consulted for for possible need for revascularization. Found to have acute kidney injury on admission with no prior history of chronic kidney disease. Acute kidney injury seems to be hemodynamically mediated, Cr was 2.5 on admission, has been improving and 1.6 this am with IV hydration and improvement in blood pressure. Record review shows that creatinine was 1.7 approximately 2-3 weeks ago. Although patient is not aware of any history of chronic kidney disease, with patient's history of significant peripheral vascular disease, hypertension and longstanding history of smoking, it is quite possible that patient have some underlying renal insufficiency secondary to chronic ischemic nephropathy with microvascular disease and creatinine of 1.7 from 2-3 weeks ago could be his baseline. UA unremarkable. Seen by pulmonology for metastatic lung cancer, no brain Mets on MRI, will follow with Pulmonary as an outpatient, will need Oncology follow-up as well. Recommendations --renal function stable, creatinine 1.6-1.8, seems to be his b/l, electrolyte and volume status acceptable, will monitor with daily renal panel, while pt is getting AKA --continue metoprolol to 50 twice a day --agree with holding losartan and Lasix for now --avoid nephrotoxic medications --will need to address metastatic lung ca once stable after surgery, possibly oncology referral as outpt. will follow
--- NOTE | 2016-11-28 11:15 | [facility] Post Operative Brief Note ---
Immediate Operative Summary Operative Date Nov 28, 2016. Pre-Operative Diagnosis Ischemic Right Leg Post-Operative Diagnosis Ischemic Right Leg Procedure(s) Performed Right Above the knee Amputation Surgeon Dr. Jacobo Gallegos [employer] Driver Surgeon(s) Apoorva Henriquez PA-c Estimated Blood Loss 100 ml Findings viable thigh muscle Specimens Permanent Specimen A: Right lower leg B: Partial femur bone right Anesthesia Gen Complication(s) None Disposition Recovery Room / PACU
--- NOTE | 2016-11-28 11:50 | OPERATIVE REPORT ---
DATE OF OPERATION: 11/28/2016 PREOPERATIVE DIAGNOSIS: Ischemic right leg. POSTOPERATIVE DIAGNOSIS: Same. PROCEDURE: Right above knee amputation. SURGEON: Dr. Gallegos. TRAVEL RN: Apoorva Henriquez PA-C. ANESTHETIC: General with femoral block. PROCEDURE INDICATIONS: The patient is a 76-year-old gentleman with a severely ischemic right lower extremity. He has nonrevascularizable. He had arteriography yesterday. Amputation was recommended. He understood the risks, options and benefits and agreed to go ahead with this procedure. He is confused however so his and son both agreed, his signed the consent. The patient was taken to the operating room and placed in supine position. After right leg was prepped and draped in a sterile manner a fish mouth incision was made in the distal thigh. This was carried down to the femur. Periosteal elevator was used to raise the periosteum. A Gigli saw was then used and the bone was transected. The posterior flap was then made using the amputation knife. Bleeding was controlled with free ties. It was decided to take the bone up slightly higher to get a better approximation of the edges. The bone was taken up another 5 cm. This was done with the power saw. Once this was done, adequate hemostasis was then noted. The wound was then closed with interrupted 3-0 Vicryls for the posterior and anterior fascia approximation. We then used aayush in the skin. Sterile dressings were applied to the wound. The patient left the operating room in satisfactory condition and tolerated the procedure well. Apoorva Henriquez Pac assisted due to lack of resident availability and was necessary for prepping, draping, retraction, wound closure defects, subQ and skin closure and was necessary for the case. I attest to the content of the Intraoperative Record and any orders documented therein. Any exceptions are noted below. KIRSTEND
--- NOTE | 2016-11-28 12:08 | Anesthesiology Progress Note ---
Anesthesia Post Op Note Date & Time Nov 28, 2016 at 12:07 Vital Signs Pain Intensity: 0 Vital Signs Past 12 Hours Date Time Temp Pulse Resp B/P (MAP) Pulse Ox O2 Delivery O2 Flow Rate FiO2 11/28/16 11:55 72 17 167/76 97 Nasal Cannula 2 11/28/16 11:45 69 22 164/78 100 Mask 10 11/28/16 11:35 75 18 174/73 100 Mask 10 11/28/16 11:31 36.3 74 16 173/80 100 Mask 10 11/28/16 08:00 Room Air 11/28/16 07:20 37.1 66 19 119/54 (75) 93 Room Air 11/28/16 04:00 Room Air 11/28/16 03:52 37.2 69 20 112/59 (76) 93 Room Air Notes Mental Status: alert / awake / arousable, participated in evaluation Pt Amnestic to Procedure: Yes Nausea / Vomiting: adequately controlled Pain: adequately controlled Airway Patency, RR, SpO2: stable & adequate BP & HR: stable & adequate Hydration State: stable & adequate Anesthetic Complications: no major complications apparent Anesthesia for the patient was done by Dr. Medel. In the PACU, the patient is awake, comfortable, and hemodynamically stable. He will go to the ICU. I spoke to the ICU physician and he is aware of the patient and will follow him in the ICU.
[2016-11-28] MEDS: SODIUM CHLORIDE 0.9% 1000ML 1,000 ML IV SCH ×2 (13:29→20:12)
--- NOTE | 2016-11-28 14:06 | Critical Care Consultation ---
Critical Care Consultation Date of Consultation: Nov 28, 2016. Attending Physician: Kristie Kaur M.D. Reason for Consultation: post op AKA with significant comorbidity. History of Present Illness Dear Dr. Kaur: Thank you for your kind referral of Mr. Multani to ICU service. this is 76 yo male with significant PMHx including PAD , s/p right AKA, hx of squamous cell lung CA with Mets , s/p SBRT to the right lung with two lesions in the RUL and RLL as well. hx of COPD, A fib rate controlled. presented to the hospital with ischemic RLL, the pt underwent contrast ct with possible reaction and treated with steroids and H1 H2 blockers. the RLL was found to have no flow below the superficial femoral distribution, evaluated by Dr. Duncan and went to the OR for AKA on the Right. post op the pt did well and transferred to the ICu for further monitoring. the pt denies pain, only minimal discomfort, no sob, no cough or chest pain, no itching heartburn or NV, no diarrhea. VSS with elevated BP, no dizziness , otherwise the rest of his ROS was unremarkable. 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 Miscellaneous Medications Testosterone Enanthate (Testosterone Enanthate) Current Inpatient Medications Current Inpatient Medications Medications (Trade) Dose Ordered Sig/Greg Route Start Time Stop Time Status Last Admin Dose Admin Heparin Sodium (Porcine) (Heparin Sq 5000 Unit/0.5ml) 5,000 unit Q8 SQ 11/24/16 22:00 12/24/16 21:59 Future Hold 11/27/16 06:17 5,000 UNIT Acetaminophen (Tylenol Tab) 650 mg Q4H PRN PO 11/24/16 15:15 12/24/16 15:14 11/25/16 14:39 650 MG Ondansetron HCl (Zofran Inj) 4 mg Q6H PRN IV 11/24/16 15:15 12/24/16 15:14 Vancomycin HCl (Consult) 1 ea UD PRN N/A 11/24/16 15:10 12/24/16 15:09 Piperacillin Sod/ Tazobactam Sod (Consult) 1 ea UD PRN N/A 11/24/16 15:11 12/24/16 15:10 Levothyroxine Sodium (Synthroid Tab) 100 mcg DAILYBB PO 11/25/16 06:00 12/25/16 06:59 11/27/16 06:14 100 MCG Multivitamins (Multivitamin Tab) 1 tab DAILY PO 11/25/16 09:00 12/25/16 08:59 11/27/16 09:17 1 TAB Piperacillin Sod/ Tazobactam Sod 3.375 gm/Dextrose 115 ml @ 28.75 mls/ hr Q8H IV 11/24/16 18:00 12/04/16 09:59 11/28/16 02:18 28.75 MLS/HR Vancomycin HCl 1250 mg/Sodium Chloride 275 ml @ 125 mls/hr DAILY@2200 IV 11/25/16 22:00 12/04/16 12:59 11/27/16 22:30 125 MLS/HR Haloperidol Lactate (Haldol Inj) 5 mg Q6 PRN IM 11/25/16 17:45 12/25/16 17:44 11/27/16 17:48 5 MG Metoprolol Tartrate (Lopressor Iv) 5 mg Q6 PRN IV 11/25/16 20:00 12/25/16 19:59 11/26/16 05:21 5 MG Gadobutrol (Gadavist) 6 mmol UD PRN IV 11/26/16 22:30 11/30/16 22:29 Metoprolol Tartrate (Lopressor Tab) 50 mg BID PO 11/27/16 09:00 12/26/16 20:59 11/27/16 20:10 50 MG Risperidone (Risperdal M Tab) 0.5 mg Q6 PRN PO 11/27/16 19:45 12/27/16 19:44 11/27/16 21:59 0.5 MG Methylprednisolone Sodium Succinate 60 mg/Syringe 0.96 ml @ 1.5 mls/min Q8H IV 11/27/16 20:00 12/27/16 19:59 11/28/16 13:29 1.5 MLS/MIN Famotidine 20 mg/ Dextrose 102 ml @ 200 mls/hr Q12H IV 11/27/16 20:00 12/27/16 19:59 11/27/16 20:09 200 MLS/HR Sodium Chloride 1,000 ml @ 100 mls/hr Q10H IV 11/27/16 19:45 12/27/16 19:44 11/28/16 13:29 100 MLS/HR Diphenhydramine HCl (Benadryl Inj) 12.5 mg Q8H IV 11/28/16 04:00 12/28/16 03:59 11/28/16 13:30 12.5 MG Vancomycin HCl (Vancomycin Oral Soln) 250 mg QID PO 11/27/16 22:15 12/07/16 22:14 11/28/16 13:45 250 MG Raspberry (Raspberry Syrup 5ml Cup) 5 ml QID PO 11/27/16 22:15 12/11/16 22:14 11/28/16 13:45 5 ML Hydromorphone HCl (Dilaudid Inj) 0.25 mg Q5M PRN IV 11/28/16 10:45 11/28/16 15:45 Naloxone HCl (Narcan Inj) 0.2 mg Q2M PRN IV 11/28/16 10:45 11/28/16 15:45 Flumazenil (Romazicon Inj) 0.2 mg Q2M PRN IV 11/28/16 10:45 11/28/16 15:45 Ondansetron HCl (Zofran Inj) 4 mg ONE PRN IV 11/28/16 10:45 11/28/16 15:45 Promethazine HCl 12.5 mg/Sodium Chloride 50.5 ml @ 202 mls/hr ONE PRN IV 11/28/16 10:45 11/28/16 15:45 Labetalol HCl (Normodyne IV) 5 mg Q5M PRN IV 11/28/16 10:45 11/28/16 15:45 Ephedrine Sulfate (EpHEDrine SULFATE INJ) 5 mg Q5M PRN IV 11/28/16 10:45 11/28/16 15:45 Atropine Sulfate (Atropine Sulfate 0.1MG/Ml Inj) 0.5 mg Q1M PRN IV 11/28/16 10:45 11/28/16 15:45 Oxycodone/ Acetaminophen (Percocet 5-325mg Tab) 1 tab Q4H PRN PO 11/28/16 11:15 12/12/16 11:14 Review of Systems Constitutional: No fever, No chills, No sweats, No weight loss, No weakness, No fatigue, No problem reported ENT: No hearing loss, No unusual epistaxis, No nasal symptoms, No sore throat, No tinnitus, No dental problems, No trouble swallowing, No problem reported Respiratory: No cough, No sputum, No wheezing, No shortness of breath, No dyspnea on exertion, No dyspnea at rest, No hemoptysis, No problem reported Cardiovascular: No chest pain, No orthopnea, No PND, No edema, No claudication , No palpitations, No problem reported Abdomen: No pain, No nausea, No vomiting, No diarrhea, No constipation, No GI bleeding, No problem reported Musculoskeletal: + muscle pain Neurologic: No memory loss, No paralysis, No weakness, No numbness/tingling, No vertigo, No balance problems, No problem reported Psychiatric: No depression symptoms, No anhedonism, No anxiety, No insomnia, No substance abuse, No problem reported Allergic / Immunologic: No environmental allergies, No seasonal allergies, No pet sensitivities, No food allergies, No hives, No frequent infections, No poor healing, No prolonged convalescence, No problem reported Physical Exam Date Time Temp Pulse Resp B/P (MAP) Pulse Ox O2 Delivery O2 Flow Rate FiO2 11/28/16 12:45 72 18 171/85 98 Nasal Cannula 2 11/28/16 12:30 73 20 168/80 98 Nasal Cannula 2 11/28/16 12:15 74 14 179/82 96 Nasal Cannula 2 11/28/16 12:05 36.7 72 16 171/72 96 Nasal Cannula 2 11/28/16 11:55 72 17 167/76 97 Nasal Cannula 2 11/28/16 11:45 69 22 164/78 100 Mask 10 11/28/16 11:35 75 18 174/73 100 Mask 10 11/28/16 11:31 36.3 74 16 173/80 100 Mask 10 11/28/16 08:00 Room Air 11/28/16 07:20 37.1 66 19 119/54 (75) 93 Room Air 11/28/16 04:00 Room Air 11/28/16 03:52 37.2 69 20 112/59 (76) 93 Room Air 11/27/16 23:59 Room Air 11/27/16 22:53 36.6 69 20 135/67 (89) 96 Room Air 11/27/16 20:00 Room Air 11/27/16 19:29 36.7 70 18 126/67 (86) 94 Room Air 11/27/16 18:30 36.7 71 20 132/81 (98) 93 Room Air 11/27/16 18:15 84 20 157/84 (108) 89 Room Air 11/27/16 18:00 69 20 150/65 (93) 96 11/27/16 17:26 70 20 169/82 (111) 94 11/27/16 17:11 72 20 155/83 (107) 97 Room Air 11/27/16 17:00 37.1 73 20 150/82 (104) 96 Room Air 11/27/16 16:00 Room Air 11/27/16 14:14 37.1 62 18 167/85 96 Room Air General Appearance: no apparent distress Head: normocephalic Eyes: PERRLA, no discharge, EOMI ENT: normal mouth exam Neck: trachea midline, no stridor Respiratory: breath sounds normal, clear to auscultation, clear to percussion Cardiovasular: regular rate/rhythm, normal S1S2, no M/G/R, no JVD Abdomen: non tender, normal bowel sounds Upper Extremities: no edema, other Lower Extremities: other Neuro: alert, oriented x 3, normal motor exam Psychiatric: normal affect Laboratory Results Last 24 Hours Test 11/27/16 20:07 11/27/16 21:09 11/28/16 08:00 11/28/16 08:01 White Blood Count 36.42 K/uL 29.02 K/uL Red Blood Count 6.87 M/uL 6.43 M/uL Hemoglobin 15.3 g/dL 13.7 g/dL Hematocrit 46.5 % 43.4 % Mean Corpuscular Volume 67.7 fL 67.5 fL Mean Corpuscular Hemoglobin 22.3 pg 21.3 pg Mean Corpuscular Hemoglobin Concent 32.9 g/dl 31.6 g/dl Platelet Count 903 K/uL 922 K/uL Mean Platelet Volume 9.1 fL 9.0 fL Neutrophils (%) (Auto) 92.3 % 92.8 % Lymphocytes (%) (Auto) 2.4 % 2.8 % Monocytes (%) (Auto) 4.0 % 3.2 % Eosinophils (%) (Auto) 0.0 % 0.0 % Basophils (%) (Auto) 0.1 % 0.1 % Neutrophils # (Auto) 33.60 K/uL 26.94 K/uL Lymphocytes # (Auto) 0.89 K/uL 0.80 K/uL Monocytes # (Auto) 1.45 K/uL 0.94 K/uL Eosinophils # (Auto) 0.00 K/uL 0.00 K/uL Basophils # (Auto) 0.04 K/uL 0.02 K/uL RDW Standard Deviation 46.7 fL 46.7 fL RDW Coefficient of Variation 20.0 % 19.9 % Immature Granulocyte % (Auto) 1.2 % 1.1 % Immature Granulocyte # (Auto) 0.44 K/uL 0.32 K/uL Nucleated RBC Absolute Count (auto) 0.08 K/uL Nucleated Red Blood Cells % 0.2 % Polychromasia 1+ 1+ Microcytosis PRESENT PRESENT Sodium Level 139 mmol/L 141 mmol/L Potassium Level 4.4 mmol/L 3.9 mmol/L Chloride Level 110 mmol/L 112 mmol/L Carbon Dioxide Level 19 mmol/L 20 mmol/L Anion Gap 10.0 mmol/L 9.0 mmol/L Blood Urea Nitrogen 28 mg/dl 30 mg/dl Creatinine 1.70 mg/dl 1.60 mg/dl Est Creatinine Clear Calc Drug Dose 36.3 ml/min 38.6 ml/min Estimated GFR () 44.7 48.1 Estimated GFR (Non- 38.6 41.5 BUN/Creatinine Ratio 16.5 18.8 Random Glucose 120 mg/dl 116 mg/dl Calcium Level 8.8 mg/dl 8.5 mg/dl Total Bilirubin 0.6 mg/dl Aspartate Amino Transf (AST/SGOT) 48 U/L Alanine Aminotransferase (ALT/SGPT) 51 U/L Alkaline Phosphatase 82 U/L Total Protein 6.2 gm/dl Albumin 2.8 gm/dl Globulin 3.4 gm/dl Albumin/Globulin Ratio 0.8 Chemistry Specimen Hemolysis Lactic Acid Level 1.7 mmol/L 1.1 mmol/L Vancomycin Level Trough 14.3 mcg/ml Toxic Granulation 1+ Toxic Vacuolation 1+ Anisocytosis PRESENT Ovalocytes 1+ Prothrombin Time 16.5 SECONDS Prothromb Time International Ratio 1.5 Test 11/28/16 13:[address] chest and CXR reviewed personally showing spiculated RUl lesion with RLL lesion both are well known from before. Assessment & Plan 1- PAD, post op day 0 , AKA right sided. also, hx of AKA on the left. 2- Iv contrast reaction treated with steroids. and H1H2 blockers. 3- a fib , paroxysmal, rate controlled. 4- COPD. 5- Squamous cell lung CA stage IV. s/p SBRT to the right. 6- HTn. 7- confusion , resolved possibly related to the drug reaction. 8- c diff positive without diarrhea. 9- SIRS thought to be related to infectious process kept on vanco and zosyn. Plan: 1- monitor in ICU. 2- continue current treatment. 3- may stop steroids of minimize the treatment to 5 days only using oral prednisone. 4- continue IVF, H1H2 blockers. 5- appreciate all Dr's input. 6- dc A line. 7- DNR. 8- oral intake. 9- DVT prophylaxis. 10- dc ABx, especially with positive c diff.
--- NOTE | 2016-11-28 14:09 | Progress Note ---
Progress Note Date of Service Nov 28, 2016. Progress Note I assisted Dr Gallegos with Mario Rangel's Right Above the knee Amputation on 11/28, d/t lack of resident availability.
[2016-11-28] MEDS: OXYCODONE/ACETAMINOPHEN 5-325 TAB PO PRN (14:32)
--- NOTE | 2016-11-28 17:36 | Infectious Disease Progress Nt ---
Progress Note Date of Service Nov 28, 2016. Subjective Pt evaluation today including: conversation w/ patient, physical exam, chart review, lab review, review of studies, conversation w/ solution consultant, review of inpatient medication list Patient is status post [id number] amputation. Hemodynamically he is stable postop, remains afebrile. Offers no new specific complaints. All Other Systems: Reviewed and Negative Medications Current Inpatient Medications Medications (Trade) Dose Ordered Sig/Greg Route Start Time Stop Time Status Last Admin Dose Admin Heparin Sodium (Porcine) (Heparin Sq 5000 Unit/0.5ml) 5,000 unit Q8 SQ 11/24/16 22:00 12/24/16 21:59 Future Hold 11/27/16 06:17 5,000 UNIT Acetaminophen (Tylenol Tab) 650 mg Q4H PRN PO 11/24/16 15:15 12/24/16 15:14 11/25/16 14:39 650 MG Ondansetron HCl (Zofran Inj) 4 mg Q6H PRN IV 11/24/16 15:15 12/24/16 15:14 Vancomycin HCl (Consult) 1 ea UD PRN N/A 11/24/16 15:10 12/24/16 15:09 Piperacillin Sod/ Tazobactam Sod (Consult) 1 ea UD PRN N/A 11/24/16 15:11 12/24/16 15:10 Levothyroxine Sodium (Synthroid Tab) 100 mcg DAILYBB PO 11/25/16 06:00 12/25/16 06:59 11/27/16 06:14 100 MCG Multivitamins (Multivitamin Tab) 1 tab DAILY PO 11/25/16 09:00 12/25/16 08:59 11/27/16 09:17 1 TAB Piperacillin Sod/ Tazobactam Sod 3.375 gm/Dextrose 115 ml @ 28.75 mls/ hr Q8H IV 11/24/16 18:00 12/04/16 09:59 11/28/16 02:18 28.75 MLS/HR Vancomycin HCl 1250 mg/Sodium Chloride 275 ml @ 125 mls/hr DAILY@2200 IV 11/25/16 22:00 12/04/16 12:59 11/27/16 22:30 125 MLS/HR Haloperidol Lactate (Haldol Inj) 5 mg Q6 PRN IM 11/25/16 17:45 12/25/16 17:44 11/27/16 17:48 5 MG Metoprolol Tartrate (Lopressor Iv) 5 mg Q6 PRN IV 11/25/16 20:00 12/25/16 19:59 11/26/16 05:21 5 MG Gadobutrol (Gadavist) 6 mmol UD PRN IV 11/26/16 22:30 11/30/16 22:29 Metoprolol Tartrate (Lopressor Tab) 50 mg BID PO 11/27/16 09:00 12/26/16 20:59 11/27/16 20:10 50 MG Risperidone (Risperdal M Tab) 0.5 mg Q6 PRN PO 11/27/16 19:45 12/27/16 19:44 11/27/16 21:59 0.5 MG Methylprednisolone Sodium Succinate 60 mg/Syringe 0.96 ml @ 1.5 mls/min Q8H IV 11/27/16 20:00 12/27/16 19:59 11/28/16 13:29 1.5 MLS/MIN Famotidine 20 mg/ Dextrose 102 ml @ 200 mls/hr Q12H IV 11/27/16 20:00 12/27/16 19:59 11/27/16 20:09 200 MLS/HR Sodium Chloride 1,000 ml @ 100 mls/hr Q10H IV 11/27/16 19:45 12/27/16 19:44 11/28/16 13:29 100 MLS/HR Diphenhydramine HCl (Benadryl Inj) 12.5 mg Q8H IV 11/28/16 04:00 12/28/16 03:59 11/28/16 13:30 12.5 MG Vancomycin HCl (Vancomycin Oral Soln) 250 mg QID PO 11/27/16 22:15 12/07/16 22:14 11/28/16 17:10 250 MG Raspberry (Raspberry Syrup 5ml Cup) 5 ml QID PO 11/27/16 22:15 12/11/16 22:14 11/28/16 17:10 5 ML Oxycodone/ Acetaminophen (Percocet 5-325mg Tab) 1 tab Q4H PRN PO 11/28/16 11:15 12/12/16 11:14 11/28/16 14:32 1 TAB Objective Vital Signs Date Time Temp Pulse Resp B/P (MAP) Pulse Ox O2 Delivery O2 Flow Rate FiO2 11/28/16 17:02 81 21 163/75 (104) 91 Room Air 11/28/16 16:02 84 22 159/94 (115) 95 Room Air 11/28/16 16:00 Room Air 11/28/16 15:01 87 23 159/104 (122) 96 Room Air 11/28/16 14:01 73 21 172/81 (111) 99 Nasal Cannula 2.0 11/28/16 13:17 75 20 178/87 (117) 96 Nasal Cannula 2.0 11/28/16 13:06 36.6 71 18 178/87 (117) 98 Nasal Cannula 2.0 11/28/16 12:45 72 18 171/85 98 Nasal Cannula 2 11/28/16 12:30 73 20 168/80 98 Nasal Cannula 2 11/28/16 12:15 74 14 179/82 96 Nasal Cannula 2 11/28/16 12:05 36.7 72 16 171/72 96 Nasal Cannula 2 11/28/16 11:55 72 17 167/76 97 Nasal Cannula 2 11/28/16 11:45 69 22 164/78 100 Mask 10 11/28/16 11:35 75 18 174/73 100 Mask 10 11/28/16 11:31 36.3 74 16 173/80 100 Mask 10 11/28/16 08:00 Room Air 11/28/16 07:20 37.1 66 19 119/54 (75) 93 Room Air 11/28/16 04:00 Room Air 11/28/16 03:52 37.2 69 20 112/59 (76) 93 Room Air 11/27/16 23:59 Room Air 11/27/16 22:53 36.6 69 20 135/67 (89) 96 Room Air 11/27/16 20:00 Room Air 11/27/16 19:29 36.7 70 18 126/67 (86) 94 Room Air 11/27/16 18:30 36.7 71 20 132/81 (98) 93 Room Air 11/27/16 18:15 84 20 157/84 (108) 89 Room Air 11/27/16 18:00 69 20 150/65 (93) 96 Physical Exam General Appearance: WD/WN, no apparent distress Eyes: normal inspection, sclerae normal ENT: normal ENT inspection, pharynx normal Neck: supple, no adenopathy, trachea midline Respiratory/Chest: chest non-tender, lungs clear, normal breath sounds, no respiratory distress Cardiovascular: regular rate, rhythm, no gallop, no murmur Abdomen: normal bowel sounds, non tender, soft, no organomegaly Extremities: + slow capillary refill, + pertinent finding (Status post right AKA) Neurologic/Psychiatric: alert, oriented x 3 Skin: normal color, no rash, + pertinent finding (Surgical dressing intact) Lymphatic: no adenopathy Laboratory Results Current Inpatient Medications Date/Time Source Procedure Growth Status 11/27/16 20:07 Blood Blood Culture Pending Received 11/27/16 19:59 Blood Blood Culture Pending Received 11/28/16 00:00 Nasal MRSA DNA Surveillance Screen - Final Specimen Positive for MRSA by DNA Probe Complete 11/27/16 20:00 Stool C.difficile Toxin B Gene (PCR) - Final Positive for C. difficile toxin B gene Complete Last 24 Hours Test 11/27/16 20:07 11/27/16 21:09 11/28/16 08:00 11/28/16 08:01 White Blood Count 36.42 K/uL 29.02 K/uL Red Blood Count 6.87 M/uL 6.43 M/uL Hemoglobin 15.3 g/dL 13.7 g/dL Hematocrit 46.5 % 43.4 % Mean Corpuscular Volume 67.7 fL 67.5 fL Mean Corpuscular Hemoglobin 22.3 pg 21.3 pg Mean Corpuscular Hemoglobin Concent 32.9 g/dl 31.6 g/dl Platelet Count 903 K/uL 922 K/uL Mean Platelet Volume 9.1 fL 9.0 fL Neutrophils (%) (Auto) 92.3 % 92.8 % Lymphocytes (%) (Auto) 2.4 % 2.8 % Monocytes (%) (Auto) 4.0 % 3.2 % Eosinophils (%) (Auto) 0.0 % 0.0 % Basophils (%) (Auto) 0.1 % 0.1 % Neutrophils # (Auto) 33.60 K/uL 26.94 K/uL Lymphocytes # (Auto) 0.89 K/uL 0.80 K/uL Monocytes # (Auto) 1.45 K/uL 0.94 K/uL Eosinophils # (Auto) 0.00 K/uL 0.00 K/uL Basophils # (Auto) 0.04 K/uL 0.02 K/uL RDW Standard Deviation 46.7 fL 46.7 fL RDW Coefficient of Variation 20.0 % 19.9 % Immature Granulocyte % (Auto) 1.2 % 1.1 % Immature Granulocyte # (Auto) 0.44 K/uL 0.32 K/uL Nucleated RBC Absolute Count (auto) 0.08 K/uL Nucleated Red Blood Cells % 0.2 % Polychromasia 1+ 1+ Microcytosis PRESENT PRESENT Sodium Level 139 mmol/L 141 mmol/L Potassium Level 4.4 mmol/L 3.9 mmol/L Chloride Level 110 mmol/L 112 mmol/L Carbon Dioxide Level 19 mmol/L 20 mmol/L Anion Gap 10.0 mmol/L 9.0 mmol/L Blood Urea Nitrogen 28 mg/dl 30 mg/dl Creatinine 1.70 mg/dl 1.60 mg/dl Est Creatinine Clear Calc Drug Dose 36.3 ml/min 38.6 ml/min Estimated GFR () 44.7 48.1 Estimated GFR (Non- 38.6 41.5 BUN/Creatinine Ratio 16.5 18.8 Random Glucose 120 mg/dl 116 mg/dl Calcium Level 8.8 mg/dl 8.5 mg/dl Total Bilirubin 0.6 mg/dl Aspartate Amino Transf (AST/SGOT) 48 U/L Alanine Aminotransferase (ALT/SGPT) 51 U/L Alkaline Phosphatase 82 U/L Total Protein 6.2 gm/dl Albumin 2.8 gm/dl Globulin 3.4 gm/dl Albumin/Globulin Ratio 0.8 Chemistry Specimen Hemolysis Lactic Acid Level 1.7 mmol/L 1.1 mmol/L Vancomycin Level Trough 14.3 mcg/ml Toxic Granulation 1+ Toxic Vacuolation 1+ Anisocytosis PRESENT Ovalocytes 1+ Prothrombin Time 16.5 SECONDS Prothromb Time International Ratio 1.5 Test 11/28/16 13:18 11/28/16 13:47 Bedside Glucose 115 mg/dl Lactic Acid Level 1.6 mmol/L Patient Name: ERICK BAR Unit Number: [id number] Dictated: 11/28/1636 Transcribed: 11/28/16735 EV Printed Date/Time: [~ rep prt dt]/[~ rep prt tm] [~ rep ct labl] - [~ rep ct ivnm] [facility] [address] Radiology Department [place], [place] [id number] Dictated: 11/28/16735 Transcribed: 11/28/16735 EV Printed Date/Time: [~ rep prt dt]/[~ rep prt tm] [~ rep ct labl] - [~ rep ct ivnm] SINGLE VIEW CHEST CLINICAL HISTORY: Dyspnea. FINDINGS: An AP, portable, upright chest radiograph is compared to study dated 11/27/2016 and correlated with chest CT dated 11/25/2016. The examination is degraded by portable technique and patient rotation. The heart is top normal for projection. The pulmonary vasculature is noncongested. Mild emphysema and chronic interstitial thickening is similar to previous. A right upper lobe lung mass is unchanged, as is a right lower lobe lesion. A calcified nodule is again noted in the left lower lobe. There is no airspace consolidation typical for pneumonia or large pleural effusion. No pneumothorax is seen. The skeletal structures are osteopenic. The bony thorax is grossly intact. IMPRESSION: 1. Emphysema with no acute cardiopulmonary abnormality. 2. Right-sided pulmonary masses and a calcified left lower lobe pulmonary nodule are unchanged. Electronically signed by: Jose Luis Dawkins M.D. 11/28/2016 7:37 AM Dictated Date/Time: 11/28/2016 7:36 AM The status of this report is Signed. Draft = Not yet reviewed or approved by Radiologist. Signed = Reviewed and approved by Radiologist. <AttendingPhy>Kristie Kaur M.D.</AttendingPhy> <FamilyPhy>Adams Amezcua M.D.</ FamilyPhy> <PrimaryPhy>Adams Amezcua M.D.</PrimaryPhy> <UnitNumber>[id number]</ UnitNumber> <VisitNumber>[id number]</VisitNumber> <PatientName>ERICK BAR</ PatientName> <DateOfBirth>1940</DateOfBirth> <Location>C.2T</Location> < ServiceDate>11/24/16</ServiceDate> <MNE>ESINDI</MNE> <OrderingPhy>Kristie Kaur MD</OrderingPhy> <OrderingPhyMNE>f rep ord dr macdonald</OrderingPhyMNE> < DictatingPhyMNE>f rep dict dr macdonald</DictatingPhyMNE> <CCListMNE>f rep ct mne</ CCListMNE> <AdmittingPhyMNE>f pt admit dr macdonald</AdmittingPhyMNE> <AttendingPhyMNE >f pt attend dr macdonald</AttendingPhyMNE> <ConsultingPhyMNE>f pt consult dr macdonald</ConsultingPhyMNE> <FamilyPhyMNE>f pt fam dr macdonald</FamilyPhyMNE> <OtherPhyMNE>f pt other dr macdonald</OtherPhyMNE> < PrimaryPhyMNE>f pt prim care dr macdonald</PrimaryPhyMNE> <ReferringPhyMNE>f pt referring dr macdonald</ReferringPhyMNE> Assessment and Plan 76-year-old male with severe peripheral arterial disease, status post left AKA , atrial fibrillation, now with sepsis, progressive gangrenous changes of right foot, and likely associated cellulitis. patient now status post right AKA, await operative cultures. Continue present antibiotics for now. Will follow.
[2016-11-28 18:17] LABS: FUNGITELL (1-3)-B-D-GLUCAN* <31 pg/mL; FUNGITELL INTERP NEGATIVE
--- NOTE | 2016-11-28 20:00 | Progress Note ---
Internal Med Progress Note Date of Service: Nov 28, 2016. Provider Documentation: SUBJECTIVE: s/p above knee amputation by Dr Gallegos today had uneventful procedure vitals remains stable awake and alert today , no evidence of confusion or agitation conversing appropriately Son present at bedside OBJECTIVE: Vital Signs-as noted below Exam: General-awake and alert, no sign of distress Eyes-sclera non icteric Neck-minimum erythematous rash in face and torso . much improved clinically Lungs- diminished Heart-regular Abdomen-soft, Extremities- left BKA , S/P rt BKA Neuro-confused , Lab data as noted below. ASSESSMENT & PLAN: SEVERE SEPSIS due to necrotic /ischemic rt lower limbs /C diff colitis admitted with leukocytosis (WBC 23K, was 16.9 on 11/03/16), + tachycardia, afebrile, no hypotension, POC lactate 2.44 s/p angiogram of rt lower ext : no vascular flow below rt Profunda femoris artery , recommend rt lower ext amputation S/P RT AKA by Dr Gallegos today tolerated the procedure well , vital remains stable post ,op will D/c Abx -post amputation of ischemic limb .C diff colitis C. DIFF COLITIS : has been on broad spectrum abx due to above started on PO vancomycin -will need 10 days course contact isolation D/c IV ABx DIFFUSE RASH /NECK SWELLING ; developed after angiogram possible due to contrast allergy -noted to have allergy to contrast dye pt was pre medicated ordered for IV Steroid /Benadryl/IV H1 jose cont IVF THROMBOCYTOSIS markedly elevated platelet count > 900 K due to severe sepsis ? high risk for thrombosis /DIC follow CBC daily DELIRIUM /CONFUSION : metabolic encephalopathy due to above MRI of brain combo shows no metastatic process ( lung CA with mets ) delirium resolved after amputation of ischemic limb awake and alert, no agitation or confusion able to have appropriate conversation mental status improved to baseline KARINA on CKD stage 3 : Creatinine improved 2.5 -> 1.9 -> 1.6 -> 1.8 -. 1.6 ( approx baseline ) on IV fluids follow PRP tomorrow cont to Hold Losartan and Lasix nephrology consulted -appreciate input SEVERE PERIPHERAL VASCULAR DISEASE RLE Doppler showed age indeterminate occlusion of superficial femoral artery, extensive atherosclerotic plaque within RLE, hemodynamically significant stenosis of the right common femoral artery Consulted vascular surgery- Dr. Gallegos appreciate consult s/p angiogram of rt lower ext shows total occlusion of vessels /no flow beyond profunda femoris artery rt great foot and toe developed progressive ischemic change S/P AKA of rt lower limb by Dr Gallegos HISTORY OF LUNG CANCER S/p radiation July 2013 CXR shows multiple lung nodules, ?metastatic appreciate Consult from pulmonology CT chest shows : Spiculated 5.2 cm mass in the right upper lobe with extension to the right hilum highly concerning for primary bronchogenic carcinoma. Cavitary 2.5 cm nodule in the right lower lobe is concerning for regional metastatic disease. report of CT Chest updated to pt and family MRI of brain combo ordered show now intracranial mets poor prognosis for aggressive lung malignancy PAROXYSMAL ATRIAL FIBRILLATION sinus tachycardia due to sepsis ordered for IV Lopressor ; cont PRN dose for HR> 100 cont PO Lopressor CODE STATUS DNR DISPOSITION: cont to monitor in ICU post op f Contact : Son Mariusz Multani Terry Alvarez Vital Signs: Date Time Temp Pulse Resp B/P (MAP) Pulse Ox O2 Delivery O2 Flow Rate FiO2 11/29/16 08:00 36.8 68 22 153/69 (97) 94 Room Air 11/29/16 08:00 Room Air 11/29/16 05:01 86 18 158/72 (100) 96 Room Air 11/29/16 04:01 36.8 60 19 159/74 (102) 94 Room Air 11/29/16 04:00 Room Air 11/29/16 03:02 67 14 144/87 (106) 99 Nasal Cannula 2.0 11/29/16 02:01 58 15 148/80 (102) 99 Nasal Cannula 4.0 11/29/16 01:01 74 17 149/79 (102) 100 Nasal Cannula 4.0 11/29/16 00:01 4 Nasal Cannula 11/29/16 00:01 36.6 55 17 163/73 (103) 100 11/28/16 23:01 60 18 140/72 (94) 100 Nasal Cannula 4.0 11/28/16 22:01 61 17 145/73 (97) 93 Room Air 11/28/16 21:01 67 15 163/84 (110) 94 Room Air 11/28/16 20:08 36.7 98 19 142/77 (98) 93 Room Air 11/28/16 20:00 Room Air 11/28/16 19:02 92 20 136/81 (99) 93 Room Air 11/28/16 18:01 91 19 166/74 (104) 95 Room Air 11/28/16 17:02 81 21 163/75 (104) 91 Room Air 11/28/16 16:02 84 22 159/94 (115) 95 Room Air 11/28/16 16:00 Room Air 11/28/16 15:01 87 23 159/104 (122) 96 Room Air 11/28/16 14:01 73 21 172/81 (111) 99 Nasal Cannula 2.0 11/28/16 13:17 75 20 178/87 (117) 96 Nasal Cannula 2.0 11/28/16 13:06 36.6 71 18 178/87 (117) 98 Nasal Cannula 2.0 11/28/16 12:45 72 18 171/85 98 Nasal Cannula 2 11/28/16 12:30 73 20 168/80 98 Nasal Cannula 2 11/28/16 12:15 74 14 179/82 96 Nasal Cannula 2 11/28/16 12:05 36.7 72 16 171/72 96 Nasal Cannula 2 Lab Results: Results Past 24 Hours Test 11/28/16 13:18 11/28/16 13:47 11/28/16 21:14 11/29/16 00:46 Range/Units Bedside Glucose 115 142 126 70-99 mg/dl Lactic Acid Level 1.6 0.4-2.0 mmol/L Test 11/29/16 05:02 Range/Units White Blood Count 29.68 4.8-10.8 K/uL Red Blood Count 6.06 4.7-6.1 M/uL Hemoglobin 12.7 14.0-18.0 g/dL Hematocrit 42.1 42-52 % Mean Corpuscular Volume 69.5 80-100 fL Mean Corpuscular Hemoglobin 21.0 25-34 pg Mean Corpuscular Hemoglobin Concent 30.2 32-36 g/dl Platelet Count 997 130-400 K/uL Mean Platelet Volume 9.1 7.4-10.4 fL Neutrophils (%) (Auto) 86.8 % Lymphocytes (%) (Auto) 3.3 % Monocytes (%) (Auto) 8.2 % Eosinophils (%) (Auto) 0.0 % Basophils (%) (Auto) 0.1 % Neutrophils # (Auto) 25.79 1.4-6.5 K/uL Lymphocytes # (Auto) 0.97 1.2-3.4 K/uL Monocytes # (Auto) 2.42 0.11-0.59 K/uL Eosinophils # (Auto) 0.00 0-0.5 K/uL Basophils # (Auto) 0.02 0-0.2 K/uL RDW Standard Deviation 48.2 36.4-46.3 fL RDW Coefficient of Variation 19.8 11.5-14.5 % Immature Granulocyte % (Auto) 1.6 % Immature Granulocyte # (Auto) 0.48 0.00-0.02 K/uL Toxic Granulation 1+ Polychromasia 1+ Microcytosis PRESENT Ovalocytes 1+ Echinocytes 1+ Prothrombin Time 15.7 9.0-12.0 SECONDS Prothromb Time International Ratio 1.4 0.9-1.1 Sodium Level 144 136-145 mmol/L Potassium Level 4.4 3.5-5.1 mmol/L Chloride Level 113 98-107 mmol/L Carbon Dioxide Level 24 21-32 mmol/L Anion Gap 7.0 3-11 mmol/L Blood Urea Nitrogen 32 7-18 mg/dl Creatinine 1.60 0.60-1.40 mg/dl Est Creatinine Clear Calc Drug Dose 38.6 ml/min Estimated GFR () 48.1 Estimated GFR (Non- 41.5 BUN/Creatinine Ratio 20.2 10-20 Random Glucose 110 70-99 mg/dl Calcium Level 7.9 8.5-10.1 mg/dl
[2016-11-29] VITALS (10 sets, daily range): BP systolic 144–174; BP diastolic 69–87; PULSE 55–112; TEMP 36.6–37.1; O2SAT 4–100
[2016-11-29] MEDS: LEVOTHYROXINE 100 MCG TAB PO SCH (04:55)
[2016-11-29] MEDS: DiphenhydrAMINE HCL 50 MG/ML VIAL IV SCH (04:55)
[2016-11-29 05:15] LABS: HEMATOCRIT 42.1 % (42-52); MEAN CELL VOLUME 69.5 fL (80-100); MEAN CORPUSCULAR HGB CONC 30.2 g/dl (32-36); MEAN PLATELET VOLUME 9.1 fL (7.4-10.4); PLATELET COUNT 997 K/uL (130-400); RED BLOOD COUNT 6.06 M/uL (4.7-6.1); WHITE BLOOD COUNT 29.68 K/uL (4.8-10.8)
[2016-11-29 05:24] LABS: INR 1.4 (0.9-1.1); PROTHROMBIN TIME (PATIENT) 15.7 SECONDS (9.0-12.0)
[2016-11-29 05:42] LABS: BUN/CREATININE RATIO 20.2 (10-20); CALCIUM 7.9 mg/dl (8.5-10.1); CREATININE 1.6 mg/dl (0.60-1.40); POTASSIUM 4.4 mmol/L (3.5-5.1)
[2016-11-29 05:43] LABS: BASO % 0.1 %; BASO ABS # 0.02 K/uL (0-0.2); COMPLETE YES; ECHINOCYTES 1+; IG% 1.6 %; LYMPH % 3.3 %; LYMPH ABS # 0.97 K/uL (1.2-3.4); MICROCYTOSIS PRESENT; MONO % 8.2 %; NEUT % 86.8 %; OVALOCYTES 1+; POLYCHROMASIA 1+; TOXIC GRANULATION 1+
[2016-11-29] MEDS: FAMOTIDINE IV INJ 20 MG in DEXTROSE 5% 100ML 100 ML IV SCH (07:41)
[2016-11-29] MEDS: VANCOMYCIN HCL 250 MG/5 ML SOLN PO SCH ×4 (07:41→19:43)
[2016-11-29] MEDS: RASPBERRY SYRUP 5 ML UDP PO SCH ×4 (07:41→19:44)
[2016-11-29] MEDS: SODIUM CHLORIDE 0.9% 1000ML 1,000 ML IV SCH (07:42)
[2016-11-29] MEDS: METOPROLOL TARTRATE 50 MG TAB PO SCH ×2 (07:43→19:45)
[2016-11-29] MEDS: MULTIVITAMIN TAB PO SCH (07:43)
--- NOTE | 2016-11-29 08:46 | Progress Note ---
Progress Note Date of Service: Nov 29, 2016. Subjective Awake alert. No complaints. Problem List Medical Problems: (1) Cellulitis of right leg Status: Acute (2) Failure of outpatient treatment Status: Acute (3) Sepsis Status: Acute Objective Vital Signs Vital Signs Past 12 Hours Date Time Temp Pulse Resp B/P (MAP) Pulse Ox O2 Delivery O2 Flow Rate FiO2 11/29/16 05:01 86 18 158/72 (100) 96 Room Air 11/29/16 04:01 36.8 60 19 159/74 (102) 94 Room Air 11/29/16 04:00 Room Air 11/29/16 03:02 67 14 144/87 (106) 99 Nasal Cannula 2.0 11/29/16 02:01 58 15 148/80 (102) 99 Nasal Cannula 4.0 11/29/16 01:01 74 17 149/79 (102) 100 Nasal Cannula 4.0 11/29/16 00:01 4 Nasal Cannula 11/29/16 00:01 36.6 55 17 163/73 (103) 100 11/28/16 23:01 60 18 140/72 (94) 100 Nasal Cannula 4.0 11/28/16 22:01 61 17 145/73 (97) 93 Room Air 11/28/16 21:01 67 15 163/84 (110) 94 Room Air Exam Dressing intact. VSS Afebrile Laboratory and Microbiology Results Past 24 Hours Test 11/28/16 13:18 11/28/16 13:47 11/28/16 21:14 11/29/16 00:46 Range/Units Bedside Glucose 115 142 126 70-99 mg/dl Lactic Acid Level 1.6 0.4-2.0 mmol/L Test 11/29/16 05:02 Range/Units White Blood Count 29.68 4.8-10.8 K/uL Red Blood Count 6.06 4.7-6.1 M/uL Hemoglobin 12.7 14.0-18.0 g/dL Hematocrit 42.1 42-52 % Mean Corpuscular Volume 69.5 80-100 fL Mean Corpuscular Hemoglobin 21.0 25-34 pg Mean Corpuscular Hemoglobin Concent 30.2 32-36 g/dl Platelet Count 997 130-400 K/uL Mean Platelet Volume 9.1 7.4-10.4 fL Neutrophils (%) (Auto) 86.8 % Lymphocytes (%) (Auto) 3.3 % Monocytes (%) (Auto) 8.2 % Eosinophils (%) (Auto) 0.0 % Basophils (%) (Auto) 0.1 % Neutrophils # (Auto) 25.79 1.4-6.5 K/uL Lymphocytes # (Auto) 0.97 1.2-3.4 K/uL Monocytes # (Auto) 2.42 0.11-0.59 K/uL Eosinophils # (Auto) 0.00 0-0.5 K/uL Basophils # (Auto) 0.02 0-0.2 K/uL RDW Standard Deviation 48.2 36.4-46.3 fL RDW Coefficient of Variation 19.8 11.5-14.5 % Immature Granulocyte % (Auto) 1.6 % Immature Granulocyte # (Auto) 0.48 0.00-0.02 K/uL Toxic Granulation 1+ Polychromasia 1+ Microcytosis PRESENT Ovalocytes 1+ Echinocytes 1+ Prothrombin Time 15.7 9.0-12.0 SECONDS Prothromb Time International Ratio 1.4 0.9-1.1 Sodium Level 144 136-145 mmol/L Potassium Level 4.4 3.5-5.1 mmol/L Chloride Level 113 98-107 mmol/L Carbon Dioxide Level 24 21-32 mmol/L Anion Gap 7.0 3-11 mmol/L Blood Urea Nitrogen 32 7-18 mg/dl Creatinine 1.60 0.60-1.40 mg/dl Est Creatinine Clear Calc Drug Dose 38.6 ml/min Estimated GFR () 48.1 Estimated GFR (Non- 41.5 BUN/Creatinine Ratio 20.2 10-20 Random Glucose 110 70-99 mg/dl Calcium Level 7.9 8.5-10.1 mg/dl Imp; Post right leg AKA Plan: Doing much better. Much more lucid. Will check wound tomorrow.
--- NOTE | 2016-11-29 08:52 | Critical Care Progress Note ---
Critical Care Progress Note Date of Service Nov 29, 2016. Attending Dr. Murillo Subjective asymptomatic this am, no pain at the stup site, minimal bloody drainage , improved since yesterday. no events over night. Objective as above. Current SOFA Score SOFA Score Response (Comments) Value PaO2/FiO2 (mmHg) < 400 1 SaO2 / FIO2 221 - 301 1 Platelets (x10) > 150 0 Bilirubin (mg/dL) < 1.2 0 [place] Coma Score 15 0 Level of Hypotension No Hypotension 0 Creatinine (mg/dL) < 1.2 0 Total 2 Assessment & Plan 1- PAD, with ischemic right lower ext , s/p AKA. 2- C diff colitis on Vanco po. 3- anaphylaxis reaction to the IV contrast, treated with steroids , H1H2 blockers. 4- HTN. 5- a fib. 6- squamous cell lung CA , RUL and RLL lesions. Plan: 1- change Pepcid to PO 20 mg bid. 2- change Benadryl to 25 mg po BID. 3- continue prednisone 40 mg for 4 more days. 4- agree with stopping systemic abx. 5- continue Vanco PO. 6- Oral intake. 7- dressing change of the right stump per surgical team. 8- transfer to the regular floor. discussed with Dr. Duncan. with the staff on rounds. 9- continue lopressor PO, seems to control HR and BP, although BP slightly elevated. 10- anticoagulation on hold due to stump bloody drainage, can be addressed later. CCT 35 min. Consults & Procedures Consultants: SAM right sided. Procedures: vascular and CCM. Data Medications: Current Inpatient Medications Medications (Trade) Dose Ordered Sig/[facility] Route Start Time Stop Time Status Last Admin Dose Admin Heparin Sodium (Porcine) (Heparin Sq 5000 Unit/0.5ml) 5,000 unit Q8 SQ 11/24/16 22:00 12/24/16 21:59 Future Hold 11/27/16 06:17 5,000 UNIT Acetaminophen (Tylenol Tab) 650 mg Q4H PRN PO 11/24/16 15:15 12/24/16 15:14 11/25/16 14:39 650 MG Ondansetron HCl (Zofran Inj) 4 mg Q6H PRN IV 11/24/16 15:15 12/24/16 15:14 Levothyroxine Sodium (Synthroid Tab) 100 mcg DAILYBB PO 11/25/16 06:00 12/25/16 06:59 11/29/16 04:55 100 MCG Multivitamins (Multivitamin Tab) 1 tab DAILY PO 11/25/16 09:00 12/25/16 08:59 11/29/16 07:43 1 TAB Metoprolol Tartrate (Lopressor Iv) 5 mg Q6 PRN IV 11/25/16 20:00 12/25/16 19:59 11/26/16 05:21 5 MG Gadobutrol (Gadavist) 6 mmol UD PRN IV 11/26/16 22:30 11/30/16 22:29 Metoprolol Tartrate (Lopressor Tab) 50 mg BID PO 11/27/16 09:00 12/26/16 20:59 11/29/16 07:43 50 MG Risperidone (Risperdal M Tab) 0.5 mg Q6 PRN PO 11/27/16 19:45 12/27/16 19:44 11/27/16 21:59 0.5 MG Famotidine 20 mg/ Dextrose 102 ml @ 200 mls/hr Q12H IV 11/27/16 20:00 12/27/16 19:59 11/29/16 07:41 200 MLS/HR Sodium Chloride 1,000 ml @ 100 mls/hr Q10H IV 11/27/16 19:45 12/27/16 19:44 11/29/16 07:42 100 MLS/HR Vancomycin HCl (Vancomycin Oral Soln) 250 mg QID PO 11/27/16 22:15 12/07/16 22:14 11/29/16 07:41 250 MG Raspberry (Raspberry Syrup 5ml Cup) 5 ml QID PO 11/27/16 22:15 12/11/16 22:14 11/29/16 07:41 5 ML Oxycodone/ Acetaminophen (Percocet 5-325mg Tab) 1 tab Q4H PRN PO 11/28/16 11:15 12/12/16 11:14 11/28/16 14:32 1 TAB Prednisone (PredniSONE TAB) 40 mg DAILY PO 11/29/16 09:00 01/01/17 08:00 11/29/16 07:42 40 MG Vital Signs: Date Time Temp Pulse Resp B/P (MAP) Pulse Ox O2 Delivery O2 Flow Rate FiO2 11/29/16 05:01 86 18 158/72 (100) 96 Room Air 11/29/16 04:01 36.8 60 19 159/74 (102) 94 Room Air 11/29/16 04:00 Room Air 11/29/16 03:02 67 14 144/87 (106) 99 Nasal Cannula 2.0 11/29/16 02:01 58 15 148/80 (102) 99 Nasal Cannula 4.0 11/29/16 01:01 74 17 149/79 (102) 100 Nasal Cannula 4.0 11/29/16 00:01 4 Nasal Cannula 11/29/16 00:01 36.6 55 17 163/73 (103) 100 11/28/16 23:01 60 18 140/72 (94) 100 Nasal Cannula 4.0 11/28/16 22:01 61 17 145/73 (97) 93 Room Air 11/28/16 21:01 67 15 163/84 (110) 94 Room Air 11/28/16 20:08 36.7 98 19 142/77 (98) 93 Room Air 11/28/16 20:00 Room Air 11/28/16 19:02 92 20 136/81 (99) 93 Room Air 11/28/16 18:01 91 19 166/74 (104) 95 Room Air 11/28/16 17:02 81 21 163/75 (104) 91 Room Air 11/28/16 16:02 84 22 159/94 (115) 95 Room Air 11/28/16 16:00 Room Air 11/28/16 15:01 87 23 159/104 (122) 96 Room Air 11/28/16 14:01 73 21 172/81 (111) 99 Nasal Cannula 2.0 11/28/16 13:17 75 20 178/87 (117) 96 Nasal Cannula 2.0 11/28/16 13:06 36.6 71 18 178/87 (117) 98 Nasal Cannula 2.0 11/28/16 12:45 72 18 171/85 98 Nasal Cannula 2 11/28/16 12:30 73 20 168/80 98 Nasal Cannula 2 11/28/16 12:15 74 14 179/82 96 Nasal Cannula 2 11/28/16 12:05 36.7 72 16 171/72 96 Nasal Cannula 2 11/28/16 11:55 72 17 167/76 97 Nasal Cannula 2 11/28/16 11:45 69 22 164/78 100 Mask 10 11/28/16 11:35 75 18 174/73 100 Mask 10 11/28/16 11:31 36.3 74 16 173/80 100 Mask 10 Laboratory Results: Last 24 Hours Test 11/28/16 13:18 11/28/16 13:47 11/28/16 21:14 11/29/16 00:46 Bedside Glucose 115 mg/dl 142 mg/dl 126 mg/dl Lactic Acid Level 1.6 mmol/L Test 11/29/16 05:02 White Blood Count 29.68 K/uL Red Blood Count 6.06 M/uL Hemoglobin 12.7 g/dL Hematocrit 42.1 % Mean Corpuscular Volume 69.5 fL Mean Corpuscular Hemoglobin 21.0 pg Mean Corpuscular Hemoglobin Concent 30.2 g/dl Platelet Count 997 K/uL Mean Platelet Volume 9.1 fL Neutrophils (%) (Auto) 86.8 % Lymphocytes (%) (Auto) 3.3 % Monocytes (%) (Auto) 8.2 % Eosinophils (%) (Auto) 0.0 % Basophils (%) (Auto) 0.1 % Neutrophils # (Auto) 25.79 K/uL Lymphocytes # (Auto) 0.97 K/uL Monocytes # (Auto) 2.42 K/uL Eosinophils # (Auto) 0.00 K/uL Basophils # (Auto) 0.02 K/uL RDW Standard Deviation 48.2 fL RDW Coefficient of Variation 19.8 % Immature Granulocyte % (Auto) 1.6 % Immature Granulocyte # (Auto) 0.48 K/uL Toxic Granulation 1+ Polychromasia 1+ Microcytosis PRESENT Ovalocytes 1+ Echinocytes 1+ Prothrombin Time 15.7 SECONDS Prothromb Time International Ratio 1.4 Sodium Level 144 mmol/L Potassium Level 4.4 mmol/L Chloride Level 113 mmol/L Carbon Dioxide Level 24 mmol/L Anion Gap 7.0 mmol/L Blood Urea Nitrogen 32 mg/dl Creatinine 1.60 mg/dl Est Creatinine Clear Calc Drug Dose 38.6 ml/min Estimated GFR () 48.1 Estimated GFR (Non- 41.5 BUN/Creatinine Ratio 20.2 Random Glucose 110 mg/dl Calcium Level 7.9 mg/dl
[2016-11-29] MEDS ORDERED: POLYETHYLENE (MIRALAX) 17 GM PACK PO PRN (09:15)
[2016-11-29] MEDS: OXYCODONE/ACETAMINOPHEN 5-325 TAB PO PRN ×2 (11:56→17:07)
--- NOTE | 2016-11-29 15:04 | Nephrology Progress Note ---
Nephrology Progress Note Date of Service Nov 29, 2016. Chief Complaint KARINA/CKD Subjective Patient was seen and evaluated this morning. There were no acute events overnight. No complications with surgery. Pain control appropriate. Rangel was in good spirits. Transferred from ICU. Review of Systems A complete review of systems was performed. Pertinent positives are noted above. All other systems are negative. Vital Signs Last 8 Hrs Date Time Temp Pulse Resp B/P (MAP) Pulse Ox O2 Delivery O2 Flow Rate FiO2 11/29/16 12:00 37.1 60 19 152/76 (101) 95 Room Air 11/29/16 12:00 Room Air 11/29/16 08:00 36.8 68 22 153/69 (97) 94 Room Air 11/29/16 08:00 Room Air Last Recorded Weight Weight (Kilograms): 73.000 Physical Exam General Appearance: WD/WN, no apparent distress Head: normocephalic, atraumatic Eyes: normal inspection, sclerae normal ENT: normal ENT inspection, pharynx normal Neck: supple, no JVD Respiratory/Chest: lungs clear, no respiratory distress, no accessory muscle use Cardiovascular: regular rate, rhythm, no murmur Abdomen/GI: non tender, soft Extremities/Musculoskelatal: normal inspection, + pertinent finding (Surgical dressing CDI) Neurologic/Psych: alert, normal mood/affect Family History Buerger's disease FATHER Hypertension Kidney disease SISTER Kidney stones Social History Smokeless Tobacco Use: No Alcohol Use: none Drug Use: none Marital Status: Housing Status: lives with significant other 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) Laboratory Results Past 24 Hours 11/29/16 05:02 Red Blood Count 6.06, Mean Corpuscular Volume 69.5, Mean Corpuscular Hemoglobin 21.0, Mean Corpuscular Hemoglobin Concent 30.2, Mean Platelet Volume 9.1, Neutrophils (%) (Auto) 86.8, Lymphocytes (%) (Auto) 3.3, Monocytes (%) (Auto) 8.2, Eosinophils (%) (Auto) 0.0, Basophils (%) (Auto) 0.1, Neutrophils # (Auto) 25.79, Lymphocytes # (Auto) 0.97, Monocytes # (Auto) 2.42, Eosinophils # (Auto) 0.00, Basophils # (Auto) 0.02 11/29/16 05:02 Test 11/28/16 21:14 11/29/16 00:46 11/29/16 05:02 Bedside Glucose 142 mg/dl (70-99) 126 mg/dl (70-99) White Blood Count 29.68 K/uL (4.8-10.8) Red Blood Count 6.06 M/uL (4.7-6.1) Hemoglobin 12.7 g/dL (14.0-18.0) Hematocrit 42.1 % (42-52) Mean Corpuscular Volume 69.5 fL (80-100) Mean Corpuscular Hemoglobin 21.0 pg (25-34) Mean Corpuscular Hemoglobin Concent 30.2 g/dl (32-36) Platelet Count 997 K/uL (130-400) Mean Platelet Volume 9.1 fL (7.4-10.4) Neutrophils (%) (Auto) 86.8 % Lymphocytes (%) (Auto) 3.3 % Monocytes (%) (Auto) 8.2 % Eosinophils (%) (Auto) 0.0 % Basophils (%) (Auto) 0.1 % Neutrophils # (Auto) 25.79 K/uL (1.4-6.5) Lymphocytes # (Auto) 0.97 K/uL (1.2-3.4) Monocytes # (Auto) 2.42 K/uL (0.11-0.59) Eosinophils # (Auto) 0.00 K/uL (0-0.5) Basophils # (Auto) 0.02 K/uL (0-0.2) RDW Standard Deviation 48.2 fL (36.4-46.3) RDW Coefficient of Variation 19.8 % (11.5-14.5) Immature Granulocyte % (Auto) 1.6 % Immature Granulocyte # (Auto) 0.48 K/uL (0.00-0.02) Toxic Granulation 1+ Polychromasia 1+ Microcytosis PRESENT Ovalocytes 1+ Echinocytes 1+ Prothrombin Time 15.7 SECONDS (9.0-12.0) Prothromb Time International Ratio 1.4 (0.9-1.1) Anion Gap 7.0 mmol/L (3-11) Est Creatinine Clear Calc Drug Dose 38.6 ml/min Estimated GFR () 48.1 Estimated GFR (Non- 41.5 BUN/Creatinine Ratio 20.2 (10-20) Calcium Level 7.9 mg/dl (8.5-10.1) Allergies Coded Allergies: Iodinated Diagnostic Agents (Unverified Allergy, Unknown, ., 11/24/16) Medications Current Inpatient Medications Medications (Trade) Dose Ordered Sig/Greg Route Start Time Stop Time Status Last Admin Dose Admin Heparin Sodium (Porcine) (Heparin Sq 5000 Unit/0.5ml) 5,000 unit Q8 SQ 11/24/16 22:00 12/24/16 21:59 Future Hold 11/27/16 06:17 5,000 UNIT Acetaminophen (Tylenol Tab) 650 mg Q4H PRN PO 11/24/16 15:15 12/24/16 15:14 11/25/16 14:39 650 MG Ondansetron HCl (Zofran Inj) 4 mg Q6H PRN IV 11/24/16 15:15 12/24/16 15:14 Levothyroxine Sodium (Synthroid Tab) 100 mcg DAILYBB PO 11/25/16 06:00 12/25/16 06:59 11/29/16 04:55 100 MCG Multivitamins (Multivitamin Tab) 1 tab DAILY PO 11/25/16 09:00 12/25/16 08:59 11/29/16 07:43 1 TAB Metoprolol Tartrate (Lopressor Iv) 5 mg Q6 PRN IV 11/25/16 20:00 12/25/16 19:59 11/26/16 05:21 5 MG Gadobutrol (Gadavist) 6 mmol UD PRN IV 11/26/16 22:30 11/30/16 22:29 Metoprolol Tartrate (Lopressor Tab) 50 mg BID PO 11/27/16 09:00 12/26/16 20:59 11/29/16 07:43 50 MG Risperidone (Risperdal M Tab) 0.5 mg Q6 PRN PO 11/27/16 19:45 12/27/16 19:44 11/27/16 21:59 0.5 MG Vancomycin HCl (Vancomycin Oral Soln) 250 mg QID PO 11/27/16 22:15 12/07/16 22:14 11/29/16 12:52 250 MG Raspberry (Raspberry Syrup 5ml Cup) 5 ml QID PO 11/27/16 22:15 12/11/16 22:14 11/29/16 12:52 5 ML Oxycodone/ Acetaminophen (Percocet 5-325mg Tab) 1 tab Q4H PRN PO 11/28/16 11:15 12/12/16 11:14 11/29/16 11:56 1 TAB Prednisone (PredniSONE TAB) 40 mg DAILY PO 11/29/16 09:00 12/02/16 08:59 11/29/16 07:42 40 MG Famotidine (Pepcid Tab) 20 mg BID PO 11/29/16 21:00 12/29/16 20:59 Diphenhydramine HCl (Benadryl Cap) 25 mg BID PO 11/29/16 21:00 12/29/16 20:59 Polyethylene (Miralax Powder Packet) 17 gm DAILY PRN PO 11/29/16 09:15 12/29/16 09:14 Impression (1) Acute renal insufficiency (2) Vascular disease Rangel is a 76-year-old male with peripheral vascular disease, history of L AKA, hypertension, history of small cell lung cancer treated with XRT and now new evidence of metastatic disease. He admitted to the hospital with right lower extremity cellulitis and ischemia. He is POD# 1 s/p R AKA. He developed KARINA during his hospitalization. This is felt to have been hemodynamically mediated and consistent with prerenal azotemia. Creatinine was 2.5 on admission and has stabilized at 1.6 mg/dL. Creatinine was 1.7 approximately 2-3 weeks ago. UA unremarkable. Recommendations -- Renal function stable -- Electrolyte and volume status are acceptable, will monitor with daily renal panel -- Continue metoprolol to 50 twice a day -- Continue to hold losartan and Lasix -- Medications are appropriate for renal function
--- NOTE | 2016-11-29 15:21 | Progress Note ---
Internal Med Progress Note Date of Service: Nov 29, 2016. Provider Documentation: SUBJECTIVE: awake and alert , conversing appropriately had minimum pain at rt AKA amputation site required occasional Percocet only no fever or chills vitals remains stable evaluated by plant cytologist -ok to transfer to PCU OBJECTIVE: Vital Signs-as noted below Exam: General-awake and alert, no sign of distress Eyes-sclera non icteric Neck-almost resolution of erythematous rash in face and neck Lungs- diminished Heart-regular Abdomen-soft, Extremities- left BKA , S/P rt BKA Neuro-confused , Lab data as noted below. ASSESSMENT & PLAN: SEVERE SEPSIS due to necrotic /ischemic rt lower limbs /C diff colitis admitted with leukocytosis (WBC 23K, was 16.9 on 11/03/16), + tachycardia, afebrile, no hypotension, POC lactate 2.44 s/p angiogram of rt lower ext : no vascular flow below rt Profunda femoris artery , recommend rt lower ext amputation S/P RT AKA by Dr Gallegos on 11/28/16 tolerated the procedure well , vital remains stable post ,op will D/c Abx -post amputation of ischemic limb .C diff colitis clinically improving SEVERE PERIPHERAL VASCULAR DISEASE RLE Doppler showed age indeterminate occlusion of superficial femoral artery, extensive atherosclerotic plaque within RLE, hemodynamically significant stenosis of the right common femoral artery Consulted vascular surgery- Dr. Gallegos appreciate consult s/p angiogram of rt lower ext shows total occlusion of vessels /no flow beyond profunda femoris artery rt great foot and toe developed progressive ischemic change S/P AKA of rt lower limb by Dr Gallegos H&H /vitals remains stable post op stable to be transferred out pt ICU pt will need rehab post discharge form [facility] C. DIFF COLITIS : has been on broad spectrum abx due to above started on PO vancomycin -will need 10 days course contact isolation D/c IV ABx DIFFUSE RASH /NECK SWELLING /ALLERGIC REACTION TO CONTRAST DYE ; resolved with steroids and H1/H2 jose developed after angiogram /pt was pre medicated prior to study -noted to have allergy to contrast dye on PO Prednisone now day #2 total 3 days of tx should be sufficient as rash and swelling has improved markedly THROMBOCYTOSIS markedly elevated platelet count > 900 K due to severe sepsis ? high risk for thrombosis /DIC follow CBC daily DELIRIUM /CONFUSION : RESOLVED metabolic encephalopathy due to above MRI of brain combo shows no metastatic process ( lung CA with mets ) delirium resolved after amputation of ischemic limb awake and alert, no agitation or confusion able to have appropriate conversation mental status improved to baseline KARINA on CKD stage 3 : Creatinine improved 2.5 -> 1.9 -> 1.6 -> 1.8 -. 1.6 ( approx baseline ) D/c IV fluids ( pt is tolerating oral intake well ) follow PRP tomorrow cont to Hold Losartan and Lasix nephrology consulted -appreciate input HISTORY OF LUNG CANCER S/p radiation July 2013 CXR shows multiple lung nodules, ?metastatic appreciate Consult from pulmonology CT chest shows : Spiculated 5.2 cm mass in the right upper lobe with extension to the right hilum highly concerning for primary bronchogenic carcinoma. Cavitary 2.5 cm nodule in the right lower lobe is concerning for regional metastatic disease. report of CT Chest updated to pt and family MRI of brain combo ordered show now intracranial mets poor prognosis for aggressive lung malignancy PAROXYSMAL ATRIAL FIBRILLATION cont PO Lopressor Coumadin was on hold due to surgery will D/w Vascular surgery regarding safely to resume Coumadin post op CODE STATUS DNR DISPOSITION: stable to be transferred to PCU social service consulted was at home prior to admission ,was independent in ADL;s will need rehab update given to son at bedside Contact : Son Mariusz Multani Terry Alvarez Vital Signs: Date Time Temp Pulse Resp B/P (MAP) Pulse Ox O2 Delivery O2 Flow Rate FiO2 11/29/16 12:00 37.1 60 19 152/76 (101) 95 Room Air 11/29/16 12:00 Room Air 11/29/16 08:00 36.8 68 22 153/69 (97) 94 Room Air 11/29/16 08:00 Room Air 11/29/16 05:01 86 18 158/72 (100) 96 Room Air 11/29/16 04:01 36.8 60 19 159/74 (102) 94 Room Air 11/29/16 04:00 Room Air 11/29/16 03:02 67 14 144/87 (106) 99 Nasal Cannula 2.0 11/29/16 02:01 58 15 148/80 (102) 99 Nasal Cannula 4.0 11/29/16 01:01 74 17 149/79 (102) 100 Nasal Cannula 4.0 11/29/16 00:01 4 Nasal Cannula 11/29/16 00:01 36.6 55 17 163/73 (103) 100 11/28/16 23:01 60 18 140/72 (94) 100 Nasal Cannula 4.0 11/28/16 22:01 61 17 145/73 (97) 93 Room Air 11/28/16 21:01 67 15 163/84 (110) 94 Room Air 11/28/16 20:08 36.7 98 19 142/77 (98) 93 Room Air 11/28/16 20:00 Room Air 11/28/16 19:02 92 20 136/81 (99) 93 Room Air 11/28/16 18:01 91 19 166/74 (104) 95 Room Air 11/28/16 17:02 81 21 163/75 (104) 91 Room Air 11/28/16 16:02 84 22 159/94 (115) 95 Room Air 11/28/16 16:00 Room Air Lab Results: Results Past 24 Hours Test 11/28/16 21:14 11/29/16 00:46 11/29/16 05:02 Range/Units Bedside Glucose 142 126 70-99 mg/dl White Blood Count 29.68 4.8-10.8 K/uL Red Blood Count 6.06 4.7-6.1 M/uL Hemoglobin 12.7 14.0-18.0 g/dL Hematocrit 42.1 42-52 % Mean Corpuscular Volume 69.5 80-100 fL Mean Corpuscular Hemoglobin 21.0 25-34 pg Mean Corpuscular Hemoglobin Concent 30.2 32-36 g/dl Platelet Count 997 130-400 K/uL Mean Platelet Volume 9.1 7.4-10.4 fL Neutrophils (%) (Auto) 86.8 % Lymphocytes (%) (Auto) 3.3 % Monocytes (%) (Auto) 8.2 % Eosinophils (%) (Auto) 0.0 % Basophils (%) (Auto) 0.1 % Neutrophils # (Auto) 25.79 1.4-6.5 K/uL Lymphocytes # (Auto) 0.97 1.2-3.4 K/uL Monocytes # (Auto) 2.42 0.11-0.59 K/uL Eosinophils # (Auto) 0.00 0-0.5 K/uL Basophils # (Auto) 0.02 0-0.2 K/uL RDW Standard Deviation 48.2 36.4-46.3 fL RDW Coefficient of Variation 19.8 11.5-14.5 % Immature Granulocyte % (Auto) 1.6 % Immature Granulocyte # (Auto) 0.48 0.00-0.02 K/uL Toxic Granulation 1+ Polychromasia 1+ Microcytosis PRESENT Ovalocytes 1+ Echinocytes 1+ Prothrombin Time 15.7 9.0-12.0 SECONDS Prothromb Time International Ratio 1.4 0.9-1.1 Sodium Level 144 136-145 mmol/L Potassium Level 4.4 3.5-5.1 mmol/L Chloride Level 113 98-107 mmol/L Carbon Dioxide Level 24 21-32 mmol/L Anion Gap 7.0 3-11 mmol/L Blood Urea Nitrogen 32 7-18 mg/dl Creatinine 1.60 0.60-1.40 mg/dl Est Creatinine Clear Calc Drug Dose 38.6 ml/min Estimated GFR () 48.1 Estimated GFR (Non- 41.5 BUN/Creatinine Ratio 20.2 10-20 Random Glucose 110 70-99 mg/dl Calcium Level 7.9 8.5-10.1 mg/dl
[2016-11-29] MEDS: FAMOTIDINE 20 MG TAB PO SCH (19:44)
[2016-11-30] VITALS (7 sets, daily range): BP systolic 135–166; BP diastolic 64–87; PULSE 60–118; TEMP 36.4–37.1; O2SAT 91–98
[2016-11-30] MEDS: LEVOTHYROXINE 100 MCG TAB PO SCH (04:59)
[2016-11-30 06:05] LABS: HEMATOCRIT 40.1 % (42-52); MEAN CELL VOLUME 69.5 fL (80-100); MEAN CORPUSCULAR HEMOGLOBIN 21.5 pg (25-34); MEAN CORPUSCULAR HGB CONC 30.9 g/dl (32-36); MEAN PLATELET VOLUME 9.2 fL (7.4-10.4); PLATELET COUNT 868 K/uL (130-400); RED BLOOD COUNT 5.77 M/uL (4.7-6.1); WHITE BLOOD COUNT 26.61 K/uL (4.8-10.8)
[2016-11-30 06:39] LABS: BUN/CREATININE RATIO 20.5 (10-20); CALCIUM 7.8 mg/dl (8.5-10.1); CREATININE 1.4 mg/dl (0.60-1.40)
[2016-11-30 06:57] LABS: ANISOCYTOSIS PRESENT; BASO % 0.1 %; BASO ABS # 0.02 K/uL (0-0.2); COMPLETE YES; ECHINOCYTES 1+; EOS % 0.2 %; IG% 1.3 %; LYMPH % 7.4 %; LYMPH ABS # 1.97 K/uL (1.2-3.4); MICROCYTOSIS PRESENT; MONO % 7.1 %; NEUT % 83.9 %; POIKILOCYTOSIS PRESENT; POLYCHROMASIA 1+
[2016-11-30] MEDS: METOPROLOL TARTRATE 50 MG TAB PO SCH ×2 (07:31→19:42)
[2016-11-30] MEDS: FAMOTIDINE 20 MG TAB PO SCH ×2 (07:31→19:43)
[2016-11-30] MEDS: MULTIVITAMIN TAB PO SCH (07:32)
[2016-11-30] MEDS: RISPERIDONE ODT 0.5MG PO PRN (07:32)
[2016-11-30] MEDS: RASPBERRY SYRUP 5 ML UDP PO SCH ×4 (07:33→19:43)
[2016-11-30] MEDS: VANCOMYCIN HCL 250 MG/5 ML SOLN PO SCH ×4 (07:34→19:41)
--- NOTE | 2016-11-30 09:36 | Progress Note ---
Progress Note Date of Service: Nov 30, 2016. Subjective No complaints of stump pain Problem List Medical Problems: (1) Cellulitis of right leg Status: Acute (2) Failure of outpatient treatment Status: Acute (3) Sepsis Status: Acute Objective Vital Signs Vital Signs Past 12 Hours Date Time Temp Pulse Resp B/P (MAP) Pulse Ox O2 Delivery O2 Flow Rate FiO2 11/30/16 07:28 36.7 65 18 143/64 (90) 96 Room Air 11/30/16 04:00 Room Air 11/30/16 03:15 36.8 88 16 166/79 (108) 92 Room Air 11/30/16 00:05 36.8 63 20 135/71 (92) 91 Room Air 11/30/16 00:00 Room Air Exam Awake and alert VSS Afebrile Stump incision dry and clean. Laboratory and Microbiology Results Past 24 Hours Test 11/30/16 05:40 Range/Units White Blood Count 26.61 4.8-10.8 K/uL Red Blood Count 5.77 4.7-6.1 M/uL Hemoglobin 12.4 14.0-18.0 g/dL Hematocrit 40.1 42-52 % Mean Corpuscular Volume 69.5 80-100 fL Mean Corpuscular Hemoglobin 21.5 25-34 pg Mean Corpuscular Hemoglobin Concent 30.9 32-36 g/dl Platelet Count 868 130-400 K/uL Mean Platelet Volume 9.2 7.4-10.4 fL Neutrophils (%) (Auto) 83.9 % Lymphocytes (%) (Auto) 7.4 % Monocytes (%) (Auto) 7.1 % Eosinophils (%) (Auto) 0.2 % Basophils (%) (Auto) 0.1 % Neutrophils # (Auto) 22.32 1.4-6.5 K/uL Lymphocytes # (Auto) 1.97 1.2-3.4 K/uL Monocytes # (Auto) 1.90 0.11-0.59 K/uL Eosinophils # (Auto) 0.06 0-0.5 K/uL Basophils # (Auto) 0.02 0-0.2 K/uL RDW Standard Deviation 49.0 36.4-46.3 fL RDW Coefficient of Variation 20.2 11.5-14.5 % Immature Granulocyte % (Auto) 1.3 % Immature Granulocyte # (Auto) 0.34 0.00-0.02 K/uL Polychromasia 1+ Poikilocytosis PRESENT Anisocytosis PRESENT Microcytosis PRESENT Echinocytes 1+ Sodium Level 145 136-145 mmol/L Potassium Level 4.0 3.5-5.1 mmol/L Chloride Level 115 98-107 mmol/L Carbon Dioxide Level 23 21-32 mmol/L Anion Gap 7.0 3-11 mmol/L Blood Urea Nitrogen 29 7-18 mg/dl Creatinine 1.40 0.60-1.40 mg/dl Est Creatinine Clear Calc Drug Dose 43.2 ml/min Estimated GFR () 56.6 Estimated GFR (Non- 48.8 BUN/Creatinine Ratio 20.5 10-20 Random Glucose 85 70-99 mg/dl Calcium Level 7.8 8.5-10.1 mg/dl Imp: Post right AKA Plan: Looking much better. Stump looks good. GFR much better. Doing well. Consider rehab
[2016-11-30] MEDS ORDERED: NURSING VERBAL MED ORDER ONE (10:15)
--- NOTE | 2016-11-30 11:11 | Nephrology Progress Note ---
Nephrology Progress Note Date of Service Nov 30, 2016. Chief Complaint KARINA/CKD Subjective No acute events overnight. Mr. Martin was sleeping comfortably in bed this morning. He does not have significant pain. Recovery is expedient. Appetite good. Review of Systems A complete review of systems was performed. Pertinent positives are noted above. All other systems are negative. Vital Signs Last 8 Hrs Date Time Temp Pulse Resp B/P (MAP) Pulse Ox O2 Delivery O2 Flow Rate FiO2 11/30/16 10:41 36.9 60 19 146/68 (94) 96 Room Air 11/30/16 08:00 Room Air 11/30/16 07:28 36.7 65 18 143/64 (90) 96 Room Air 11/30/16 04:00 Room Air 11/30/16 03:15 36.8 88 16 166/79 (108) 92 Room Air Last Recorded Weight Weight (Kilograms): 67.000 Physical Exam General Appearance: WD/WN, no apparent distress Head: normocephalic, atraumatic Eyes: normal inspection, sclerae normal ENT: normal ENT inspection, pharynx normal Neck: supple, no JVD Respiratory/Chest: lungs clear, no respiratory distress, no accessory muscle use Cardiovascular: regular rate, rhythm, no gallop, no murmur Abdomen/GI: non tender, soft Genitourinary - Male: + pertinent finding (Carmichael draining yellow urine) Extremities/Musculoskelatal: normal inspection, no pedal edema Neurologic/Psych: alert, normal mood/affect Family History Buerger's disease FATHER Hypertension Kidney disease SISTER Kidney stones Social History Smokeless Tobacco Use: No Alcohol Use: none Drug Use: none Marital Status: Housing Status: lives with significant other 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) Laboratory Results Past 24 Hours 11/30/16 05:40 Red Blood Count 5.77, Mean Corpuscular Volume 69.5, Mean Corpuscular Hemoglobin 21.5, Mean Corpuscular Hemoglobin Concent 30.9, Mean Platelet Volume 9.2, Neutrophils (%) (Auto) 83.9, Lymphocytes (%) (Auto) 7.4, Monocytes (%) (Auto) 7.1, Eosinophils (%) (Auto) 0.2, Basophils (%) (Auto) 0.1, Neutrophils # (Auto) 22.32, Lymphocytes # (Auto) 1.97, Monocytes # (Auto) 1.90, Eosinophils # (Auto) 0.06, Basophils # (Auto) 0.02 11/30/16 05:40 Test 11/30/16 05:40 White Blood Count 26.61 K/uL (4.8-10.8) Red Blood Count 5.77 M/uL (4.7-6.1) Hemoglobin 12.4 g/dL (14.0-18.0) Hematocrit 40.1 % (42-52) Mean Corpuscular Volume 69.5 fL (80-100) Mean Corpuscular Hemoglobin 21.5 pg (25-34) Mean Corpuscular Hemoglobin Concent 30.9 g/dl (32-36) Platelet Count 868 K/uL (130-400) Mean Platelet Volume 9.2 fL (7.4-10.4) Neutrophils (%) (Auto) 83.9 % Lymphocytes (%) (Auto) 7.4 % Monocytes (%) (Auto) 7.1 % Eosinophils (%) (Auto) 0.2 % Basophils (%) (Auto) 0.1 % Neutrophils # (Auto) 22.32 K/uL (1.4-6.5) Lymphocytes # (Auto) 1.97 K/uL (1.2-3.4) Monocytes # (Auto) 1.90 K/uL (0.11-0.59) Eosinophils # (Auto) 0.06 K/uL (0-0.5) Basophils # (Auto) 0.02 K/uL (0-0.2) RDW Standard Deviation 49.0 fL (36.4-46.3) RDW Coefficient of Variation 20.2 % (11.5-14.5) Immature Granulocyte % (Auto) 1.3 % Immature Granulocyte # (Auto) 0.34 K/uL (0.00-0.02) Polychromasia 1+ Poikilocytosis PRESENT Anisocytosis PRESENT Microcytosis PRESENT Echinocytes 1+ Anion Gap 7.0 mmol/L (3-11) Est Creatinine Clear Calc Drug Dose 43.2 ml/min Estimated GFR () 56.6 Estimated GFR (Non- 48.8 BUN/Creatinine Ratio 20.5 (10-20) Calcium Level 7.8 mg/dl (8.5-10.1) Allergies Coded Allergies: Iodinated Diagnostic Agents (Unverified Allergy, Unknown, ., 11/24/16) Medications Current Inpatient Medications Medications (Trade) Dose Ordered Sig/Greg Route Start Time Stop Time Status Last Admin Dose Admin Heparin Sodium (Porcine) (Heparin Sq 5000 Unit/0.5ml) 5,000 unit Q8 SQ 11/24/16 22:00 12/24/16 21:59 Future Hold 11/27/16 06:17 5,000 UNIT Acetaminophen (Tylenol Tab) 650 mg Q4H PRN PO 11/24/16 15:15 12/24/16 15:14 11/25/16 14:39 650 MG Ondansetron HCl (Zofran Inj) 4 mg Q6H PRN IV 11/24/16 15:15 12/24/16 15:14 Levothyroxine Sodium (Synthroid Tab) 100 mcg DAILYBB PO 11/25/16 06:00 12/25/16 06:59 11/30/16 04:59 100 MCG Multivitamins (Multivitamin Tab) 1 tab DAILY PO 11/25/16 09:00 12/25/16 08:59 11/30/16 07:32 1 TAB Metoprolol Tartrate (Lopressor Iv) 5 mg Q6 PRN IV 11/25/16 20:00 12/25/16 19:59 11/26/16 05:21 5 MG Gadobutrol (Gadavist) 6 mmol UD PRN IV 11/26/16 22:30 11/30/16 22:29 Metoprolol Tartrate (Lopressor Tab) 50 mg BID PO 11/27/16 09:00 12/26/16 20:59 11/30/16 07:31 50 MG Risperidone (Risperdal M Tab) 0.5 mg Q6 PRN PO 11/27/16 19:45 12/27/16 19:44 11/30/16 07:32 0.5 MG Vancomycin HCl (Vancomycin Oral Soln) 250 mg QID PO 11/27/16 22:15 12/07/16 22:14 11/30/16 07:34 250 MG Raspberry (Raspberry Syrup 5ml Cup) 5 ml QID PO 11/27/16 22:15 12/11/16 22:14 11/30/16 07:33 5 ML Oxycodone/ Acetaminophen (Percocet 5-325mg Tab) 1 tab Q4H PRN PO 11/28/16 11:15 12/12/16 11:14 11/29/16 17:07 1 TAB Prednisone (PredniSONE TAB) 40 mg DAILY PO 11/29/16 09:00 12/02/16 08:59 11/30/16 09:22 40 MG Famotidine (Pepcid Tab) 20 mg BID PO 11/29/16 21:00 12/29/16 20:59 11/30/16 07:31 20 MG Diphenhydramine HCl (Benadryl Cap) 25 mg BID PO 11/29/16 21:00 12/29/16 20:59 11/30/16 07:32 25 MG Polyethylene (Miralax Powder Packet) 17 gm DAILY PRN PO 11/29/16 09:15 12/29/16 09:14 Menthol/Zinc Oxide (Calmoseptine Oint) 1 appln BID PRN EXT 11/30/16 10:30 12/30/16 10:29 Impression (1) Acute renal insufficiency (2) Vascular disease Rangel is a 76-year-old male with peripheral vascular disease, history of L AKA, hypertension, history of small cell lung cancer treated with XRT and now new evidence of metastatic disease. He admitted to the hospital with right lower extremity cellulitis and ischemia. He is POD# 2 s/p R AKA. Rangel developed KARINA during his hospitalization. This is felt to have been hemodynamically mediated and consistent with prerenal azotemia. Creatinine was 2.5 on admission and has improved to 1.4 mg/dL. UA unremarkable. Recommendations -- Renal function stable -- Electrolyte and volume status are acceptable, will monitor with daily renal panel -- Continue metoprolol to 50 twice a day -- Continue to hold losartan and Lasix -- Medications are appropriate for renal function -- Carmichael may be discontinued per nursing protocol
[2016-11-30] MEDS: MENTHOL-ZINC OXIDE 360 APPLN/120 GM TUBE EXT PRN (13:33)
--- NOTE | 2016-11-30 17:36 | Progress Note ---
Internal Med Progress Note Date of Service: Nov 30, 2016. Provider Documentation: SUBJECTIVE: remains stable afebrile no confusion or agitation noted OBJECTIVE: Vital Signs-as noted below Exam: General-awake and alert, no sign of distress Eyes-sclera non icteric Neck-NAD Lungs- diminished Heart-regular Abdomen-soft, Extremities- left BKA , S/P rt BKA -stump is well healing Neuro-confused , Lab data as noted below. ASSESSMENT & PLAN: SEVERE SEPSIS resolved due to necrotic /ischemic rt lower limbs /C diff colitis admitted with leukocytosis (WBC 23K, was 16.9 on 11/03/16), + tachycardia, afebrile, no hypotension, POC lactate 2.44 s/p angiogram of rt lower ext : no vascular flow below rt Profunda femoris artery , recommend rt lower ext amputation S/P RT AKA by Dr Gallegos on 11/28/16 tolerated the procedure well , vital remains stable post ,op will D/c Abx -post amputation of ischemic limb .C diff colitis clinically improving SEVERE PERIPHERAL VASCULAR DISEASE RLE Doppler showed age indeterminate occlusion of superficial femoral artery, extensive atherosclerotic plaque within RLE, hemodynamically significant stenosis of the right common femoral artery Consulted vascular surgery- Dr. Gallegos appreciate consult s/p angiogram of rt lower ext shows total occlusion of vessels /no flow beyond profunda femoris artery rt great foot and toe developed progressive ischemic change S/P AKA of rt lower limb by Dr Gallegos H&H /vitals remains stable post op pt will need rehab post discharge form [facility] C. DIFF COLITIS : has been on broad spectrum abx due to above started on PO vancomycin -will need 10 days course contact isolation DIFFUSE RASH /NECK SWELLING /ALLERGIC REACTION TO CONTRAST DYE ; resolved with steroids and H1/H2 jose developed after angiogram /pt was pre medicated prior to study -noted to have allergy to contrast dye on PO Prednisone now day #3 total 3 days of tx should be sufficient as rash and swelling has improved markedly THROMBOCYTOSIS markedly elevated platelet count > 900 K due to severe sepsis ? high risk for thrombosis /DIC follow CBC daily DELIRIUM /CONFUSION : RESOLVED metabolic encephalopathy due to above MRI of brain combo shows no metastatic process ( lung CA with mets ) delirium resolved after amputation of ischemic limb awake and alert, no agitation or confusion able to have appropriate conversation mental status improved to baseline KARINA on CKD stage 3 : Creatinine improved 2.5 -> 1.9 -> 1.6 -> 1.8 -. 1.6 ( approx baseline ) D/c IV fluids ( pt is tolerating oral intake well ) follow PRP tomorrow cont to Hold Losartan and Lasix nephrology consulted -appreciate input HISTORY OF LUNG CANCER S/p radiation July 2013 CXR shows multiple lung nodules, ?metastatic appreciate Consult from pulmonology CT chest shows : Spiculated 5.2 cm mass in the right upper lobe with extension to the right hilum highly concerning for primary bronchogenic carcinoma. Cavitary 2.5 cm nodule in the right lower lobe is concerning for regional metastatic disease. report of CT Chest updated to pt and family MRI of brain combo ordered show now intracranial mets poor prognosis for aggressive lung malignancy PAROXYSMAL ATRIAL FIBRILLATION cont PO Lopressor Coumadin was on hold due to surgery will D/w Vascular surgery regarding safely to resume Coumadin post op CODE STATUS DNR DISPOSITION: social service consulted was at home prior to admission ,was independent in ADL;s will need rehab Contact : Son Mariusz Multani Terry Alvarez Vital Signs: Date Time Temp Pulse Resp B/P (MAP) Pulse Ox O2 Delivery O2 Flow Rate FiO2 12/01/16 20:00 Room Air 12/01/16 19:53 36.7 63 20 152/69 (96) 95 Room Air 12/01/16 16:00 Room Air 12/01/16 15:42 37.0 59 18 171/84 (113) 95 Room Air 12/01/16 12:20 Room Air 12/01/16 11:18 37.0 60 18 164/68 (100) 97 Room Air 12/01/16 08:00 Room Air 12/01/16 07:26 36.4 54 18 164/68 (100) 98 Room Air 12/01/16 04:00 Room Air 12/01/16 03:48 36.4 60 16 159/71 (100) 99 Room Air 12/01/16 00:00 Room Air Lab Results: Results Past 24 Hours Test 12/01/16 05:23 Range/Units Prothrombin Time 13.0 9.0-12.0 SECONDS Prothromb Time International Ratio 1.2 0.9-1.1
[2016-11-30] MEDS ORDERED: VANCOMYCIN TROUGH SCH (21:30)
[2016-12-01 03:48] VITALS: BP 159/71; PULSE 60; TEMP 36.4; O2SAT 99
[2016-12-01] MEDS: OXYCODONE/ACETAMINOPHEN 5-325 TAB PO PRN ×3 (03:57→16:51)
[2016-12-01] MEDS: LEVOTHYROXINE 100 MCG TAB PO SCH (05:08)
[2016-12-01 06:40] LABS: INR 1.2 (0.9-1.1)
[2016-12-01 07:26] VITALS: BP 164/68; PULSE 54; TEMP 36.4; O2SAT 98
--- NOTE | 2016-12-01 07:36 | Anesthesiology Progress Note ---
Anesthesia Post Op Note Date & Time Dec 01, 2016 at 07:36 Vital Signs Vital Signs Past 12 Hours Date Time Temp Pulse Resp B/P (MAP) Pulse Ox O2 Delivery O2 Flow Rate FiO2 12/01/16 07:26 36.4 54 18 164/68 (100) 98 Room Air 12/01/16 04:00 Room Air 12/01/16 03:48 36.4 60 16 159/71 (100) 99 Room Air 12/01/16 00:00 Room Air 11/30/16 23:23 36.4 100 18 153/74 (100) 96 Room Air 11/30/16 20:00 Room Air Notes Mental Status: alert / awake / arousable, participated in evaluation Pt Amnestic to Procedure: Yes Nausea / Vomiting: adequately controlled Pain: adequately controlled Airway Patency, RR, SpO2: stable & adequate BP & HR: stable & adequate Hydration State: stable & adequate Anesthetic Complications: no major complications apparent
[2016-12-01] MEDS: RASPBERRY SYRUP 5 ML UDP PO SCH ×4 (07:40→19:57)
[2016-12-01] MEDS: VANCOMYCIN HCL 250 MG/5 ML SOLN PO SCH ×4 (07:40→19:57)
[2016-12-01] MEDS: METOPROLOL TARTRATE 50 MG TAB PO SCH ×2 (07:40→19:57)
[2016-12-01] MEDS: MULTIVITAMIN TAB PO SCH (07:41)
[2016-12-01] MEDS: FAMOTIDINE 20 MG TAB PO SCH ×2 (07:41→19:58)
--- NOTE | 2016-12-01 09:04 | Nephrology Progress Note ---
Nephrology Progress Note Date of Service Dec 01, 2016. Chief Complaint KARINA/CKD Subjective No acute events overnight. Mr. Multani was resting comfortably in bed this morning. He reports appropriate pain control. Appetite is good. No fevers or chills. He is reticent to remove the Carmichael catheter at this time. Review of Systems A complete review of systems was performed. Pertinent positives are noted above. All other systems are negative. Vital Signs Last 8 Hrs Date Time Temp Pulse Resp B/P (MAP) Pulse Ox O2 Delivery O2 Flow Rate FiO2 12/01/16 08:00 Room Air 12/01/16 07:26 36.4 54 18 164/68 (100) 98 Room Air 12/01/16 04:00 Room Air 12/01/16 03:48 36.4 60 16 159/71 (100) 99 Room Air Last Recorded Weight Weight (Kilograms): 64.500 Physical Exam General Appearance: WD/WN, no apparent distress Head: normocephalic, atraumatic Eyes: normal inspection, sclerae normal ENT: normal ENT inspection, pharynx normal Neck: supple, no JVD Respiratory/Chest: lungs clear, no respiratory distress, no accessory muscle use Cardiovascular: regular rate, rhythm, no gallop Abdomen/GI: non tender, soft Genitourinary - Male: + pertinent finding (Carmichael draining yellow urine) Extremities/Musculoskelatal: + pertinent finding (BL AKA with dressing CDI to right stump) Neurologic/Psych: alert, normal mood/affect Family History Buerger's disease FATHER Hypertension Kidney disease SISTER Kidney stones Social History Smokeless Tobacco Use: No Alcohol Use: none Drug Use: none Marital Status: Housing Status: lives with significant other 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) Laboratory Results Past 24 Hours Test 12/01/16 05:23 Prothrombin Time 13.0 SECONDS (9.0-12.0) Prothromb Time International Ratio 1.2 (0.9-1.1) Allergies Coded Allergies: Iodinated Diagnostic Agents (Unverified Allergy, Unknown, ., 11/24/16) Medications Current Inpatient Medications Medications (Trade) Dose Ordered Sig/Greg Route Start Time Stop Time Status Last Admin Dose Admin Heparin Sodium (Porcine) (Heparin Sq 5000 Unit/0.5ml) 5,000 unit Q8 SQ 11/24/16 22:00 12/24/16 21:59 Future Hold 11/27/16 06:17 5,000 UNIT Acetaminophen (Tylenol Tab) 650 mg Q4H PRN PO 11/24/16 15:15 12/24/16 15:14 11/25/16 14:39 650 MG Ondansetron HCl (Zofran Inj) 4 mg Q6H PRN IV 11/24/16 15:15 12/24/16 15:14 Levothyroxine Sodium (Synthroid Tab) 100 mcg DAILYBB PO 11/25/16 06:00 12/25/16 06:59 11/30/16 04:59 100 MCG Multivitamins (Multivitamin Tab) 1 tab DAILY PO 11/25/16 09:00 12/25/16 08:59 12/01/16 07:41 1 TAB Metoprolol Tartrate (Lopressor Iv) 5 mg Q6 PRN IV 11/25/16 20:00 12/25/16 19:59 11/26/16 05:21 5 MG Metoprolol Tartrate (Lopressor Tab) 50 mg BID PO 11/27/16 09:00 12/26/16 20:59 12/01/16 07:40 50 MG Risperidone (Risperdal M Tab) 0.5 mg Q6 PRN PO 11/27/16 19:45 12/27/16 19:44 11/30/16 07:32 0.5 MG Vancomycin HCl (Vancomycin Oral Soln) 250 mg QID PO 11/27/16 22:15 12/07/16 22:14 12/01/16 07:40 250 MG Raspberry (Raspberry Syrup 5ml Cup) 5 ml QID PO 11/27/16 22:15 12/11/16 22:14 12/01/16 07:40 5 ML Oxycodone/ Acetaminophen (Percocet 5-325mg Tab) 1 tab Q4H PRN PO 11/28/16 11:15 12/12/16 11:14 11/29/16 17:07 1 TAB Prednisone (PredniSONE TAB) 40 mg DAILY PO 11/29/16 09:00 12/02/16 08:59 12/01/16 07:41 40 MG Famotidine (Pepcid Tab) 20 mg BID PO 11/29/16 21:00 12/29/16 20:59 12/01/16 07:41 20 MG Diphenhydramine HCl (Benadryl Cap) 25 mg BID PO 11/29/16 21:00 12/29/16 20:59 12/01/16 07:41 25 MG Polyethylene (Miralax Powder Packet) 17 gm DAILY PRN PO 11/29/16 09:15 12/29/16 09:14 Menthol/Zinc Oxide (Calmoseptine Oint) 1 appln BID PRN EXT 11/30/16 10:30 12/30/16 10:29 11/30/16 13:33 1 APPLN Impression (1) Acute renal insufficiency (2) Vascular disease Rangel is a 76-year-old male with peripheral vascular disease, history of L AKA, hypertension, history of small cell lung cancer treated with XRT and now new evidence of metastatic disease. He admitted to the hospital with right lower extremity cellulitis and ischemia. He is POD# 3 s/p R AKA. Rangel developed KARINA during his hospitalization. This is felt to have been hemodynamically mediated and consistent with prerenal azotemia. Creatinine was 2.5 on admission and has improved to 1.4 mg/dL. UA unremarkable. Recommendations -- Repeat renal profile tomorrow AM -- Blood pressure and volume status are acceptable -- Continue metoprolol 50 twice a day -- Continue to hold losartan and Lasix -- Medications are appropriate for renal function -- Carmichael may be discontinued when acceptable per nursing protocol
[2016-12-01 11:18] VITALS: BP 164/68; PULSE 60; TEMP 37; O2SAT 97
--- NOTE | 2016-12-01 11:18 | Progress Note ---
Progress Note Date of Service: Dec 01, 2016. Subjective 76 yo m with multiple medical problems, POD #3 after RLE AKA d/t ischemic RLE. Pt admits mild discomfort in RLE, rates pain 5/10. Denies any other concerns. Problem List Medical Problems: (1) Cellulitis of right leg Status: Acute (2) Failure of outpatient treatment Status: Acute (3) Sepsis Status: Acute Objective Vital Signs Vital Signs Past 12 Hours Date Time Temp Pulse Resp B/P (MAP) Pulse Ox O2 Delivery O2 Flow Rate FiO2 12/01/16 08:00 Room Air 12/01/16 07:26 36.4 54 18 164/68 (100) 98 Room Air 12/01/16 04:00 Room Air 12/01/16 03:48 36.4 60 16 159/71 (100) 99 Room Air 12/01/16 00:00 Room Air 11/30/16 23:23 36.4 100 18 153/74 (100) 96 Room Air Exam CONST: A&O x2, NAD, chronically ill appearing. Less confused than last week, color improved EXT: RLE AKA site intact with aayush. Mild dark bloody drainage on dressing, nothing active when dressing removed. + local tenderness and edema. No erythema or ecchymosis noted. Laboratory and Microbiology Results Past 24 Hours Test 12/01/16 05:23 Range/Units Prothrombin Time 13.0 9.0-12.0 SECONDS Prothromb Time International Ratio 1.2 0.9-1.1 ASSESSMENT and PLAN: s/p RLE AKA Ischemic RLE Pt doing well postop. May require light gauze dressing when moving out of bed, otherwise needs to be open to air. Ok for d/c from vascular standpoint. Will see in office in 2 wks for staple removal.
[2016-12-01 15:42] VITALS: BP 171/84; PULSE 59; TEMP 37; O2SAT 95
[2016-12-01 19:53] VITALS: BP 152/69; PULSE 63; TEMP 36.7; O2SAT 95
--- NOTE | 2016-12-01 22:46 | Progress Note ---
Internal Med Progress Note Date of Service: Dec 01, 2016. Provider Documentation: SUBJECTIVE: remains comfortably in bed conversing appropriately no complain of pain or discomfort OBJECTIVE: Vital Signs-as noted below Exam: General-awake and alert, no sign of distress Eyes-sclera non icteric Neck-NAD Lungs- diminished Heart-regular Abdomen-soft, Extremities- left BKA , S/P recent rt BKA stump well healed , aayush present Neuro-confused , Lab data as noted below. ASSESSMENT & PLAN: SEVERE SEPSIS due to necrotic /ischemic rt lower limbs /C diff colitis admitted with leukocytosis (WBC 23K, was 16.9 on 11/03/16), + tachycardia, afebrile, no hypotension, POC lactate 2.44 s/p angiogram of rt lower ext : no vascular flow below rt Profunda femoris artery , recommend rt lower ext amputation S/P RT AKA by Dr Gallegos on 11/28/16 tolerated the procedure well , vital remains stable post ,op SEVERE PERIPHERAL VASCULAR DISEASE RLE Doppler showed age indeterminate occlusion of superficial femoral artery, extensive atherosclerotic plaque within RLE, hemodynamically significant stenosis of the right common femoral artery Consulted vascular surgery- Dr. Gallegos appreciate consult s/p angiogram of rt lower ext shows total occlusion of vessels /no flow beyond profunda femoris artery rt great foot and toe developed progressive ischemic change S/P AKA of rt lower limb by Dr Gallegos H&H /vitals remains stable post op pt will need rehab post discharge form [facility] referral made to [facility] C. DIFF COLITIS : has been on broad spectrum abx due to above started on PO vancomycin -will need 10 days course contact isolation DIFFUSE RASH /NECK SWELLING /ALLERGIC REACTION TO CONTRAST DYE ; resolved with steroids and H1/H2 jose developed after angiogram /pt was pre medicated prior to study -noted to have allergy to contrast dye on PO Prednisone now day # 3 prednisone /Benadryl D/chilo THROMBOCYTOSIS markedly elevated platelet count > 900 K high risk for thrombosis /DIC follow CBC daily will benefit with peripheral blood smear and Heme onc consult if no improvement MARKED LEUKOCYTOSIS : due to C diff ? was on Prednisone briefly for contrast dye allergy prednisone d/chilo follow CBC will benefit with peripheral blood smear and Heme onc consult if no improvement DELIRIUM /CONFUSION : RESOLVED metabolic encephalopathy due to above MRI of brain combo shows no metastatic process ( lung CA with mets ) delirium resolved after amputation of ischemic limb awake and alert, no agitation or confusion able to have appropriate conversation mental status improved to baseline KARINA on CKD stage 3 : Creatinine improved 2.5 -> 1.9 -> 1.6 -> 1.8 -. 1.6 -> 1.4 ( approx baseline ) D/c IV fluids ( pt is tolerating oral intake well ) follow PRP tomorrow cont to Hold Losartan and Lasix nephrology consulted -appreciate input HISTORY OF LUNG CANCER S/p radiation July 2013 CXR shows multiple lung nodules, ?metastatic appreciate Consult from pulmonology CT chest shows : Spiculated 5.2 cm mass in the right upper lobe with extension to the right hilum highly concerning for primary bronchogenic carcinoma. Cavitary 2.5 cm nodule in the right lower lobe is concerning for regional metastatic disease. report of CT Chest updated to pt and family MRI of brain combo ordered show now intracranial mets poor prognosis for aggressive lung malignancy PAROXYSMAL ATRIAL FIBRILLATION cont PO Lopressor Coumadin was on hold for surgical procedure will need to D/w Dr Irving to safely resume anticoagulation for stroke prophylaxis CODE STATUS DNR DISPOSITION: social service consulted was at home prior to admission ,was independent in ADL;s will need rehab -bilateral amputation referral made to [facility] Contact : Son Mariusz Multani Terry Alvarez Vital Signs: Date Time Temp Pulse Resp B/P (MAP) Pulse Ox O2 Delivery O2 Flow Rate FiO2 12/02/16 08:06 37.1 88 20 148/66 (93) 98 Room Air 12/02/16 04:09 36.8 89 20 149/63 (91) 97 Room Air 12/02/16 04:00 Room Air 12/02/16 00:00 Room Air 12/01/16 23:17 36.8 62 20 152/61 (91) 97 12/01/16 20:00 Room Air 12/01/16 19:53 36.7 63 20 152/69 (96) 95 Room Air 12/01/16 16:00 Room Air 12/01/16 15:42 37.0 59 18 171/84 (113) 95 Room Air 12/01/16 12:20 Room Air 12/01/16 11:18 37.0 60 18 164/68 (100) 97 Room Air Lab Results: Results Past 24 Hours Test 12/02/16 06:19 Range/Units White Blood Count 37.75 4.8-10.8 K/uL Red Blood Count 5.77 4.7-6.1 M/uL Hemoglobin 12.2 14.0-18.0 g/dL Hematocrit 40.3 42-52 % Mean Corpuscular Volume 69.8 80-100 fL Mean Corpuscular Hemoglobin 21.1 25-34 pg Mean Corpuscular Hemoglobin Concent 30.3 32-36 g/dl RDW Standard Deviation 49.4 36.4-46.3 fL RDW Coefficient of Variation 20.5 11.5-14.5 % Platelet Count 962 130-400 K/uL Mean Platelet Volume 9.5 7.4-10.4 fL Sodium Level 146 136-145 mmol/L Potassium Level 3.5 3.5-5.1 mmol/L Chloride Level 113 98-107 mmol/L Carbon Dioxide Level 22 21-32 mmol/L Anion Gap 11.0 3-11 mmol/L Blood Urea Nitrogen 21 7-18 mg/dl Creatinine 1.30 0.60-1.40 mg/dl Est Creatinine Clear Calc Drug Dose 46.5 ml/min Estimated GFR () 61.9 Estimated GFR (Non- 53.4 BUN/Creatinine Ratio 15.9 10-20 Random Glucose 106 70-99 mg/dl Calcium Level 8.0 8.5-10.1 mg/dl Phosphorus Level 1.7 2.5-4.9 mg/dl Albumin 2.5 3.4-5.0 gm/dl
[2016-12-01 23:17] VITALS: BP 152/61; PULSE 62; TEMP 36.8; O2SAT 97
[2016-12-02] VITALS (8 sets, daily range): BP systolic 148–178; BP diastolic 63–89; PULSE 57–98; TEMP 36.7–37.1; O2SAT 95–98
[2016-12-02] MEDS: LEVOTHYROXINE 100 MCG TAB PO SCH (05:15)
[2016-12-02 06:58] LABS: HEMATOCRIT 40.3 % (42-52); MEAN CELL VOLUME 69.8 fL (80-100); MEAN CORPUSCULAR HEMOGLOBIN 21.1 pg (25-34); MEAN CORPUSCULAR HGB CONC 30.3 g/dl (32-36); MEAN PLATELET VOLUME 9.5 fL (7.4-10.4); PLATELET COUNT 962 K/uL (130-400); RED BLOOD COUNT 5.77 M/uL (4.7-6.1); WHITE BLOOD COUNT 37.75 K/uL (4.8-10.8)
[2016-12-02 07:14] LABS: BUN/CREATININE RATIO 15.9 (10-20); CREATININE 1.3 mg/dl (0.60-1.40); PHOSPHORUS 1.7 mg/dl (2.5-4.9); POTASSIUM 3.5 mmol/L (3.5-5.1)
[2016-12-02] MEDS: MULTIVITAMIN TAB PO SCH (08:21)
[2016-12-02] MEDS: VANCOMYCIN HCL 250 MG/5 ML SOLN PO SCH ×4 (08:21→20:07)
[2016-12-02] MEDS: RASPBERRY SYRUP 5 ML UDP PO SCH ×4 (08:21→20:07)
[2016-12-02] MEDS: METOPROLOL TARTRATE 50 MG TAB PO SCH ×2 (08:21→20:07)
[2016-12-02] MEDS: OXYCODONE/ACETAMINOPHEN 5-325 TAB PO PRN (08:38)
[2016-12-02] MEDS ORDERED: MRLP17X PO (08:56)
[2016-12-02] MEDS ORDERED: METO50TA16 PO (08:56)
[2016-12-02] MEDS ORDERED: POTASSIUM CHLORIDE 10 MEQ TABCR PO ONE (10:30)
[2016-12-02] MEDS ORDERED: SODIUM PHOSPHATE 3 MMOL/1 ML INFUSION IV ONE (10:30)
--- NOTE | 2016-12-02 10:40 | Progress Note ---
Progress Note Date of Service: Dec 02, 2016. Subjective 76 yo m with multiple medical problems, POD # 4 after RLE AKA, seen in f/u today. Pt admits pain controlled with medications. Denies any new complaints. Per RN, concerns for bleeding from surgical site. Problem List Medical Problems: (1) Cellulitis of right leg Status: Acute (2) Failure of outpatient treatment Status: Acute (3) Sepsis Status: Acute Objective Vital Signs Vital Signs Past 12 Hours Date Time Temp Pulse Resp B/P (MAP) Pulse Ox O2 Delivery O2 Flow Rate FiO2 12/02/16 08:06 37.1 88 20 148/66 (93) 98 Room Air 12/02/16 04:09 36.8 89 20 149/63 (91) 97 Room Air 12/02/16 04:00 Room Air 12/02/16 00:00 Room Air 12/01/16 23:17 36.8 62 20 152/61 (91) 97 Exam CONST: A&O x2, NAD, chronically ill appearing male EXT: RLE AKA site intact with aayush, mild dark red bloody/clotted drainage on dressing and expressable manually from post op hematoma. No necrosis or erythema noted. Laboratory and Microbiology Results Past 24 Hours Test 12/02/16 06:19 Range/Units White Blood Count 37.75 4.8-10.8 K/uL Red Blood Count 5.77 4.7-6.1 M/uL Hemoglobin 12.2 14.0-18.0 g/dL Hematocrit 40.3 42-52 % Mean Corpuscular Volume 69.8 80-100 fL Mean Corpuscular Hemoglobin 21.1 25-34 pg Mean Corpuscular Hemoglobin Concent 30.3 32-36 g/dl RDW Standard Deviation 49.4 36.4-46.3 fL RDW Coefficient of Variation 20.5 11.5-14.5 % Platelet Count 962 130-400 K/uL Mean Platelet Volume 9.5 7.4-10.4 fL Sodium Level 146 136-145 mmol/L Potassium Level 3.5 3.5-5.1 mmol/L Chloride Level 113 98-107 mmol/L Carbon Dioxide Level 22 21-32 mmol/L Anion Gap 11.0 3-11 mmol/L Blood Urea Nitrogen 21 7-18 mg/dl Creatinine 1.30 0.60-1.40 mg/dl Est Creatinine Clear Calc Drug Dose 46.5 ml/min Estimated GFR () 61.9 Estimated GFR (Non- 53.4 BUN/Creatinine Ratio 15.9 10-20 Random Glucose 106 70-99 mg/dl Calcium Level 8.0 8.5-10.1 mg/dl Phosphorus Level 1.7 2.5-4.9 mg/dl Albumin 2.5 3.4-5.0 gm/dl ASSESSMENT and PLAN: s/p RLE AKA Ischemia RLE Pt doing well post. Hgb stable at 12.2, drainage appears to be old blood/ hematoma. No active bleeding noted. OK to restart anticoagulation per medicine. Recommend daily dressing with dry gauze and kerlix. Will see in office in 2 weeks for staple removal. Ok for d/c from vascular standpoint.
--- NOTE | 2016-12-02 10:57 | Nephrology Progress Note ---
Nephrology Progress Note Date of Service Dec 02, 2016. Chief Complaint KARINA/CKD Subjective No acute events overnight. No complaints this morning. Denies pain. Breathing comfortably. Appetite good. No fevers or chills. Review of Systems A complete review of systems was performed. Pertinent positives are noted above. All other systems are negative. Vital Signs Last 8 Hrs Date Time Temp Pulse Resp B/P (MAP) Pulse Ox O2 Delivery O2 Flow Rate FiO2 12/02/16 10:52 Room Air 12/02/16 08:06 37.1 88 20 148/66 (93) 98 Room Air 12/02/16 04:09 36.8 89 20 149/63 (91) 97 Room Air 12/02/16 04:00 Room Air Last Recorded Weight Weight (Kilograms): 66.900 Physical Exam General Appearance: WD/WN, no apparent distress Head: normocephalic, atraumatic Eyes: normal inspection, sclerae normal ENT: normal ENT inspection, pharynx normal Neck: supple, no JVD Respiratory/Chest: lungs clear, no respiratory distress, no accessory muscle use Cardiovascular: regular rate, rhythm, no murmur Abdomen/GI: non tender, soft Extremities/Musculoskelatal: normal inspection, + pertinent finding (BL AKA, stump with dressing CDI) Neurologic/Psych: alert, oriented x 3 Family History Buerger's disease FATHER Hypertension Kidney disease SISTER Kidney stones Social History Smokeless Tobacco Use: No Alcohol Use: none Drug Use: none Marital Status: Housing Status: lives with significant other 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) Laboratory Results Past 24 Hours 12/02/16 06:19 12/02/16 06:19 Test 12/02/16 06:19 Red Blood Count 5.77 M/uL (4.7-6.1) Mean Corpuscular Volume 69.8 fL (80-100) Mean Corpuscular Hemoglobin 21.1 pg (25-34) Mean Corpuscular Hemoglobin Concent 30.3 g/dl (32-36) RDW Standard Deviation 49.4 fL (36.4-46.3) RDW Coefficient of Variation 20.5 % (11.5-14.5) Mean Platelet Volume 9.5 fL (7.4-10.4) Anion Gap 11.0 mmol/L (3-11) Est Creatinine Clear Calc Drug Dose 46.5 ml/min Estimated GFR () 61.9 Estimated GFR (Non- 53.4 BUN/Creatinine Ratio 15.9 (10-20) Calcium Level 8.0 mg/dl (8.5-10.1) Phosphorus Level 1.7 mg/dl (2.5-4.9) Albumin 2.5 gm/dl (3.4-5.0) Allergies Coded Allergies: Iodinated Diagnostic Agents (Unverified Allergy, Unknown, ., 11/24/16) Medications Current Inpatient Medications Medications (Trade) Dose Ordered Sig/Greg Route Start Time Stop Time Status Last Admin Dose Admin Acetaminophen (Tylenol Tab) 650 mg Q4H PRN PO 11/24/16 15:15 12/24/16 15:14 11/25/16 14:39 650 MG Ondansetron HCl (Zofran Inj) 4 mg Q6H PRN IV 11/24/16 15:15 12/24/16 15:14 Levothyroxine Sodium (Synthroid Tab) 100 mcg DAILYBB PO 11/25/16 06:00 12/25/16 06:59 12/02/16 05:15 100 MCG Multivitamins (Multivitamin Tab) 1 tab DAILY PO 11/25/16 09:00 12/25/16 08:59 12/02/16 08:21 1 TAB Metoprolol Tartrate (Lopressor Tab) 50 mg BID PO 11/27/16 09:00 12/26/16 20:59 12/02/16 08:21 50 MG Vancomycin HCl (Vancomycin Oral Soln) 250 mg QID PO 11/27/16 22:15 12/07/16 22:14 12/02/16 08:21 250 MG Raspberry (Raspberry Syrup 5ml Cup) 5 ml QID PO 11/27/16 22:15 12/11/16 22:14 12/02/16 08:21 5 ML Oxycodone/ Acetaminophen (Percocet 5-325mg Tab) 1 tab Q4H PRN PO 11/28/16 11:15 12/12/16 11:14 12/02/16 08:38 1 TAB Polyethylene (Miralax Powder Packet) 17 gm DAILY PRN PO 11/29/16 09:15 12/29/16 09:14 Menthol/Zinc Oxide (Calmoseptine Oint) 1 appln BID PRN EXT 11/30/16 10:30 12/30/16 10:29 11/30/16 13:33 1 APPLN Sodium Phosphate (Sodium Phosphate Replacement) 9 mmol ONE ONCE IV 12/02/16 10:30 12/02/16 10:31 UNV Warfarin Sodium (Coumadin Tab) 3 mg DAILY@16 PO 12/02/16 16:00 01/01/17 15:59 UNV Impression (1) Acute renal insufficiency (2) Vascular disease Rangel is a 76-year-old male with peripheral vascular disease, history of L AKA, hypertension, history of small cell lung cancer treated with XRT and now new evidence of metastatic disease. He admitted to the hospital with right lower extremity cellulitis and ischemia. He is POD# 4 s/p R AKA. Rangel developed KARINA during his hospitalization. This is felt to have been hemodynamically mediated and consistent with prerenal azotemia. Creatinine was 2.5 on admission and has improved to baseline. UA unremarkable. Recommendations -- Repeat renal profile tomorrow AM -- Blood pressure and volume status are acceptable -- Continue metoprolol 50 twice a day -- Continue to hold losartan and Lasix -- Medications are appropriate for renal function -- Carmichael may be discontinued when acceptable per nursing protocol -- Fluids provided and readily available at bedside, patient encouraged to drink to thirst
[2016-12-02] MEDS ORDERED: SODIUM PHOSPHATE INJ 9 MMOL in SODIUM CHLORIDE 0.9% 250ML 250 ML IV SCH (11:00)
--- NOTE | 2016-12-02 11:01 | Progress Note ---
Internal Med Progress Note Date of Service: Dec 02, 2016. Provider Documentation: SUBJECTIVE: Seen and examined at bedside Has minimal bleeding from surgical site Denies chest pain/SOB RLE pain is controlled Offers no other complaints OBJECTIVE: Vital Signs-as noted below Physical Exam: General Appearance:Moderately built and nourished, no apparent distress Head: normocephalic, Atraumatic Eyes: normal inspection, EOMI, PERRL Neck: supple, Trachea midline Respiratory/Chest: Normal breath sounds, CTA Cardiovascular: S1, S2, No murmur Abdomen/GI:Soft, Non tender, Bowel sounds present Extremities/Musculoskelatal: R AKA in aayush, LLE S/P amputation Neurologic/Psych:grossly no focal neurological deficits Skin: normal color, warm Lab data as noted below. ASSESSMENT & PLAN: SEVERE SEPSIS Likely sources: necrotic /ischemic rt lower limbs /C diff colitis Patient was admitted with leukocytosis, tachycardia, afebrile, no hypotension, POC lactate 2.44 s/p angiogram of rt lower ext : no vascular flow below rt Profunda femoris artery , recommend rt lower ext amputation S/P RT AKA by Dr Gallegos on 11/28/16 Appreciate vascular surgery Input Need to follow up with Vascular surgery as outpatient SEVERE PERIPHERAL VASCULAR DISEASE RLE Doppler showed age indeterminate occlusion of superficial femoral artery, extensive atherosclerotic plaque within RLE, hemodynamically significant stenosis of the right common femoral artery Appreciate vascular surgery- Dr. Gallegos help s/p angiogram of rt lower ext shows total occlusion of vessels /no flow beyond profunda femoris artery rt great foot and toe developed progressive ischemic change S/P AKA of RLE Dr Gallegos H&H /vitals remains stable post op Needs rehab placement Coumadin restarted today LEUKOLYSIS/THROMBOCYTOSIS: likely malignancy related Was also on prednisone briefly for allergic reaction to contrast dye Peripheral smear pending Heme Onch consulted C. DIFF COLITIS : has been on broad spectrum abx due to above Continue PO vancomycin Day 08/16 contact isolation Diarrhea resolved DIFFUSE RASH /NECK SWELLING /ALLERGIC REACTION TO CONTRAST DYE ; resolved with steroids and H1/H2 jose developed after angiogram /pt was pre medicated prior to study noted to have allergy to contrast dye prednisone /Benadryl D/chilo DELIRIUM /CONFUSION : Resolved Likely metabolic encephalopathy due to above MRI of brain combo shows no metastatic process delirium resolved after amputation of ischemic limb KARINA on CKD III : Creatinine improved 2.5 -> 1.9 -> 1.6 -> 1.8 -. 1.6 -> 1.4>> 1.3 ( approx baseline ) cont to Hold Losartan and Lasix for now Appreciate nephrology input HISTORY OF LUNG CANCER S/p radiation July 2013 CXR shows multiple lung nodules, ?metastatic appreciate Consult from pulmonology CT chest shows : Spiculated 5.2 cm mass in the right upper lobe with extension to the right hilum highly concerning for primary bronchogenic carcinoma. Cavitary 2.5 cm nodule in the right lower lobe is concerning for regional metastatic disease. report of CT Chest updated to pt and family MRI of brain combo ordered show no intracranial mets poor prognosis for aggressive lung malignancy Heme Onch consulted PAROXYSMAL ATRIAL FIBRILLATION continue PO Lopressor Coumadin restarted today Monitor INR CODE STATUS DNR DISPOSITION: social service consulted will need rehab:bilateral amputation Contact : Son Mariusz Multani Terry Alvarez Vital Signs: Date Time Temp Pulse Resp B/P (MAP) Pulse Ox O2 Delivery O2 Flow Rate FiO2 12/02/16 08:06 37.1 88 20 148/66 (93) 98 Room Air 12/02/16 04:09 36.8 89 20 149/63 (91) 97 Room Air 12/02/16 04:00 Room Air 12/02/16 00:00 Room Air 12/01/16 23:17 36.8 62 20 152/61 (91) 97 12/01/16 20:00 Room Air 12/01/16 19:53 36.7 63 20 152/69 (96) 95 Room Air 12/01/16 16:00 Room Air 12/01/16 15:42 37.0 59 18 171/84 (113) 95 Room Air 12/01/16 12:20 Room Air 12/01/16 11:18 37.0 60 18 164/68 (100) 97 Room Air Lab Results: Results Past 24 Hours Test 12/02/16 06:19 Range/Units White Blood Count 37.75 4.8-10.8 K/uL Red Blood Count 5.77 4.7-6.1 M/uL Hemoglobin 12.2 14.0-18.0 g/dL Hematocrit 40.3 42-52 % Mean Corpuscular Volume 69.8 80-100 fL Mean Corpuscular Hemoglobin 21.1 25-34 pg Mean Corpuscular Hemoglobin Concent 30.3 32-36 g/dl RDW Standard Deviation 49.4 36.4-46.3 fL RDW Coefficient of Variation 20.5 11.5-14.5 % Platelet Count 962 130-400 K/uL Mean Platelet Volume 9.5 7.4-10.4 fL Sodium Level 146 136-145 mmol/L Potassium Level 3.5 3.5-5.1 mmol/L Chloride Level 113 98-107 mmol/L Carbon Dioxide Level 22 21-32 mmol/L Anion Gap 11.0 3-11 mmol/L Blood Urea Nitrogen 21 7-18 mg/dl Creatinine 1.30 0.60-1.40 mg/dl Est Creatinine Clear Calc Drug Dose 46.5 ml/min Estimated GFR () 61.9 Estimated GFR (Non- 53.4 BUN/Creatinine Ratio 15.9 10-20 Random Glucose 106 70-99 mg/dl Calcium Level 8.0 8.5-10.1 mg/dl Phosphorus Level 1.7 2.5-4.9 mg/dl Albumin 2.5 3.4-5.0 gm/dl
[2016-12-02] MEDS: MENTHOL-ZINC OXIDE 360 APPLN/120 GM TUBE EXT PRN (14:58)
[2016-12-02] MEDS: WARFARIN SOD 3 MG TAB PO SCH (16:06)
[2016-12-02] MEDS ORDERED: TEMA30CA4 PO (17:12)
[2016-12-02] MEDS ORDERED: HYDR-4079 PO (17:12)
[2016-12-02] MEDS ORDERED: VNCS250 PO (17:12)
--- NOTE | 2016-12-02 17:50 | Medical Consult ---
Consultation Date of Consultation: Dec 02, 2016. Attending Physician: Nishant aRmírez MD History of Present Illness Hematology consult: Evaluation and management leukocytosis, thrombocytosis, no known case of lung cancer. Date of consultation: 12/02/[address] Kaur. Primary-care provider: Dr. Adams Amezcua. He is not a good historian, history obtained from the medical records and scanned documents. HPI: 71-year-old male, who came to [facility] ER on 2016 for infection involving the right leg, did not respond well with the Bactrim antibiotic, had also significant bleeding from the toe, Coumadin was on hold with improvement of bleeding at that time. Hospital course complicated by necrotic/ischemic right lower extremity and C difficile colitis, S/P right AKA by Dr. Gallegos on 11/28/2016. He has significant peripheral vascular disease. Also noticed to have leukocytosis and thrombocytosis, he received prednisone briefly when he received IV contrast. He has some confusion status, MRI of the brain was negative for metastatic disease. His creatinine level increased to around 2.5 mg/dL, now it has improved to around 1.3 mg/dL which is the baseline. 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 - S/P radiation treatment to the right lung mass somewhere in 2013., -CT scan done on 05/29/2015 showed increase in the size of right lower lobe cavitary lesion, Recent CT scan of the chest done during this also has not showed spiculated 5.2 cm mass in the right upper lobe with extension into the hilum, another cavitary lesion measuring 2.5 cm in the right lower lobe. Partially calcified left lower lobe lung nodule noted. -WBC 11781, H&H of 19.8/59.3, Platelet count of 582,000 (07/22/2012) -WBC 59109, H&H of 15.8/47.6, Platelet count of 500,000 (11/16/2013) -WBC 04190, H&H of 80/51, Platelet count of 875,000 (11/03/2016). REVIEW OF SYSTEMS: GENERAL: no weakness, no fatigue, no fever, sweats or chills. SKIN: No skin rash, some bruising in the upper extremity, HEAD: No new headache, no dizziness. Some confusion status present. EYES: No recent change in the vision, no diplopia, EARS: No earache no tinnitus, NOSE: No epistaxis, No nasal discharge or stuffiness, MOUTH: No sores, no dysphagia, no hoarseness of voice, NECK: No lumps, No swelling in thyroid area. No stiffness. PULMONARY: No cough, No shortness of breath, no hemoptysis, no chest pain, No wheezing. CARDIOVASCULAR: No anginal chest pain, no PND, no orthopnea. No palpitation, no leg edema. No syncope. GASTROINTESTINAL: No abdominal pain, no nausea or vomiting. No diarrhea, No constipation. No blood in stool or black tarry stools. No abdominal distention. UROLOGIC: No burning urination. No hematuria. He has Carmichael 's catheter. MUSCULOSKELETAL: No joint pain, No joint swelling, no muscle weakness. HEMATOLOGIC: No anemia, no bleeding disorder, No bruising. NEUROLOGIC: No seizures, no focal weakness, no speech difficulty, No memory disturbances. No tingling or numbness of the extremities. Past medical and surgical history: - peripheral vascular disease, S/P left lower extremity AKA, -lung cancer diagnosed in 2013, S/P radiation in [place]. I do not have any records for the review. -chronic pain syndrome. -atrial fibrillation he is on anticoagulant treatment. -hypothyroidism. -S/P right knee joint replacement in the past. -hypertension Social history: Discontinue smoking about 2 to 3 years back. Denies any ETOH abuse. He lives with her significant other. Family history: Not significant Medications: Please review his chart for detailed list of medication On exam: - Alert and oriented x3, well built man, not in any distress. - HEENT: no icterus, no pallor, Throat: Normal. - Neck: No palpable cervical lymphadenopathy. - Chest: clear to auscultation. - Abdomen: soft, nontender, no hepatomegaly, no splenomegaly. - No focal neuro deficit. - Extremities: no finger clubbing, no leg edema. -bilateral AKA noted. Lab: -WBC 62656, H&H of 15.5/47, MCV 68.8, Platelet count of 720,000. (11/24/2016). - WBC 74864, H&H of 12.2/40.3, MCV 69.8, Platelet count of 962,000 (12/02/2016). Peripheral smear reviewed by pathologist showed morphological normalplatelets but increase in the number, no blasts seen. No immature WBCs reported. - BUN/Creat: 21/1.3, calcium 8.0 (12/02/2016). Imaging: -CT scan of the chest done on 11/25/2016 showed 5.2 cm spiculated right upper lobe mass with extension to the right hilum, cavitary 2.5 cm nodule in the right lower lobe, partially calcified left lower lobe nodule, evidence of pulmonary hypertension noted. -MRI of the brain done on 11/26/2016--> no evidence of metastatic disease. ASSESSMENT AND PLAN: 76-year-old male, who has quite a few comorbid conditions , recently he was admitted for right lower extremity cellulitis and ischemic changes, S/P right AKA, had left AKA about 8 months back, has underlying peripheral vascular disease, longstanding history of smoking, discontinue smoking habit few years back, also a case of squamous cell carcinoma involving the right lung, S/P radiation treatment in 2013, I do not have records for the review but apparently he did not have any follow-up with the oncologist since then. Review of blood workup also shows significant erythrocytosis with hematocrit around 60 in 2012, also has leukocytosis and thrombocytosis for the last 3 to 4 years, he is gradually recovering from recent infection including C difficile colitis. Hemodynamically stable. Based on above blood workup findings, suspecting primary bone marrow disorder in the form of myeloproliferative disorder, suspecting polycythemia vera, I would like to have further workup as follows. -EPO level, KOLBY 2 mutation. -Ferritin level. Will decide about further management after reviewing above blood workup. A case of squamous cell carcinoma of the lung, recent CT scan shows 5.2 cm right upper lobe mass and another cavitary lesion in the right lower lobe, he is quite asymptomatic at this time. He already had radiation treatment earlier in 2013. Will have to gather some records. Thanks for the consultation Dr. Lukasz Murillo Hem/Onc (This note was completed using the dictation program Fluency Direct. As such, there may be misspellings, word substitutions, or other variations that should not change the essence of the clinical content of this encounter note. 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) Allergies Coded Allergies: Iodinated Diagnostic Agents (Unverified Allergy, Unknown, ., 11/24/16) Current Inpatient Medications Current Inpatient Medications Medications (Trade) Dose Ordered Sig/Greg Route Start Time Stop Time Status Last Admin Dose Admin Acetaminophen (Tylenol Tab) 650 mg Q4H PRN PO 11/24/16 15:15 12/24/16 15:14 11/25/16 14:39 650 MG Ondansetron HCl (Zofran Inj) 4 mg Q6H PRN IV 11/24/16 15:15 12/24/16 15:14 Levothyroxine Sodium (Synthroid Tab) 100 mcg DAILYBB PO 11/25/16 06:00 12/25/16 06:59 12/02/16 05:15 100 MCG Multivitamins (Multivitamin Tab) 1 tab DAILY PO 11/25/16 09:00 12/25/16 08:59 12/02/16 08:21 1 TAB Metoprolol Tartrate (Lopressor Tab) 50 mg BID PO 11/27/16 09:00 12/26/16 20:59 12/02/16 08:21 50 MG Vancomycin HCl (Vancomycin Oral Soln) 250 mg QID PO 11/27/16 22:15 12/07/16 22:14 12/02/16 16:05 250 MG Raspberry (Raspberry Syrup 5ml Cup) 5 ml QID PO 11/27/16 22:15 12/11/16 22:14 12/02/16 16:05 5 ML Oxycodone/ Acetaminophen (Percocet 5-325mg Tab) 1 tab Q4H PRN PO 11/28/16 11:15 12/12/16 11:14 12/02/16 08:38 1 TAB Polyethylene (Miralax Powder Packet) 17 gm DAILY PRN PO 11/29/16 09:15 12/29/16 09:14 Menthol/Zinc Oxide (Calmoseptine Oint) 1 appln BID PRN EXT 11/30/16 10:30 12/30/16 10:29 12/02/16 14:58 1 APPLN Warfarin Sodium (Coumadin Tab) 3 mg DAILY@16 PO 12/02/16 16:00 01/01/17 15:59 12/02/16 16:06 3 MG Physical Exam Date Time Temp Pulse Resp B/P (MAP) Pulse Ox O2 Delivery O2 Flow Rate FiO2 12/02/16 16:00 96 Room Air 12/02/16 15:45 36.8 86 18 154/69 (97) 95 12/02/16 12:00 Room Air 12/02/16 11:33 36.8 72 18 178/78 (111) 12/02/16 10:52 Room Air 12/02/16 08:06 37.1 88 20 148/66 (93) 98 Room Air 12/02/16 08:00 Room Air 12/02/16 04:09 36.8 89 20 149/63 (91) 97 Room Air 12/02/16 04:00 Room Air 12/02/16 00:00 Room Air 12/01/16 23:17 36.8 62 20 152/61 (91) 97 12/01/16 20:00 Room Air 12/01/16 19:53 36.7 63 20 152/69 (96) 95 Room Air Laboratory Results Last 24 Hours Test 12/02/16 06:19 White Blood Count 37.75 K/uL Red Blood Count 5.77 M/uL Hemoglobin 12.2 g/dL Hematocrit 40.3 % Mean Corpuscular Volume 69.8 fL Mean Corpuscular Hemoglobin 21.1 pg Mean Corpuscular Hemoglobin Concent 30.3 g/dl RDW Standard Deviation 49.4 fL RDW Coefficient of Variation 20.5 % Platelet Count 962 K/uL Mean Platelet Volume 9.5 fL Peripheral Blood Smear Path Consult Sodium Level 146 mmol/L Potassium Level 3.5 mmol/L Chloride Level 113 mmol/L Carbon Dioxide Level 22 mmol/L Anion Gap 11.0 mmol/L Blood Urea Nitrogen 21 mg/dl Creatinine 1.30 mg/dl Est Creatinine Clear Calc Drug Dose 46.5 ml/min Estimated GFR () 61.9 Estimated GFR (Non- 53.4 BUN/Creatinine Ratio 15.9 Random Glucose 106 mg/dl Calcium Level 8.0 mg/dl Phosphorus Level 1.7 mg/dl Albumin 2.5 gm/dl
[2016-12-03] VITALS (10 sets, daily range): BP systolic 134–188; BP diastolic 65–95; PULSE 51–77; TEMP 36.5–37.4; O2SAT 94–98
[2016-12-03] MEDS: OXYCODONE/ACETAMINOPHEN 5-325 TAB PO PRN ×4 (00:24→18:00)
[2016-12-03] MEDS: LEVOTHYROXINE 100 MCG TAB PO SCH (05:12)
[2016-12-03] MEDS: MULTIVITAMIN TAB PO SCH (08:33)
[2016-12-03] MEDS: VANCOMYCIN HCL 250 MG/5 ML SOLN PO SCH ×4 (08:33→20:45)
[2016-12-03] MEDS: RASPBERRY SYRUP 5 ML UDP PO SCH ×4 (08:33→20:45)
[2016-12-03] MEDS: METOPROLOL TARTRATE 50 MG TAB PO SCH ×2 (08:33→20:45)
[2016-12-03 08:36] LABS: INR 1.3 (0.9-1.1)
[2016-12-03 08:42] LABS: HEMATOCRIT 42.1 % (42-52); MEAN CELL VOLUME 70.6 fL (80-100); MEAN CORPUSCULAR HEMOGLOBIN 21.8 pg (25-34); MEAN CORPUSCULAR HGB CONC 30.9 g/dl (32-36); MEAN PLATELET VOLUME 9.8 fL (7.4-10.4); PLATELET COUNT 1137 K/uL (130-400); RED BLOOD COUNT 5.96 M/uL (4.7-6.1); WHITE BLOOD COUNT 35.46 K/uL (4.8-10.8)
[2016-12-03 08:48] LABS: ANISOCYTOSIS PRESENT; BASO % 0.1 %; BASO ABS # 0.05 K/uL (0-0.2); COMPLETE YES; ECHINOCYTES 1+; EOS % 1.9 %; HYPERSEGMENTED POLYS 1+; IG% 2.8 %; LYMPH ABS # 1.79 K/uL (1.2-3.4); MICROCYTOSIS PRESENT; MONO % 6.7 %; NEUT % 83.5 %; OVALOCYTES 1+; POIKILOCYTOSIS PRESENT; TOXIC GRANULATION 1+
[2016-12-03 08:53] LABS: BUN/CREATININE RATIO 14.8 (10-20); CALCIUM 8.4 mg/dl (8.5-10.1); CREATININE 1.2 mg/dl (0.60-1.40); POTASSIUM 3.8 mmol/L (3.5-5.1)
[2016-12-03 09:01] LABS: FERRITIN 25.2 ng/ml (8.0-388.0); PHOSPHORUS 2.2 mg/dl (2.5-4.9)
--- NOTE | 2016-12-03 10:07 | Nephrology Progress Note ---
Nephrology Progress Note Date of Service Dec 03, 2016. Chief Complaint KARINA/CKD Subjective No acute events overnight. No complaints this morning. Rangel feels well. Appetite good. Blood pressure elevated but patient asymptomatic. Some confusion noted overnight per nursing report. Planning potential discharge to [facility]. Review of Systems A complete review of systems was performed. Pertinent positives are noted above. All other systems are negative. Vital Signs Last 8 Hrs Date Time Temp Pulse Resp B/P (MAP) Pulse Ox O2 Delivery O2 Flow Rate FiO2 12/03/16 08:00 Room Air 12/03/16 07:46 37.4 51 18 170/95 (120) 95 Room Air 12/03/16 04:26 173/79 (110) 12/03/16 04:00 Room Air 12/03/16 03:42 37.0 60 18 188/75 (112) 97 Room Air Last Recorded Weight Weight (Kilograms): 67.000 Physical Exam General Appearance: WD/WN, no apparent distress Head: normocephalic, atraumatic Eyes: normal inspection, sclerae normal ENT: normal ENT inspection, pharynx normal Neck: supple, no JVD Respiratory/Chest: lungs clear, no respiratory distress, no accessory muscle use Cardiovascular: regular rate, rhythm, no gallop Back: + pertinent finding Abdomen/GI: non tender, soft Genitourinary - Male: + pertinent finding (Carmichael draining yellow urine) Extremities/Musculoskelatal: + pertinent finding (BL BKA) Neurologic/Psych: alert, normal mood/affect Family History Buerger's disease FATHER Hypertension Kidney disease SISTER Kidney stones Social History Smokeless Tobacco Use: No Alcohol Use: none Drug Use: none Marital Status: Housing Status: lives with significant other 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) Laboratory Results Past 24 Hours 12/03/16 08:07 Red Blood Count 5.96, Mean Corpuscular Volume 70.6, Mean Corpuscular Hemoglobin 21.8, Mean Corpuscular Hemoglobin Concent 30.9, Mean Platelet Volume 9.8, Neutrophils (%) (Auto) 83.5, Lymphocytes (%) (Auto) 5.0, Monocytes (%) (Auto) 6.7, Eosinophils (%) (Auto) 1.9, Basophils (%) (Auto) 0.1, Neutrophils # (Auto) 29.56, Lymphocytes # (Auto) 1.79, Monocytes # (Auto) 2.37, Eosinophils # (Auto) 0.68, Basophils # (Auto) 0.05 12/03/16 08:07 Test 12/03/16 08:07 White Blood Count 35.46 K/uL (4.8-10.8) Red Blood Count 5.96 M/uL (4.7-6.1) Hemoglobin 13.0 g/dL (14.0-18.0) Hematocrit 42.1 % (42-52) Mean Corpuscular Volume 70.6 fL (80-100) Mean Corpuscular Hemoglobin 21.8 pg (25-34) Mean Corpuscular Hemoglobin Concent 30.9 g/dl (32-36) Platelet Count 1137 K/uL (130-400) Mean Platelet Volume 9.8 fL (7.4-10.4) Neutrophils (%) (Auto) 83.5 % Lymphocytes (%) (Auto) 5.0 % Monocytes (%) (Auto) 6.7 % Eosinophils (%) (Auto) 1.9 % Basophils (%) (Auto) 0.1 % Neutrophils # (Auto) 29.56 K/uL (1.4-6.5) Lymphocytes # (Auto) 1.79 K/uL (1.2-3.4) Monocytes # (Auto) 2.37 K/uL (0.11-0.59) Eosinophils # (Auto) 0.68 K/uL (0-0.5) Basophils # (Auto) 0.05 K/uL (0-0.2) RDW Standard Deviation 49.7 fL (36.4-46.3) RDW Coefficient of Variation 20.6 % (11.5-14.5) Immature Granulocyte % (Auto) 2.8 % Immature Granulocyte # (Auto) 1.01 K/uL (0.00-0.02) Nucleated RBC Absolute Count (auto) 0.02 K/uL (0-0) Nucleated Red Blood Cells % 0.1 % Hypersegmented Polys 1+ Toxic Granulation 1+ Poikilocytosis PRESENT Anisocytosis PRESENT Microcytosis PRESENT Ovalocytes 1+ Echinocytes 1+ Prothrombin Time 14.0 SECONDS (9.0-12.0) Prothromb Time International Ratio 1.3 (0.9-1.1) Anion Gap 8.0 mmol/L (3-11) Est Creatinine Clear Calc Drug Dose 50.4 ml/min Estimated GFR () 68.1 Estimated GFR (Non- 58.8 BUN/Creatinine Ratio 14.8 (10-20) Calcium Level 8.4 mg/dl (8.5-10.1) Phosphorus Level 2.2 mg/dl (2.5-4.9) Magnesium Level 2.0 mg/dl (1.8-2.4) Ferritin 25.2 ng/ml (8.0-388.0) Allergies Coded Allergies: Iodinated Diagnostic Agents (Unverified Allergy, Unknown, ., 11/24/16) Medications Current Inpatient Medications Medications (Trade) Dose Ordered Sig/Greg Route Start Time Stop Time Status Last Admin Dose Admin Acetaminophen (Tylenol Tab) 650 mg Q4H PRN PO 11/24/16 15:15 12/24/16 15:14 11/25/16 14:39 650 MG Ondansetron HCl (Zofran Inj) 4 mg Q6H PRN IV 11/24/16 15:15 12/24/16 15:14 Levothyroxine Sodium (Synthroid Tab) 100 mcg DAILYBB PO 11/25/16 06:00 12/25/16 06:59 12/03/16 05:12 100 MCG Multivitamins (Multivitamin Tab) 1 tab DAILY PO 11/25/16 09:00 12/25/16 08:59 12/03/16 08:33 1 TAB Metoprolol Tartrate (Lopressor Tab) 50 mg BID PO 11/27/16 09:00 12/26/16 20:59 12/03/16 08:33 50 MG Vancomycin HCl (Vancomycin Oral Soln) 250 mg QID PO 11/27/16 22:15 12/07/16 22:14 12/03/16 08:33 250 MG Raspberry (Raspberry Syrup 5ml Cup) 5 ml QID PO 11/27/16 22:15 12/11/16 22:14 12/03/16 08:33 5 ML Oxycodone/ Acetaminophen (Percocet 5-325mg Tab) 1 tab Q4H PRN PO 11/28/16 11:15 12/12/16 11:14 12/03/16 05:12 1 TAB Polyethylene (Miralax Powder Packet) 17 gm DAILY PRN PO 11/29/16 09:15 12/29/16 09:14 Menthol/Zinc Oxide (Calmoseptine Oint) 1 appln BID PRN EXT 11/30/16 10:30 12/30/16 10:29 12/02/16 14:58 1 APPLN Warfarin Sodium (Coumadin Tab) 3 mg DAILY@16 PO 12/02/16 16:00 01/01/17 15:59 12/02/16 16:06 3 MG Impression (1) Acute renal insufficiency (2) Vascular disease Rangel is a 76-year-old male with peripheral vascular disease, history of L AKA, hypertension, history of small cell lung cancer treated with XRT and now new evidence of metastatic disease. He admitted to the hospital with right lower extremity cellulitis and ischemia. He is POD# 5 s/p R AKA. Rangel developed KARINA during his hospitalization. This is felt to have been hemodynamically mediated and consistent with prerenal azotemia. Creatinine was 2.5 on admission and has improved to baseline. UA unremarkable. Recommendations -- Repeat renal profile tomorrow AM -- Amlodipine 5 mg given for hypertension -- Blood pressure and volume status are acceptable -- Continue metoprolol 50 twice a day -- Continue to hold furosemide -- Consider restarting losartan if BP does not improve with amlodipine -- Medications are appropriate for renal function -- Carmichael to be discontinued today
[2016-12-03] MEDS ORDERED: AMLODIPINE BESYLATE 5 MG TAB PO ONE (10:15)
--- NOTE | 2016-12-03 11:55 | Progress Note ---
Internal Med Progress Note Date of Service: Dec 03, 2016. Provider Documentation: SUBJECTIVE: Seen and examined at bedside Feels well today Denies chest pain/SOB RLE pain is controlled Offers no other complaints Patient and his expressed that they prefer no further work up for cancer OBJECTIVE: Vital Signs-as noted below Physical Exam: General Appearance:Moderately built and nourished, no apparent distress Head: normocephalic, Atraumatic Eyes: normal inspection, EOMI, PERRL Neck: supple, Trachea midline Respiratory/Chest: Normal breath sounds, CTA Cardiovascular: S1, S2, No murmur Abdomen/GI:Soft, Non tender, Bowel sounds present Extremities/Musculoskelatal: R AKA in aayush, LLE S/P amputation Neurologic/Psych:grossly no focal neurological deficits Skin: normal color, warm Lab data as noted below. ASSESSMENT & PLAN: SEVERE SEPSIS Likely sources: necrotic /ischemic rt lower limbs /C diff colitis Patient was admitted with leukocytosis, tachycardia, afebrile, no hypotension, POC lactate 2.44 s/p angiogram of rt lower ext : no vascular flow below rt Profunda femoris artery , recommend rt lower ext amputation S/P RT AKA by Dr Gallegos on 11/28/16 Appreciate vascular surgery Input Need to follow up with Vascular surgery as outpatient SEVERE PERIPHERAL VASCULAR DISEASE RLE Doppler showed age indeterminate occlusion of superficial femoral artery, extensive atherosclerotic plaque within RLE, hemodynamically significant stenosis of the right common femoral artery Appreciate vascular surgery- Dr. 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 DIFF COLITIS : has been on broad spectrum abx due to above Continue PO vancomycin Day 09/15 contact isolation Diarrhea resolved DIFFUSE RASH /NECK SWELLING /ALLERGIC REACTION TO CONTRAST DYE ; resolved with steroids and H1/H2 jose developed after angiogram /pt was pre medicated prior to study noted to have allergy to contrast dye prednisone /Benadryl D/chilo DELIRIUM /CONFUSION : Resolved Likely metabolic encephalopathy due to above MRI of brain combo shows no metastatic process delirium resolved after amputation of ischemic limb KARINA on CKD III : Creatinine improved 2.5 -> 1.9 -> 1.6 -> 1.8 -. 1.6 -> 1.4>> 1.3>>>1.2 continue to Hold Lasix Plan to resume losartan tomorrow for better BP control Appreciate nephrology input HISTORY OF LUNG CANCER S/p radiation July 2013 CXR shows multiple lung nodules, ?metastatic appreciate Consult from pulmonology CT chest shows : Spiculated 5.2 cm mass in the right upper lobe with extension to the right hilum highly concerning for primary bronchogenic carcinoma. Cavitary 2.5 cm nodule in the right lower lobe is concerning for regional metastatic disease. report of CT Chest updated to pt and family MRI of brain combo ordered show no intracranial mets poor prognosis for aggressive lung malignancy Heme Onch consulted but patient prefers to follow up with his Chief Executive Or Managing Director and doesn't want any more cancer work up PAROXYSMAL ATRIAL FIBRILLATION continue PO Lopressor continue Coumadin restarted yesterday Monitor INR:13 today CODE STATUS DNR DISPOSITION: social service consulted will need rehab:bilateral amputation Plan to discharge to Rehab when accepted Contact : Son Mariusz Multani Terry Alvarez Vital Signs: Date Time Temp Pulse Resp B/P (MAP) Pulse Ox O2 Delivery O2 Flow Rate FiO2 12/03/16 11:33 36.8 67 18 155/90 (111) 98 Room Air 12/03/16 08:00 Room Air 12/03/16 07:46 37.4 51 18 170/95 (120) 95 Room Air 12/03/16 04:26 173/79 (110) 12/03/16 04:00 Room Air 12/03/16 03:42 37.0 60 18 188/75 (112) 97 Room Air 12/02/16 23:59 Room Air 12/02/16 23:40 36.8 57 19 167/89 (115) 96 Room Air 12/02/16 20:08 36.7 98 17 167/84 (111) 95 Room Air 12/02/16 20:00 95 Room Air 12/02/16 16:00 96 Room Air 12/02/16 15:45 36.8 86 18 154/69 (97) 95 Lab Results: Results Past 24 Hours Test 12/03/16 08:07 Range/Units White Blood Count 35.46 4.8-10.8 K/uL Red Blood Count 5.96 4.7-6.1 M/uL Hemoglobin 13.0 14.0-18.0 g/dL Hematocrit 42.1 42-52 % Mean Corpuscular Volume 70.6 80-100 fL Mean Corpuscular Hemoglobin 21.8 25-34 pg Mean Corpuscular Hemoglobin Concent 30.9 32-36 g/dl Platelet Count 1137 130-400 K/uL Mean Platelet Volume 9.8 7.4-10.4 fL Neutrophils (%) (Auto) 83.5 % Lymphocytes (%) (Auto) 5.0 % Monocytes (%) (Auto) 6.7 % Eosinophils (%) (Auto) 1.9 % Basophils (%) (Auto) 0.1 % Neutrophils # (Auto) 29.56 1.4-6.5 K/uL Lymphocytes # (Auto) 1.79 1.2-3.4 K/uL Monocytes # (Auto) 2.37 0.11-0.59 K/uL Eosinophils # (Auto) 0.68 0-0.5 K/uL Basophils # (Auto) 0.05 0-0.2 K/uL RDW Standard Deviation 49.7 36.4-46.3 fL RDW Coefficient of Variation 20.6 11.5-14.5 % Immature Granulocyte % (Auto) 2.8 % Immature Granulocyte # (Auto) 1.01 0.00-0.02 K/uL Nucleated RBC Absolute Count (auto) 0.02 0-0 K/uL Nucleated Red Blood Cells % 0.1 % Hypersegmented Polys 1+ Toxic Granulation 1+ Poikilocytosis PRESENT Anisocytosis PRESENT Microcytosis PRESENT Ovalocytes 1+ Echinocytes 1+ Prothrombin Time 14.0 9.0-12.0 SECONDS Prothromb Time International Ratio 1.3 0.9-1.1 Sodium Level 142 136-145 mmol/L Potassium Level 3.8 3.5-5.1 mmol/L Chloride Level 111 98-107 mmol/L Carbon Dioxide Level 23 21-32 mmol/L Anion Gap 8.0 3-11 mmol/L Blood Urea Nitrogen 18 7-18 mg/dl Creatinine 1.20 0.60-1.40 mg/dl Est Creatinine Clear Calc Drug Dose 50.4 ml/min Estimated GFR () 68.1 Estimated GFR (Non- 58.8 BUN/Creatinine Ratio 14.8 10-20 Random Glucose 120 70-99 mg/dl Calcium Level 8.4 8.5-10.1 mg/dl Phosphorus Level 2.2 2.5-4.9 mg/dl Magnesium Level 2.0 1.8-2.4 mg/dl Ferritin 25.2 8.0-388.0 ng/ml
[2016-12-03] MEDS ORDERED: SODIUM PHOSPHATE 3 MMOL/1 ML INFUSION IV ONE (12:15)
[2016-12-03] MEDS ORDERED: SODIUM PHOSPHATE INJ 9 MMOL in SODIUM CHLORIDE 0.9% 250ML 250 ML IV SCH (13:15)
[2016-12-03] MEDS: MENTHOL-ZINC OXIDE 360 APPLN/120 GM TUBE EXT PRN (13:17)
[2016-12-03] MEDS: WARFARIN SOD 3 MG TAB PO SCH (16:10)
--- NOTE | 2016-12-03 18:13 | Infectious Disease Progress Nt ---
Progress Note Date of Service Dec 03, 2016. Subjective Pt evaluation today including: conversation w/ patient, physical exam, chart review, lab review, review of studies, conversation w/ crop consultant, review of inpatient medication list patient remains afebrile. Offers no new complaints. Pain controlled. All Other Systems: Reviewed and Negative Medications Current Inpatient Medications Medications (Trade) Dose Ordered Sig/Greg Route Start Time Stop Time Status Last Admin Dose Admin Acetaminophen (Tylenol Tab) 650 mg Q4H PRN PO 11/24/16 15:15 12/24/16 15:14 11/25/16 14:39 650 MG Ondansetron HCl (Zofran Inj) 4 mg Q6H PRN IV 11/24/16 15:15 12/24/16 15:14 Levothyroxine Sodium (Synthroid Tab) 100 mcg DAILYBB PO 11/25/16 06:00 12/25/16 06:59 12/03/16 05:12 100 MCG Multivitamins (Multivitamin Tab) 1 tab DAILY PO 11/25/16 09:00 12/25/16 08:59 12/03/16 08:33 1 TAB Metoprolol Tartrate (Lopressor Tab) 50 mg BID PO 11/27/16 09:00 12/26/16 20:59 12/03/16 08:33 50 MG Vancomycin HCl (Vancomycin Oral Soln) 250 mg QID PO 11/27/16 22:15 12/07/16 22:14 12/03/16 16:10 250 MG Raspberry (Raspberry Syrup 5ml Cup) 5 ml QID PO 11/27/16 22:15 12/11/16 22:14 12/03/16 16:10 5 ML Oxycodone/ Acetaminophen (Percocet 5-325mg Tab) 1 tab Q4H PRN PO 11/28/16 11:15 12/12/16 11:14 12/03/16 18:00 1 TAB Polyethylene (Miralax Powder Packet) 17 gm DAILY PRN PO 11/29/16 09:15 12/29/16 09:14 Menthol/Zinc Oxide (Calmoseptine Oint) 1 appln BID PRN EXT 11/30/16 10:30 12/30/16 10:29 12/03/16 13:17 1 APPLN Warfarin Sodium (Coumadin Tab) 3 mg DAILY@16 PO 12/02/16 16:00 01/01/17 15:59 12/03/16 16:10 3 MG Losartan Potassium (coZAAR TAB) 50 mg DAILY PO 12/04/16 09:00 01/03/17 08:59 Objective Vital Signs Date Time Temp Pulse Resp B/P (MAP) Pulse Ox O2 Delivery O2 Flow Rate FiO2 12/03/16 16:00 95 Room Air 12/03/16 15:40 37.0 77 18 143/73 (96) 95 Room Air 12/03/16 13:22 70 134/65 (88) 12/03/16 12:00 Room Air 12/03/16 11:33 36.8 67 18 155/90 (111) 98 Room Air 12/03/16 08:00 Room Air 12/03/16 07:46 37.4 51 18 170/95 (120) 95 Room Air 12/03/16 04:26 173/79 (110) 12/03/16 04:00 Room Air 12/03/16 03:42 37.0 60 18 188/75 (112) 97 Room Air 12/02/16 23:59 Room Air 12/02/16 23:40 36.8 57 19 167/89 (115) 96 Room Air 12/02/16 20:08 36.7 98 17 167/84 (111) 95 Room Air 12/02/16 20:00 95 Room Air Physical Exam General Appearance: no apparent distress, + pertinent finding ( Chronically ill-appearing) Eyes: normal inspection, EOMI, sclerae normal ENT: normal ENT inspection, pharynx normal Neck: supple, no adenopathy, trachea midline Respiratory/Chest: chest non-tender, lungs clear, normal breath sounds, no respiratory distress Cardiovascular: no gallop, no murmur, + irregularly irregular Abdomen: normal bowel sounds, non tender, soft, no organomegaly Extremities: non-tender, + pertinent finding ( status post right AKA) Neurologic/Psychiatric: alert, oriented x 3 Skin: normal color, no rash Lymphatic: no adenopathy Laboratory Results Last 24 Hours Test 12/03/16 08:07 White Blood Count 35.46 K/uL Red Blood Count 5.96 M/uL Hemoglobin 13.0 g/dL Hematocrit 42.1 % Mean Corpuscular Volume 70.6 fL Mean Corpuscular Hemoglobin 21.8 pg Mean Corpuscular Hemoglobin Concent 30.9 g/dl Platelet Count 1137 K/uL Mean Platelet Volume 9.8 fL Neutrophils (%) (Auto) 83.5 % Lymphocytes (%) (Auto) 5.0 % Monocytes (%) (Auto) 6.7 % Eosinophils (%) (Auto) 1.9 % Basophils (%) (Auto) 0.1 % Neutrophils # (Auto) 29.56 K/uL Lymphocytes # (Auto) 1.79 K/uL Monocytes # (Auto) 2.37 K/uL Eosinophils # (Auto) 0.68 K/uL Basophils # (Auto) 0.05 K/uL RDW Standard Deviation 49.7 fL RDW Coefficient of Variation 20.6 % Immature Granulocyte % (Auto) 2.8 % Immature Granulocyte # (Auto) 1.01 K/uL Nucleated RBC Absolute Count (auto) 0.02 K/uL Nucleated Red Blood Cells % 0.1 % Hypersegmented Polys 1+ Toxic Granulation 1+ Poikilocytosis PRESENT Anisocytosis PRESENT Microcytosis PRESENT Ovalocytes 1+ Echinocytes 1+ Prothrombin Time 14.0 SECONDS Prothromb Time International Ratio 1.3 Sodium Level 142 mmol/L Potassium Level 3.8 mmol/L Chloride Level 111 mmol/L Carbon Dioxide Level 23 mmol/L Anion Gap 8.0 mmol/L Blood Urea Nitrogen 18 mg/dl Creatinine 1.20 mg/dl Est Creatinine Clear Calc Drug Dose 50.4 ml/min Estimated GFR () 68.1 Estimated GFR (Non- 58.8 BUN/Creatinine Ratio 14.8 Random Glucose 120 mg/dl Calcium Level 8.4 mg/dl Phosphorus Level 2.2 mg/dl Magnesium Level 2.0 mg/dl Ferritin 25.2 ng/ml Assessment and Plan 76-year-old male with severe peripheral arterial disease, status post left AKA , atrial fibrillation, now with sepsis, progressive gangrenous changes of right foot, and likely associated cellulitis. patient now status post right AKA, await operative cultures. Continue present antibiotics for now. Would recommend prolonged tapering course of oral vancomycin for C. diff given significant risk for recurrence. Will discuss.
[2016-12-04] VITALS (7 sets, daily range): BP systolic 127–150; BP diastolic 66–82; PULSE 55–73; TEMP 36.6–37; O2SAT 94–98
[2016-12-04] MEDS: OXYCODONE/ACETAMINOPHEN 5-325 TAB PO PRN ×2 (05:03→09:10)
[2016-12-04] MEDS: LEVOTHYROXINE 100 MCG TAB PO SCH (05:49)
[2016-12-04 06:19] LABS: INR 1.5 (0.9-1.1); PROTHROMBIN TIME (PATIENT) 16.5 SECONDS (9.0-12.0)
[2016-12-04 06:25] LABS: HEMATOCRIT 38.9 % (42-52); MEAN CELL VOLUME 70.1 fL (80-100); MEAN CORPUSCULAR HEMOGLOBIN 21.8 pg (25-34); MEAN CORPUSCULAR HGB CONC 31.1 g/dl (32-36); MEAN PLATELET VOLUME 9.7 fL (7.4-10.4); PLATELET COUNT 1083 K/uL (130-400); RED BLOOD COUNT 5.55 M/uL (4.7-6.1); WHITE BLOOD COUNT 34.75 K/uL (4.8-10.8)
[2016-12-04 06:38] LABS: BUN/CREATININE RATIO 14.7 (10-20); CALCIUM 7.7 mg/dl (8.5-10.1); POTASSIUM 3.7 mmol/L (3.5-5.1)
[2016-12-04 06:49] LABS: ANISOCYTOSIS PRESENT; BASO ABS # 0.28 K/uL (0-0.2); BASOPHIL % 0.8 % (0-2); COMPLETE YES; ECHINOCYTES 1+; EOSINOPHIL % 2.5 %; HYPERSEGMENTED POLYS 1+; LYMPH ABS # 0.59 K/uL (1.2-3.4); LYMPHOCYTE % 1.7 %; MICROCYTOSIS PRESENT; MYELOCYTE % 2.5 %; NEUTROPHILS % 86.6 %; OVALOCYTES 1+; TOXIC GRANULATION 1+
[2016-12-04] MEDS: LOSARTAN POTASSIUM 50 MG TAB PO SCH (09:09)
[2016-12-04] MEDS: METOPROLOL TARTRATE 50 MG TAB PO SCH ×2 (09:10→21:09)
[2016-12-04] MEDS: VANCOMYCIN HCL 250 MG/5 ML SOLN PO SCH ×4 (09:10→21:08)
[2016-12-04] MEDS: RASPBERRY SYRUP 5 ML UDP PO SCH ×4 (09:10→21:08)
[2016-12-04] MEDS: MULTIVITAMIN TAB PO SCH (09:10)
--- NOTE | 2016-12-04 09:14 | Nephrology Progress Note ---
Nephrology Progress Note Date of Service Dec 04, 2016. Chief Complaint KARINA/CKD Subjective No acute events overnight. Mario is resting comfortably in bed this morning. Pain well controlled. No fevers or chills. BP improved. Review of Systems A complete review of systems was performed. Pertinent positives are noted above. All other systems are negative. Vital Signs Last 8 Hrs Date Time Temp Pulse Resp B/P (MAP) Pulse Ox O2 Delivery O2 Flow Rate FiO2 12/04/16 07:24 36.7 65 16 127/74 (91) 95 Room Air 12/04/16 04:00 Room Air Last Recorded Weight Weight (Kilograms): 67.000 Physical Exam General Appearance: WD/WN, no apparent distress Head: normocephalic, atraumatic Eyes: normal inspection, sclerae normal ENT: normal ENT inspection, pharynx normal Neck: supple, no JVD Respiratory/Chest: lungs clear, no respiratory distress, no accessory muscle use Cardiovascular: regular rate, rhythm, no gallop, no murmur Abdomen/GI: non tender, soft Extremities/Musculoskelatal: normal inspection, + pertinent finding (BL AKA) Neurologic/Psych: alert, normal mood/affect Family History Buerger's disease FATHER Hypertension Kidney disease SISTER Kidney stones Social History Smokeless Tobacco Use: No Alcohol Use: none Drug Use: none Marital Status: Housing Status: lives with significant other 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) Laboratory Results Past 24 Hours 12/04/16 05:28 Red Blood Count 5.55, Mean Corpuscular Volume 70.1, Mean Corpuscular Hemoglobin 21.8, Mean Corpuscular Hemoglobin Concent 31.1, Mean Platelet Volume 9.7 12/04/16 05:28 Test 12/04/16 05:28 White Blood Count 34.75 K/uL (4.8-10.8) Red Blood Count 5.55 M/uL (4.7-6.1) Hemoglobin 12.1 g/dL (14.0-18.0) Hematocrit 38.9 % (42-52) Mean Corpuscular Volume 70.1 fL (80-100) Mean Corpuscular Hemoglobin 21.8 pg (25-34) Mean Corpuscular Hemoglobin Concent 31.1 g/dl (32-36) Platelet Count 1083 K/uL (130-400) Mean Platelet Volume 9.7 fL (7.4-10.4) RDW Standard Deviation 49.2 fL (36.4-46.3) RDW Coefficient of Variation 20.8 % (11.5-14.5) Neutrophils % (Manual) 86.6 % Lymphocytes % (Manual) 1.7 % Monocytes % (Manual) 5.9 % Eosinophils % (Manual) 2.5 % Basophils % (Manual) 0.8 % (0-2) Myelocytes % 2.5 % Neutrophils # (Manual) 30.09 K/uL (1.4-6.5) Total Absolute Neutrophils 30.09 K/uL (1.4-6.5) Lymphocytes # (Manual) 0.59 K/uL (1.2-3.4) Total Absolute Lymphocytes 0.59 K/uL (1.2-3.4) Monocytes # (Manual) 2.05 K/uL (0.11-0.59) Eosinophils # (Manual) 0.87 K/uL (0-0.5) Basophils # (Manual) 0.28 K/uL (0-0.2) Myelocytes # 0.87 K/uL (0-0) Hypersegmented Polys 1+ Toxic Granulation 1+ Anisocytosis PRESENT Microcytosis PRESENT Ovalocytes 1+ Echinocytes 1+ Prothrombin Time 16.5 SECONDS (9.0-12.0) Prothromb Time International Ratio 1.5 (0.9-1.1) Anion Gap 7.0 mmol/L (3-11) Est Creatinine Clear Calc Drug Dose 60.5 ml/min Estimated GFR () 85.0 Estimated GFR (Non- 73.3 BUN/Creatinine Ratio 14.7 (10-20) Calcium Level 7.7 mg/dl (8.5-10.1) Magnesium Level 2.0 mg/dl (1.8-2.4) Allergies Coded Allergies: Iodinated Diagnostic Agents (Unverified Allergy, Unknown, ., 11/24/16) Medications Current Inpatient Medications Medications (Trade) Dose Ordered Sig/Greg Route Start Time Stop Time Status Last Admin Dose Admin Acetaminophen (Tylenol Tab) 650 mg Q4H PRN PO 11/24/16 15:15 12/24/16 15:14 11/25/16 14:39 650 MG Ondansetron HCl (Zofran Inj) 4 mg Q6H PRN IV 11/24/16 15:15 12/24/16 15:14 Levothyroxine Sodium (Synthroid Tab) 100 mcg DAILYBB PO 11/25/16 06:00 12/25/16 06:59 12/04/16 05:49 100 MCG Multivitamins (Multivitamin Tab) 1 tab DAILY PO 11/25/16 09:00 12/25/16 08:59 12/03/16 08:33 1 TAB Metoprolol Tartrate (Lopressor Tab) 50 mg BID PO 11/27/16 09:00 12/26/16 20:59 12/03/16 20:45 50 MG Vancomycin HCl (Vancomycin Oral Soln) 250 mg QID PO 11/27/16 22:15 12/07/16 22:14 12/03/16 20:45 250 MG Raspberry (Raspberry Syrup 5ml Cup) 5 ml QID PO 11/27/16 22:15 12/11/16 22:14 12/03/16 20:45 5 ML Oxycodone/ Acetaminophen (Percocet 5-325mg Tab) 1 tab Q4H PRN PO 11/28/16 11:15 12/12/16 11:14 12/04/16 05:03 1 TAB Polyethylene (Miralax Powder Packet) 17 gm DAILY PRN PO 11/29/16 09:15 12/29/16 09:14 Menthol/Zinc Oxide (Calmoseptine Oint) 1 appln BID PRN EXT 11/30/16 10:30 12/30/16 10:29 12/03/16 13:17 1 APPLN Warfarin Sodium (Coumadin Tab) 3 mg DAILY@16 PO 12/02/16 16:00 01/01/17 15:59 12/03/16 16:10 3 MG Losartan Potassium (coZAAR TAB) 50 mg DAILY PO 12/04/16 09:00 01/03/17 08:59 Impression (1) Acute renal insufficiency (2) Vascular disease Rangel is a 76-year-old male with peripheral vascular disease, history of L AKA, hypertension, history of small cell lung cancer treated with XRT and now new evidence of metastatic disease. He admitted to the hospital with right lower extremity cellulitis and ischemia. He is POD# 6 s/p R AKA. Rangel developed KARINA during his hospitalization. This is felt to have been hemodynamically mediated and consistent with prerenal azotemia. Creatinine was 2.5 on admission and has improved to baseline. UA unremarkable. Recommendations -- BP improved after restarting Losartan -- Renal profile stable -- Blood pressure and volume status are acceptable -- Continue metoprolol 50 twice a day -- No need for diuretic to be restarted at this time -- Renal recovery noted -- Jany rubio Nephrology will sign-off. Please call with questions or concerns.
--- NOTE | 2016-12-04 09:20 | Progress Note ---
Internal Med Progress Note Date of Service: Dec 04, 2016. Provider Documentation: SUBJECTIVE: Seen and examined at bedside Doing well RLE pain is controlled No new complaints Denies chest pain/SOB/Abd pain/dizziness Diarrhea resolved OBJECTIVE: Vital Signs-as noted below Physical Exam: General Appearance:Moderately built and nourished, no apparent distress Head: normocephalic, Atraumatic Eyes: normal inspection, EOMI, PERRL Neck: supple, Trachea midline Respiratory/Chest: Normal breath sounds, CTA Cardiovascular: S1, S2, No murmur Abdomen/GI:Soft, Non tender, Bowel sounds present Extremities/Musculoskelatal: R AKA in bandage, LLE S/P amputation Neurologic/Psych:grossly no focal neurological deficits Skin: normal color, warm Lab data as noted below. ASSESSMENT & PLAN: SEVERE SEPSIS Likely sources: necrotic /ischemic rt lower limbs /C diff colitis Patient was admitted with leukocytosis, tachycardia, afebrile, no hypotension, POC lactate 2.44 s/p angiogram of rt lower ext : no vascular flow below rt Profunda femoris artery , recommend rt lower ext amputation S/P RT AKA by Dr Gallegos on 11/28/16 Appreciate vascular surgery Input Need to follow up with Vascular surgery as outpatient ID following SEVERE PERIPHERAL VASCULAR DISEASE RLE Doppler showed age indeterminate occlusion of superficial femoral artery, extensive atherosclerotic plaque within RLE, hemodynamically significant stenosis of the right common femoral artery Appreciate vascular surgery- Dr. 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 C. DIFF COLITIS : has been on broad spectrum abx due to above Continue PO vancomycin Day 8 contact isolation Diarrhea resolved ID following DIFFUSE RASH /NECK SWELLING /ALLERGIC REACTION TO CONTRAST DYE ; resolved with steroids and H1/H2 jose developed after angiogram /pt was pre medicated prior to study noted to have allergy to contrast dye prednisone /Benadryl D/chilo DELIRIUM /CONFUSION : Resolved Likely metabolic encephalopathy due to above MRI of brain combo shows no metastatic process delirium resolved after amputation of ischemic limb KARINA on CKD III : Creatinine improved 2.5 -> 1.0 continue to Hold Lasix losartan resumed Appreciate nephrology input HISTORY OF LUNG CANCER S/p radiation July 2013 CXR shows multiple lung nodules, ?metastatic appreciate Consult from pulmonology CT chest shows : Spiculated 5.2 cm mass in the right upper lobe with extension to the right hilum highly concerning for primary bronchogenic carcinoma. Cavitary 2.5 cm nodule in the right lower lobe is concerning for regional metastatic disease. 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 and doesn't want any more cancer work up PAROXYSMAL ATRIAL FIBRILLATION continue PO Lopressor continue Coumadin (resumed on 12/02) Monitor INR:1.5 today CODE STATUS DNR DISPOSITION: social service consulted will need rehab:bilateral amputation Plan to discharge to Rehab when accepted Contact : Son Mariusz Multani Terry Alvarez Vital Signs: Date Time Temp Pulse Resp B/P (MAP) Pulse Ox O2 Delivery O2 Flow Rate FiO2 12/04/16 08:00 Room Air 12/04/16 07:24 36.7 65 16 127/74 (91) 95 Room Air 12/04/16 04:00 Room Air 12/03/16 23:59 Room Air 12/03/16 23:35 36.5 56 18 134/74 (94) 95 Room Air 12/03/16 20:00 96 Room Air 12/03/16 19:44 36.9 73 18 145/77 (99) 94 Room Air 12/03/16 16:00 95 Room Air 12/03/16 15:40 37.0 77 18 143/73 (96) 95 Room Air 12/03/16 13:22 70 134/65 (88) 12/03/16 12:00 Room Air 12/03/16 11:33 36.8 67 18 155/90 (111) 98 Room Air Lab Results: Results Past 24 Hours Test 12/04/16 05:28 Range/Units White Blood Count 34.75 4.8-10.8 K/uL Red Blood Count 5.55 4.7-6.1 M/uL Hemoglobin 12.1 14.0-18.0 g/dL Hematocrit 38.9 42-52 % Mean Corpuscular Volume 70.1 80-100 fL Mean Corpuscular Hemoglobin 21.8 25-34 pg Mean Corpuscular Hemoglobin Concent 31.1 32-36 g/dl Platelet Count 1083 130-400 K/uL Mean Platelet Volume 9.7 7.4-10.4 fL RDW Standard Deviation 49.2 36.4-46.3 fL RDW Coefficient of Variation 20.8 11.5-14.5 % Neutrophils % (Manual) 86.6 % Lymphocytes % (Manual) 1.7 % Monocytes % (Manual) 5.9 % Eosinophils % (Manual) 2.5 % Basophils % (Manual) 0.8 0-2 % Myelocytes % 2.5 % Neutrophils # (Manual) 30.09 1.4-6.5 K/uL Total Absolute Neutrophils 30.09 1.4-6.5 K/uL Lymphocytes # (Manual) 0.59 1.2-3.4 K/uL Total Absolute Lymphocytes 0.59 1.2-3.4 K/uL Monocytes # (Manual) 2.05 0.11-0.59 K/uL Eosinophils # (Manual) 0.87 0-0.5 K/uL Basophils # (Manual) 0.28 0-0.2 K/uL Myelocytes # 0.87 0-0 K/uL Hypersegmented Polys 1+ Toxic Granulation 1+ Anisocytosis PRESENT Microcytosis PRESENT Ovalocytes 1+ Echinocytes 1+ Prothrombin Time 16.5 9.0-12.0 SECONDS Prothromb Time International Ratio 1.5 0.9-1.1 Sodium Level 143 136-145 mmol/L Potassium Level 3.7 3.5-5.1 mmol/L Chloride Level 112 98-107 mmol/L Carbon Dioxide Level 24 21-32 mmol/L Anion Gap 7.0 3-11 mmol/L Blood Urea Nitrogen 15 7-18 mg/dl Creatinine 1.00 0.60-1.40 mg/dl Est Creatinine Clear Calc Drug Dose 60.5 ml/min Estimated GFR () 85.0 Estimated GFR (Non- 73.3 BUN/Creatinine Ratio 14.7 10-20 Random Glucose 80 70-99 mg/dl Calcium Level 7.7 8.5-10.1 mg/dl Magnesium Level 2.0 1.8-2.4 mg/dl
--- NOTE | 2016-12-04 13:29 | Infectious Disease Progress Nt ---
Progress Note Date of Service Dec 04, 2016. Subjective Pt evaluation today including: conversation w/ patient, physical exam, chart review, lab review, review of studies, conversation w/ information systems consultant, review of inpatient medication list No new complaints. Remains afebrile. Off all Abx other than oral vancomycin. Diarrhea imroving. All Other Systems: Reviewed and Negative Medications Current Inpatient Medications Medications (Trade) Dose Ordered Sig/Greg Route Start Time Stop Time Status Last Admin Dose Admin Acetaminophen (Tylenol Tab) 650 mg Q4H PRN PO 11/24/16 15:15 12/24/16 15:14 11/25/16 14:39 650 MG Ondansetron HCl (Zofran Inj) 4 mg Q6H PRN IV 11/24/16 15:15 12/24/16 15:14 Levothyroxine Sodium (Synthroid Tab) 100 mcg DAILYBB PO 11/25/16 06:00 12/25/16 06:59 12/04/16 05:49 100 MCG Multivitamins (Multivitamin Tab) 1 tab DAILY PO 11/25/16 09:00 12/25/16 08:59 12/04/16 09:10 1 TAB Metoprolol Tartrate (Lopressor Tab) 50 mg BID PO 11/27/16 09:00 12/26/16 20:59 12/04/16 09:10 50 MG Vancomycin HCl (Vancomycin Oral Soln) 250 mg QID PO 11/27/16 22:15 12/07/16 22:14 12/04/16 13:01 250 MG Raspberry (Raspberry Syrup 5ml Cup) 5 ml QID PO 11/27/16 22:15 12/11/16 22:14 12/04/16 13:01 5 ML Oxycodone/ Acetaminophen (Percocet 5-325mg Tab) 1 tab Q4H PRN PO 11/28/16 11:15 12/12/16 11:14 12/04/16 09:10 1 TAB Polyethylene (Miralax Powder Packet) 17 gm DAILY PRN PO 11/29/16 09:15 12/29/16 09:14 Menthol/Zinc Oxide (Calmoseptine Oint) 1 appln BID PRN EXT 11/30/16 10:30 12/30/16 10:29 12/03/16 13:17 1 APPLN Warfarin Sodium (Coumadin Tab) 3 mg DAILY@16 PO 12/02/16 16:00 01/01/17 15:59 12/03/16 16:10 3 MG Losartan Potassium (coZAAR TAB) 50 mg DAILY PO 12/04/16 09:00 01/03/17 08:59 12/04/16 09:09 50 MG Objective Vital Signs Date Time Temp Pulse Resp B/P (MAP) Pulse Ox O2 Delivery O2 Flow Rate FiO2 12/04/16 10:59 36.6 55 18 150/82 (104) 97 Room Air 12/04/16 08:00 Room Air 12/04/16 07:24 36.7 65 16 127/74 (91) 95 Room Air 12/04/16 04:00 Room Air 12/03/16 23:59 Room Air 12/03/16 23:35 36.5 56 18 134/74 (94) 95 Room Air 12/03/16 20:00 96 Room Air 12/03/16 19:44 36.9 73 18 145/77 (99) 94 Room Air 12/03/16 16:00 95 Room Air 12/03/16 15:40 37.0 77 18 143/73 (96) 95 Room Air Physical Exam General Appearance: WD/WN, no apparent distress Eyes: normal inspection, sclerae normal ENT: normal ENT inspection, pharynx normal Neck: supple, no adenopathy, trachea midline Respiratory/Chest: lungs clear, normal breath sounds, no respiratory distress Cardiovascular: regular rate, rhythm, no gallop, no murmur Abdomen: normal bowel sounds, non tender, soft, no organomegaly Extremities: non-tender, + slow capillary refill Neurologic/Psychiatric: alert, oriented x 3 Skin: normal color, no rash Lymphatic: no adenopathy Laboratory Results RUN DATE: 11/27/16 [facility] LAB PAGE 1 RUN TIME: 2151 Specimen Inquiry PATIENT: ERICK BAR LOC: Monae U # : [id number] AGE/SX: 76/M ROOM: [facility] REG : 11/24/[address]: Kristie Kaur M.D. : 1940 BED: 1 DIS : STATUS: ADM IN TLOC: SPEC #: [id number] LISS: 11/27/16 STATUS: COMP REQ #: [id number] RECD: 11/27/[address]: Kristie Kaur M.D. SOURCE: STOOL ENTR: 11/27/[address]: Ji Allison, D.O. SPDESC: Shaheen Marshall MD, Stephen M., M.D. Long, Ronald M.D. Love, Lauren ., Mimi Alvarado , Jacobo Law M.D. Waddington, Thomas W., MD ORDERED: CDIFF TOXIN B COMMENTS: Has Specimen Been Obtained/Collected? Y Procedure Result Verified Site CDIFF TOXIN B GENE*(2 YR OR >) Final 11/27/16-2151 Positive for C. difficile toxin B gene RESULTS WERE ALSO CALLED TO [facility] INFECTION CONTROL ANSWERING MACHINE ON 11/27/16 BY SHANDA. Phoned results to [place] DUNCAN on 11/27/16 at 215 by Melanie Alicea. Results were verbalized back to SHANDA. Last 24 Hours Test 12/04/16 05:28 White Blood Count 34.75 K/uL Red Blood Count 5.55 M/uL Hemoglobin 12.1 g/dL Hematocrit 38.9 % Mean Corpuscular Volume 70.1 fL Mean Corpuscular Hemoglobin 21.8 pg Mean Corpuscular Hemoglobin Concent 31.1 g/dl Platelet Count 1083 K/uL Mean Platelet Volume 9.7 fL RDW Standard Deviation 49.2 fL RDW Coefficient of Variation 20.8 % Neutrophils % (Manual) 86.6 % Lymphocytes % (Manual) 1.7 % Monocytes % (Manual) 5.9 % Eosinophils % (Manual) 2.5 % Basophils % (Manual) 0.8 % Myelocytes % 2.5 % Neutrophils # (Manual) 30.09 K/uL Total Absolute Neutrophils 30.09 K/uL Lymphocytes # (Manual) 0.59 K/uL Total Absolute Lymphocytes 0.59 K/uL Monocytes # (Manual) 2.05 K/uL Eosinophils # (Manual) 0.87 K/uL Basophils # (Manual) 0.28 K/uL Myelocytes # 0.87 K/uL Hypersegmented Polys 1+ Toxic Granulation 1+ Anisocytosis PRESENT Microcytosis PRESENT Ovalocytes 1+ Echinocytes 1+ Prothrombin Time 16.5 SECONDS Prothromb Time International Ratio 1.5 Sodium Level 143 mmol/L Potassium Level 3.7 mmol/L Chloride Level 112 mmol/L Carbon Dioxide Level 24 mmol/L Anion Gap 7.0 mmol/L Blood Urea Nitrogen 15 mg/dl Creatinine 1.00 mg/dl Est Creatinine Clear Calc Drug Dose 60.5 ml/min Estimated GFR () 85.0 Estimated GFR (Non- 73.3 BUN/Creatinine Ratio 14.7 Random Glucose 80 mg/dl Calcium Level 7.7 mg/dl Magnesium Level 2.0 mg/dl Assessment and Plan 76-year-old male with severe peripheral arterial disease, status post left AKA , atrial fibrillation, now with sepsis, progressive gangrenous changes of right foot, and likely associated cellulitis. patient now status post right AKA, healing thus far now off Abx. Also with C. diff colitis, on vancomycin with improvement. Recommend prolonged tapering course of vancomycin given risk for recurrence.
[2016-12-04] MEDS: WARFARIN SOD 3 MG TAB PO SCH (16:09)
[2016-12-05] MEDS: LEVOTHYROXINE 100 MCG TAB PO SCH (06:23)
[2016-12-05 06:50] LABS: HEMATOCRIT 40.4 % (42-52)
[2016-12-05 07:10] LABS: INR 1.7 (0.9-1.1); PROTHROMBIN TIME (PATIENT) 18.6 SECONDS (9.0-12.0)
[2016-12-05 07:47] VITALS: BP 136/85; PULSE 109; TEMP 36.9; O2SAT 92
[2016-12-05 08:00] VITALS: O2SAT 92
[2016-12-05] MEDS: METOPROLOL TARTRATE 50 MG TAB PO SCH ×2 (10:11→20:07)
[2016-12-05] MEDS: VANCOMYCIN HCL 250 MG/5 ML SOLN PO SCH ×4 (10:11→20:07)
[2016-12-05] MEDS: RASPBERRY SYRUP 5 ML UDP PO SCH ×4 (10:11→20:07)
[2016-12-05] MEDS: MULTIVITAMIN TAB PO SCH (10:11)
[2016-12-05] MEDS: LOSARTAN POTASSIUM 50 MG TAB PO SCH (10:12)
[2016-12-05] MEDS: OXYCODONE/ACETAMINOPHEN 5-325 TAB PO PRN ×2 (10:24→14:27)
[2016-12-05] MEDS: ACETAMINOPHEN 325 MG TAB PO PRN (12:48)
[2016-12-05 15:40] VITALS: BP 116/71; PULSE 159; TEMP 36.7; O2SAT 95
[2016-12-05] MEDS ORDERED: SODIUM CHLORIDE 0.9% 500ML 500 ML IV ONE (15:45)
--- NOTE | 2016-12-05 15:46 | Progress Note ---
Internal Med Progress Note Date of Service: Dec 05, 2016. Provider Documentation: SUBJECTIVE: Seen and examined at bedside Feels well Denies RLE pain No new complaints Denies chest pain/SOB/Abd pain/dizziness Diarrhea resolved Poor Urine output. Will give IV fluids Dressing changed today OBJECTIVE: Vital Signs-as noted below Physical Exam: General Appearance:Moderately built and nourished, no apparent distress Head: normocephalic, Atraumatic Eyes: normal inspection, EOMI, PERRL Neck: supple, Trachea midline Respiratory/Chest: Normal breath sounds, CTA Cardiovascular: S1, S2, No murmur Abdomen/GI:Soft, Non tender, Bowel sounds present Extremities/Musculoskelatal: R AKA in bandage, LLE S/P amputation Neurologic/Psych:grossly no focal neurological deficits Skin: normal color, warm Lab data as noted below. ASSESSMENT & PLAN: SEVERE SEPSIS Likely sources: necrotic /ischemic rt lower limbs /C diff colitis Patient was admitted with leukocytosis, tachycardia, afebrile, no hypotension, POC lactate 2.44 s/p angiogram of rt lower ext : no vascular flow below rt Profunda femoris artery , recommend rt lower ext amputation S/P RT AKA by Dr Gallegos on 11/28/16 Appreciate vascular surgery Input Need to follow up with Vascular surgery as outpatient ID following SEVERE PERIPHERAL VASCULAR DISEASE RLE Doppler showed age indeterminate occlusion of superficial femoral artery, extensive atherosclerotic plaque within RLE, hemodynamically significant stenosis of the right common femoral artery Appreciate vascular surgery- Dr. 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 C. DIFF COLITIS : has been on broad spectrum abx due to above Continue PO vancomycin Day 11/20 contact isolation Diarrhea resolved ID following DIFFUSE RASH /NECK SWELLING /ALLERGIC REACTION TO CONTRAST DYE ; resolved with steroids and H1/H2 jose developed after angiogram /pt was pre medicated prior to study noted to have allergy to contrast dye prednisone /Benadryl D/chilo DELIRIUM /CONFUSION : Resolved Likely metabolic encephalopathy due to above MRI of brain combo shows no metastatic process delirium resolved after amputation of ischemic limb KARINA on CKD III : Creatinine improved 2.5 -> 1.0 continue to Hold Lasix as decreased Urine output losartan resumed Appreciate nephrology input HISTORY OF LUNG CANCER S/p radiation July 2013 CXR shows multiple lung nodules, ?metastatic appreciate Consult from pulmonology CT chest shows : Spiculated 5.2 cm mass in the right upper lobe with extension to the right hilum highly concerning for primary bronchogenic carcinoma. Cavitary 2.5 cm nodule in the right lower lobe is concerning for regional metastatic disease. 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 and doesn't want any more cancer work up PAROXYSMAL ATRIAL FIBRILLATION continue PO Lopressor continue Coumadin (resumed on 12/02) Monitor INR:1.7 today CODE STATUS DNR DISPOSITION: social service consulted will need rehab:bilateral amputation Plan to discharge to Rehab when accepted Contact : Son Mariusz Multani Terry Alvarez Vital Signs: Date Time Temp Pulse Resp B/P (MAP) Pulse Ox O2 Delivery O2 Flow Rate FiO2 12/05/16 15:40 36.7 159 22 116/71 (86) 95 Room Air 12/05/16 08:00 92 Room Air 2.0 12/05/16 07:47 36.9 109 20 136/85 (102) 92 Room Air 12/05/16 00:00 Room Air 12/04/16 23:20 36.9 62 16 136/66 (89) 94 Room Air 12/04/16 21:05 68 140/66 (90) 12/04/16 17:24 36.8 64 18 139/77 (97) 98 Room Air 12/04/16 16:39 37.0 73 16 96 Lab Results: Results Past 24 Hours Test 12/05/16 06:13 Range/Units Hemoglobin 12.8 14.0-18.0 g/dL Hematocrit 40.4 42-52 % Prothrombin Time 18.6 9.0-12.0 SECONDS Prothromb Time International Ratio 1.7 0.9-1.1
[2016-12-05 16:00] VITALS: PULSE 98
--- NOTE | 2016-12-05 16:28 | Infectious Disease Progress Nt ---
Progress Note Date of Service Dec 05, 2016. Subjective Pt evaluation today including: conversation w/ patient, physical exam, chart review, lab review, review of studies, conversation w/ life skills consultant, review of inpatient medication list Patient offering no new complaints today. Remains afebrile. Diarrhea better. Pain controlled. All Other Systems: Reviewed and Negative Medications Current Inpatient Medications Medications (Trade) Dose Ordered Sig/Greg Route Start Time Stop Time Status Last Admin Dose Admin Acetaminophen (Tylenol Tab) 650 mg Q4H PRN PO 11/24/16 15:15 12/24/16 15:14 12/05/16 12:48 650 MG Ondansetron HCl (Zofran Inj) 4 mg Q6H PRN IV 11/24/16 15:15 12/24/16 15:14 Levothyroxine Sodium (Synthroid Tab) 100 mcg DAILYBB PO 11/25/16 06:00 12/25/16 06:59 12/05/16 06:23 100 MCG Multivitamins (Multivitamin Tab) 1 tab DAILY PO 11/25/16 09:00 12/25/16 08:59 12/05/16 10:11 1 TAB Metoprolol Tartrate (Lopressor Tab) 50 mg BID PO 11/27/16 09:00 12/26/16 20:59 12/05/16 10:11 50 MG Vancomycin HCl (Vancomycin Oral Soln) 250 mg QID PO 11/27/16 22:15 12/16/16 22:14 12/05/16 12:49 250 MG Raspberry (Raspberry Syrup 5ml Cup) 5 ml QID PO 11/27/16 22:15 12/11/16 22:14 12/05/16 12:49 5 ML Oxycodone/ Acetaminophen (Percocet 5-325mg Tab) 1 tab Q4H PRN PO 11/28/16 11:15 12/12/16 11:14 12/05/16 14:27 1 TAB Polyethylene (Miralax Powder Packet) 17 gm DAILY PRN PO 11/29/16 09:15 12/29/16 09:14 Menthol/Zinc Oxide (Calmoseptine Oint) 1 appln BID PRN EXT 11/30/16 10:30 12/30/16 10:29 12/03/16 13:17 1 APPLN Warfarin Sodium (Coumadin Tab) 3 mg DAILY@16 PO 12/02/16 16:00 01/01/17 15:59 12/04/16 16:09 3 MG Losartan Potassium (coZAAR TAB) 50 mg DAILY PO 12/04/16 09:00 01/03/17 08:59 12/05/16 10:12 50 MG Sodium Chloride 500 ml @ 100 mls/hr Q5H ONCE IV 12/05/16 15:45 12/05/16 20:44 Objective Vital Signs Date Time Temp Pulse Resp B/P (MAP) Pulse Ox O2 Delivery O2 Flow Rate FiO2 12/05/16 16:00 Room Air 12/05/16 15:40 36.7 159 22 116/71 (86) 95 Room Air 12/05/16 08:00 92 Room Air 2.0 12/05/16 07:47 36.9 109 20 136/85 (102) 92 Room Air 12/05/16 00:00 Room Air 12/04/16 23:20 36.9 62 16 136/66 (89) 94 Room Air 12/04/16 21:05 68 140/66 (90) 12/04/16 17:24 36.8 64 18 139/77 (97) 98 Room Air 12/04/16 16:39 37.0 73 16 96 Physical Exam General Appearance: no apparent distress, + pertinent finding ( Chronically ill-appearing) Eyes: normal inspection, EOMI, sclerae normal ENT: normal ENT inspection, pharynx normal Neck: supple, no adenopathy, trachea midline Respiratory/Chest: chest non-tender, lungs clear, normal breath sounds, no respiratory distress Cardiovascular: no gallop, no murmur, + irregularly irregular Abdomen: normal bowel sounds, non tender, soft, no organomegaly Extremities: non-tender, + pertinent finding ( dressing intact right leg) Neurologic/Psychiatric: alert, oriented x 3 Skin: normal color, no rash Lymphatic: no adenopathy Laboratory Results Last 24 Hours Test 12/05/16 06:13 Hemoglobin 12.8 g/dL Hematocrit 40.4 % Prothrombin Time 18.6 SECONDS Prothromb Time International Ratio 1.7 Assessment and Plan 76-year-old male with severe peripheral arterial disease, status post left AKA , atrial fibrillation, now with sepsis, progressive gangrenous changes of right foot, and likely associated cellulitis. patient now status post right AKA, healing thus far now off Abx. Also with C. diff colitis, on vancomycin with improvement. Recommend prolonged tapering course of vancomycin given risk for recurrence.
[2016-12-05] MEDS: WARFARIN SOD 3 MG TAB PO SCH (17:06)
[2016-12-05 23:28] VITALS: BP 133/69; PULSE 68; TEMP 36.6; O2SAT 94
[2016-12-06] MEDS: OXYCODONE/ACETAMINOPHEN 5-325 TAB PO PRN ×2 (04:55→18:50)
[2016-12-06] MEDS: LEVOTHYROXINE 100 MCG TAB PO SCH (04:58)
[2016-12-06 07:32] LABS: INR 1.8 (0.9-1.1); PROTHROMBIN TIME (PATIENT) 19.8 SECONDS (9.0-12.0)
[2016-12-06 07:44] VITALS: BP 121/60; PULSE 84; TEMP 36.7; O2SAT 96
[2016-12-06] MEDS: METOPROLOL TARTRATE 50 MG TAB PO SCH ×2 (07:47→20:14)
[2016-12-06] MEDS: RASPBERRY SYRUP 5 ML UDP PO SCH ×4 (07:48→20:14)
[2016-12-06] MEDS: LOSARTAN POTASSIUM 50 MG TAB PO SCH (07:48)
[2016-12-06] MEDS: MULTIVITAMIN TAB PO SCH (07:48)
[2016-12-06] MEDS: VANCOMYCIN HCL 250 MG/5 ML SOLN PO SCH ×4 (07:49→20:14)
[2016-12-06 07:55] LABS: HEMATOCRIT 42.7 % (42-52); MEAN CELL VOLUME 72.4 fL (80-100); MEAN CORPUSCULAR HEMOGLOBIN 21.7 pg (25-34); MEAN PLATELET VOLUME 9.5 fL (7.4-10.4); PLATELET COUNT 1246 K/uL (130-400); WHITE BLOOD COUNT 32.57 K/uL (4.8-10.8)
[2016-12-06 07:58] LABS: ANISOCYTOSIS PRESENT; BASO % 0.3 %; BASO ABS # 0.11 K/uL (0-0.2); COMPLETE YES; EOS % 1.5 %; IG% 4.4 %; LYMPH % 6.7 %; LYMPH ABS # 2.19 K/uL (1.2-3.4); NEUT % 81.1 %; POIKILOCYTOSIS PRESENT; POLYCHROMASIA 1+
--- NOTE | 2016-12-06 13:05 | Progress Note ---
Internal Med Progress Note Date of Service: Dec 06, 2016. Provider Documentation: SUBJECTIVE: Seen and examined at bedside Noted elevated WBC, platelets on blood work. Discussed with patient and reconfirmed that patient preferred no further hematological work up Feels well Denies RLE pain No new complaints Denies chest pain/SOB/Abd pain/dizziness OBJECTIVE: Vital Signs-as noted below Physical Exam: General Appearance:Moderately built and nourished, no apparent distress Head: normocephalic, Atraumatic Eyes: normal inspection, EOMI, PERRL Neck: supple, Trachea midline Respiratory/Chest: Normal breath sounds, CTA Cardiovascular: S1, S2, No murmur Abdomen/GI:Soft, Non tender, Bowel sounds present Extremities/Musculoskelatal: R AKA in bandage, LLE S/P amputation Neurologic/Psych:grossly no focal neurological deficits Skin: normal color, warm Lab data as noted below. ASSESSMENT & PLAN: SEVERE SEPSIS Likely sources: necrotic /ischemic rt lower limbs /C diff colitis Patient was admitted with leukocytosis, tachycardia, afebrile, no hypotension, POC lactate 2.44 s/p angiogram of rt lower ext : no vascular flow below rt Profunda femoris artery , recommend rt lower ext amputation S/P RT AKA by Dr Gallegos on 11/28/16 Appreciate vascular surgery Input Need to follow up with Vascular surgery as outpatient ID following SEVERE PERIPHERAL VASCULAR DISEASE RLE Doppler showed age indeterminate occlusion of superficial femoral artery, extensive atherosclerotic plaque within RLE, hemodynamically significant stenosis of the right common femoral artery Appreciate vascular surgery- Dr. 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 C. DIFF COLITIS : has been on broad spectrum abx due to above Continue PO vancomycin Day 12/20 contact isolation Diarrhea resolved ID following DIFFUSE RASH /NECK SWELLING /ALLERGIC REACTION TO CONTRAST DYE ; resolved with steroids and H1/H2 jose developed after angiogram /pt was pre medicated prior to study noted to have allergy to contrast dye prednisone /Benadryl Discontinued DELIRIUM /CONFUSION : Resolved Likely metabolic encephalopathy due to above MRI of brain combo shows no metastatic process delirium resolved after amputation of ischemic limb KARINA on CKD III : Creatinine improved 2.5 -> 1.0 continue to Hold Lasix as decreased Urine output losartan resumed Appreciate nephrology input Cr stable HISTORY OF LUNG CANCER S/p radiation July 2013 CXR shows multiple lung nodules, ?metastatic appreciate Consult from pulmonology CT chest shows : Spiculated 5.2 cm mass in the right upper lobe with extension to the right hilum highly concerning for primary bronchogenic carcinoma. Cavitary 2.5 cm nodule in the right lower lobe is concerning for regional metastatic disease. report of CT Chest updated to pt and family MRI of brain combo ordered show no intracranial mets poor prognosis for aggressive lung malignancy Heme Onch consulted but patient prefers to follow up with his Nurse Unit Manager and doesn't want any more cancer work up PAROXYSMAL ATRIAL FIBRILLATION continue PO Lopressor continue Coumadin (resumed on 12/02) Monitor INR:1.8 today CODE STATUS DNR DISPOSITION: social service consulted will need rehab:bilateral amputation Plan to discharge to Rehab when accepted Awaiting for placement Contact : Son Mariusz Multani Terry Alvarez Vital Signs: Date Time Temp Pulse Resp B/P (MAP) Pulse Ox O2 Delivery O2 Flow Rate FiO2 12/06/16 08:00 Room Air 12/06/16 07:44 36.7 84 18 121/60 (80) 96 Room Air 12/06/16 00:17 Room Air 12/05/16 23:28 36.6 68 16 133/69 (90) 94 Room Air 12/05/16 20:26 Room Air 12/05/16 16:00 98 12/05/16 16:00 Room Air 12/05/16 15:40 36.7 159 22 116/71 (86) 95 Room Air Lab Results: Results Past 24 Hours Test 12/06/16 07:12 Range/Units White Blood Count 32.57 4.8-10.8 K/uL Red Blood Count 5.90 4.7-6.1 M/uL Hemoglobin 12.8 14.0-18.0 g/dL Hematocrit 42.7 42-52 % Mean Corpuscular Volume 72.4 80-100 fL Mean Corpuscular Hemoglobin 21.7 25-34 pg Mean Corpuscular Hemoglobin Concent 30.0 32-36 g/dl Platelet Count 1246 130-400 K/uL Mean Platelet Volume 9.5 7.4-10.4 fL Neutrophils (%) (Auto) 81.1 % Lymphocytes (%) (Auto) 6.7 % Monocytes (%) (Auto) 6.0 % Eosinophils (%) (Auto) 1.5 % Basophils (%) (Auto) 0.3 % Neutrophils # (Auto) 26.37 1.4-6.5 K/uL Lymphocytes # (Auto) 2.19 1.2-3.4 K/uL Monocytes # (Auto) 1.97 0.11-0.59 K/uL Eosinophils # (Auto) 0.50 0-0.5 K/uL Basophils # (Auto) 0.11 0-0.2 K/uL RDW Standard Deviation 50.8 36.4-46.3 fL RDW Coefficient of Variation 22.2 11.5-14.5 % Immature Granulocyte % (Auto) 4.4 % Immature Granulocyte # (Auto) 1.43 0.00-0.02 K/uL Polychromasia 1+ Poikilocytosis PRESENT Anisocytosis PRESENT Prothrombin Time 19.8 9.0-12.0 SECONDS Prothromb Time International Ratio 1.8 0.9-1.1
[2016-12-06 15:25] VITALS: BP 124/63; PULSE 137; TEMP 36.7; O2SAT 94
[2016-12-06] MEDS: WARFARIN SOD 3 MG TAB PO SCH (16:50)
[2016-12-06] MEDS: ACETAMINOPHEN 325 MG TAB PO PRN (21:45)
[2016-12-07 00:22] VITALS: BP_SYST 101; BP_SYST 161; BP_DIAS 65; PULSE 55; TEMP 36.7; O2SAT 96
[2016-12-07] MEDS: LEVOTHYROXINE 100 MCG TAB PO SCH (06:09)
[2016-12-07 06:30] LABS: INR 2.2 (0.9-1.1); PROTHROMBIN TIME (PATIENT) 24.3 SECONDS (9.0-12.0)
[2016-12-07 07:16] VITALS: BP 138/70; PULSE 67; TEMP 36.6; O2SAT 97
[2016-12-07] MEDS: METOPROLOL TARTRATE 50 MG TAB PO SCH ×2 (07:40→20:07)
[2016-12-07] MEDS: MULTIVITAMIN TAB PO SCH (07:41)
[2016-12-07] MEDS: LOSARTAN POTASSIUM 50 MG TAB PO SCH (07:41)
[2016-12-07] MEDS: VANCOMYCIN HCL 250 MG/5 ML SOLN PO SCH ×4 (07:42→20:07)
[2016-12-07] MEDS: RASPBERRY SYRUP 5 ML UDP PO SCH ×4 (07:42→20:07)
[2016-12-07] MEDS: OXYCODONE/ACETAMINOPHEN 5-325 TAB PO PRN (13:52)
[2016-12-07 14:58] VITALS: BP 151/91; PULSE 67; TEMP 36.9; O2SAT 94
--- NOTE | 2016-12-07 16:32 | Progress Note ---
Internal Med Progress Note Date of Service: Dec 07, 2016. Provider Documentation: SUBJECTIVE: Seen and examined at bedside Doing well No diarrhea Denies RLE pain No new complaints Denies chest pain/SOB/Abd pain/dizziness OBJECTIVE: Vital Signs-as noted below Physical Exam: General Appearance:Moderately built and nourished, no apparent distress Head: normocephalic, Atraumatic Eyes: normal inspection, EOMI, PERRL Neck: supple, Trachea midline Respiratory/Chest: Normal breath sounds, CTA Cardiovascular: S1, S2, No murmur Abdomen/GI:Soft, Non tender, Bowel sounds present Extremities/Musculoskelatal: R AKA in bandage, LLE S/P amputation Neurologic/Psych:grossly no focal neurological deficits Skin: normal color, warm Lab data as noted below. ASSESSMENT & PLAN: SEVERE SEPSIS Likely sources: necrotic /ischemic rt lower limbs /C diff colitis Patient was admitted with leukocytosis, tachycardia, afebrile, no hypotension, POC lactate 2.44 s/p angiogram of rt lower ext : no vascular flow below rt Profunda femoris artery , recommend rt lower ext amputation S/P RT AKA by Dr Gallegos on 11/28/16 Appreciate vascular surgery Input Need to follow up with Vascular surgery as outpatient ID following SEVERE PERIPHERAL VASCULAR DISEASE RLE Doppler showed age indeterminate occlusion of superficial femoral artery, extensive atherosclerotic plaque within RLE, hemodynamically significant stenosis of the right common femoral artery Appreciate vascular surgery- Dr. 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 C. DIFF COLITIS : has been on broad spectrum abx due to above Continue PO vancomycin Day 01/20 contact isolation Diarrhea resolved ID following DIFFUSE RASH /NECK SWELLING /ALLERGIC REACTION TO CONTRAST DYE ; resolved with steroids and H1/H2 jose developed after angiogram /pt was pre medicated prior to study noted to have allergy to contrast dye prednisone /Benadryl Discontinued DELIRIUM /CONFUSION : Resolved Likely metabolic encephalopathy due to above MRI of brain combo shows no metastatic process delirium resolved after amputation of ischemic limb KARINA on CKD III : Creatinine improved 2.5 -> 1.0 continue to Hold Lasix as decreased Urine output losartan resumed Appreciate nephrology input Cr stable HISTORY OF LUNG CANCER S/p radiation July 2013 CXR shows multiple lung nodules, ?metastatic appreciate Consult from pulmonology CT chest shows : Spiculated 5.2 cm mass in the right upper lobe with extension to the right hilum highly concerning for primary bronchogenic carcinoma. Cavitary 2.5 cm nodule in the right lower lobe is concerning for regional metastatic disease. report of CT Chest updated to pt and family MRI of brain combo ordered show no intracranial mets poor prognosis for aggressive lung malignancy Heme Onch consulted but patient prefers to follow up with his Public Information Officer and doesn't want any more cancer work up PAROXYSMAL ATRIAL FIBRILLATION continue PO Lopressor continue Coumadin (resumed on 12/02) Monitor INR:2.2 today CODE STATUS DNR DISPOSITION: social service consulted will need rehab:bilateral amputation Plan to discharge to Rehab when accepted Awaiting for placement Contact : Son Mariusz Multani Terry Alvarez Vital Signs: Date Time Temp Pulse Resp B/P (MAP) Pulse Ox O2 Delivery O2 Flow Rate FiO2 12/07/16 14:58 36.9 67 20 151/91 (111) 94 Room Air 12/07/16 08:00 Room Air 12/07/16 07:16 36.6 67 18 138/70 (92) 97 Room Air 12/07/16 00:22 36.7 55 18 161/65 (97) 96 Room Air 12/06/16 23:59 Room Air 12/06/16 20:47 Room Air Lab Results: Results Past 24 Hours Test 12/07/16 05:50 Range/Units Prothrombin Time 24.3 9.0-12.0 SECONDS Prothromb Time International Ratio 2.2 0.9-1.1
[2016-12-07] MEDS: WARFARIN SOD 3 MG TAB PO SCH (17:47)
[2016-12-08 00:06] VITALS: BP 142/73; PULSE 60; TEMP 36.8; O2SAT 94
[2016-12-08] MEDS: LEVOTHYROXINE 100 MCG TAB PO SCH (05:48)
[2016-12-08 07:25] VITALS: BP 137/68; PULSE 60; TEMP 36.9; O2SAT 98
[2016-12-08 07:41] LABS: INR 2.3 (0.9-1.1); PROTHROMBIN TIME (PATIENT) 25.4 SECONDS (9.0-12.0)
[2016-12-08 08:14] LABS: BUN/CREATININE RATIO 14.6 (10-20); CALCIUM 8.6 mg/dl (8.5-10.1); CREATININE 1.3 mg/dl (0.60-1.40); POTASSIUM 3.7 mmol/L (3.5-5.1)
[2016-12-08] MEDS: VANCOMYCIN HCL 250 MG/5 ML SOLN PO SCH ×2 (08:40→13:33)
[2016-12-08] MEDS: RASPBERRY SYRUP 5 ML UDP PO SCH ×2 (08:40→13:32)
[2016-12-08] MEDS: METOPROLOL TARTRATE 50 MG TAB PO SCH (08:40)
[2016-12-08] MEDS: MULTIVITAMIN TAB PO SCH (08:40)
[2016-12-08] MEDS: LOSARTAN POTASSIUM 50 MG TAB PO SCH (08:41)
[2016-12-08] MEDS: OXYCODONE/ACETAMINOPHEN 5-325 TAB PO PRN (13:39)
[2016-12-08 13:47] VITALS: BP 137/68; PULSE 60; TEMP 36.9; O2SAT 98
--- NOTE | 2016-12-08 13:52 | Progress Note ---
Internal Med Progress Note Date of Service: Dec 08, 2016. Provider Documentation: SUBJECTIVE: Seen and examined at bedside Clinically no significant change from yesterday Doing well today No diarrhea Denies RLE pain No new complaints Denies chest pain/SOB/Abd pain/dizziness OBJECTIVE: Vital Signs-as noted below Physical Exam: General Appearance:Moderately built and nourished, no apparent distress Head: normocephalic, Atraumatic Eyes: normal inspection, EOMI, PERRL Neck: supple, Trachea midline Respiratory/Chest: Normal breath sounds, CTA Cardiovascular: S1, S2, No murmur Abdomen/GI:Soft, Non tender, Bowel sounds present Extremities/Musculoskelatal: R AKA in bandage, LLE S/P amputation Neurologic/Psych:grossly no focal neurological deficits Skin: normal color, warm Lab data as noted below. ASSESSMENT & PLAN: SEVERE SEPSIS Likely sources: necrotic /ischemic rt lower limbs /C diff colitis Patient was admitted with leukocytosis, tachycardia, afebrile, no hypotension, POC lactate 2.44 s/p angiogram of rt lower ext : no vascular flow below rt Profunda femoris artery , recommend rt lower ext amputation S/P RT AKA by Dr Gallegos on 11/28/16 Appreciate vascular surgery Input Need to follow up with Vascular surgery as outpatient ID following SEVERE PERIPHERAL VASCULAR DISEASE RLE Doppler showed age indeterminate occlusion of superficial femoral artery, extensive atherosclerotic plaque within RLE, hemodynamically significant stenosis of the right common femoral artery Appreciate vascular surgery- Dr. 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 C. DIFF COLITIS : has been on broad spectrum abx due to above Continue PO vancomycin Day 12 >>>>>will do prolonged taper contact isolation Diarrhea resolved ID following DIFFUSE RASH /NECK SWELLING /ALLERGIC REACTION TO CONTRAST DYE ; resolved with steroids and H1/H2 jose developed after angiogram /pt was pre medicated prior to study noted to have allergy to contrast dye prednisone /Benadryl Discontinued DELIRIUM /CONFUSION : Resolved Likely metabolic encephalopathy due to above MRI of brain combo shows no metastatic process delirium resolved after amputation of ischemic limb KARINA on CKD III : Creatinine improved 2.5 -> 1.0 continue to Hold Lasix as decreased Urine output losartan resumed Appreciate nephrology input Cr stable HISTORY OF LUNG CANCER S/p radiation July 2013 CXR shows multiple lung nodules, ?metastatic appreciate Consult from pulmonology CT chest shows : Spiculated 5.2 cm mass in the right upper lobe with extension to the right hilum highly concerning for primary bronchogenic carcinoma. Cavitary 2.5 cm nodule in the right lower lobe is concerning for regional metastatic disease. report of CT Chest updated to pt and family MRI of brain combo ordered show no intracranial mets poor prognosis for aggressive lung malignancy Heme Onch consulted but patient prefers to follow up with his Paper Core Machine Operator and doesn't want any more cancer work up PAROXYSMAL ATRIAL FIBRILLATION continue PO Lopressor continue Coumadin (resumed on 12/02) Monitor INR:2.3 today CODE STATUS DNR DISPOSITION: Contact : Son Mariusz Multani Terry Alvarez social service consulted Plan to discharge to Rehab facility today Follow up with your Primary Care physician in 1 week Follow up with your surgeon Celeste in 2 weeks as advised (Office will call with appointment) Follow up with your Paper Core Machine Operator as needed If you would like to follow up with Oncology Dr.Nilesh Murillo. Please call for an appointment Seek immediate medical attention if your symptoms reoccur or worsen Get PT/INR checked on 12/09/16 and follow up with your doctor at rehab facility for further Coumadin dosage Complete the Vancomycin (Antibiotic course as prescribed) Vancomycin Tapering course: Start taking QID for 2 days, then TID X 1week, BID for 1 week, Daily for 1 week and stop Vital Signs: Date Time Temp Pulse Resp B/P (MAP) Pulse Ox O2 Delivery O2 Flow Rate FiO2 12/08/16 13:47 36.9 60 16 98 Room Air 12/08/16 08:00 Room Air 12/08/16 07:25 36.9 60 16 137/68 (91) 98 12/08/16 00:06 36.8 60 18 142/73 (96) 94 Room Air 12/07/16 23:52 Room Air 12/07/16 21:12 Room Air 12/07/16 16:00 Room Air 12/07/16 14:58 36.9 67 20 151/91 (111) 94 Room Air Lab Results: Results Past 24 Hours Test 12/08/16 06:46 Range/Units Hemoglobin 11.8 14.0-18.0 g/dL Hematocrit 41.0 42-52 % Prothrombin Time 25.4 9.0-12.0 SECONDS Prothromb Time International Ratio 2.3 0.9-1.1 Sodium Level 143 136-145 mmol/L Potassium Level 3.7 3.5-5.1 mmol/L Chloride Level 109 98-107 mmol/L Carbon Dioxide Level 24 21-32 mmol/L Anion Gap 10.0 3-11 mmol/L Blood Urea Nitrogen 19 7-18 mg/dl Creatinine 1.30 0.60-1.40 mg/dl Est Creatinine Clear Calc Drug Dose 46.5 ml/min Estimated GFR () 61.9 Estimated GFR (Non- 53.4 BUN/Creatinine Ratio 14.6 10-20 Random Glucose 76 70-99 mg/dl Calcium Level 8.6 8.5-10.1 mg/dl
[2016-12-08] MEDS ORDERED: VANC5CAP PO (14:15)
[2016-12-08] MEDS ORDERED: OXYC-57 PO (14:15)
--- NOTE | 2016-12-08 14:20 | Discharge Summary ---
Discharge Summary Date of Service Dec 08, 2016. Discharge Summary Admission Date: Nov 24, 2016 at 14:48 Discharge Date: Dec 08, 2016 Discharge Disposition: senior living facility Principal Diagnosis: Sepsis, C.diff colitis, PAD S/P Right AKA Procedures: S/P RT AKA Brain: 1. No evidence of intracranial metastasis 2. No evidence of acute or subacute infarction 3. Bilateral mastoid effusions 4. Foci of increased T2 and FLAIR signal within the white matter likely on a small vessel basis LE Arterial doppler: 1. 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 Partial distal reconstitution although flow distal to this occlusion is markedly dampened and monophasic. No flow within the right dorsalis pedis and peroneal arteries which suggests occlusion. Dampened, monophasic flow within the popliteal, anterior tibial and posterior tibial arteries. 2. Extensive atherosclerotic plaque within the right lower extremity. 3. Findings suggestive of a hemodynamically significant stenosis of the right common femoral artery. CT chest: 1. Spiculated 5.2 cm mass in the right upper lobe with extension to the right hilum highly concerning for primary bronchogenic carcinoma. Cavitary 2.5 cm nodule in the right lower lobe is concerning for regional metastatic disease. 2. Allowing for noncontrast technique, no evidence of lymphadenopathy. PET/CT may be helpful. 3. Partially calcified left lower lobe nodule may represent a calcified granuloma but is somewhat indeterminate. If a PET/CT were obtained, this would be expected to be photopenic in setting of a granuloma. 4. Enlarged main pulmonary artery suggests pulmonary hypertension. Consultations: Vascular surgery, Heme onchology, ID, Nephrology, Pulmonary, Critical Care Pending Studies/Follow-Up: Follow up with your Primary Care physician in 1 week Follow up with your surgeon in 2 weeks as advised (Office will call with appointment) Follow up with your Manager Multicultural as needed If you would like to follow up with Oncology Dr.Nilesh Murillo. Please call for an appointment Seek immediate medical attention if your symptoms reoccur or worsen Get PT/INR checked on 12/09/16 and follow up with your doctor at rehab facility for further Coumadin dosage Complete the Vancomycin (Antibiotic course as prescribed) Vancomycin Tapering course: Start taking QID for 2 days, then TID X 1week, BID for 1 week, Daily for 1 week and stop Medication Reconciliation New Medications: Vancomycin Hcl (Vancomycin) 125 Mg Cap 125 MG PO UD for 23 Days, #50 CAP Start taking QID for 2 days, then TID X 1week, BID for 1 week, Daily for 1 week and stop Metoprolol Tartrate (Lopressor) (Lopressor) 50 Mg Tab 50 MG PO BID for 30 Days, #60 TAB Oxycodone/Acetaminophen 5MG/325MG (Percocet 5MG/325MG) Tab 1 TAB PO Q4H PRN for Pain for 3 Days, #15 TAB PAIN Polyethylene (Miralax) 17 Gm Pow 17 GM PO DAILY PRN for Constipation for 30 Days Continued Medications: Furosemide (Lasix) 20 Mg Tab 20 MG PO DAILY PRN for swelling, TAB Levothyroxine Sodium (Synthroid) 100 Mcg Tab 100 MCG PO DAILY, TAB Losartan Potassium (Cozaar) 50 Mg Tab 50 MG PO DAILY, TAB Multivitamin (Multivitamin) Tab 1 TAB PO DAILY, TAB Temazepam (Restoril) 30 Mg Cap 30 MG PO HS PRN for ., #10 CAP (This prescription has been renewed) Testosterone Enanthate (Testosterone Enanthate) 200 Mg/Ml Inj 1/2 CC every 2 weeks Warfarin Sod (Jantoven) 3 Mg Tab 3 MG PO DAILY, TAB Discontinued Medications: Hydrocodone/Acetaminophen 10MG/325MG ([place] 10MG/325MG) Tab 1 TAB PO Q6H PRN for Pain, #10 TAB PRN PAIN Admission Information HPI (per Admitting provider): This is a 76 year old male with PMH of peripheral vascular disease s/p LLE vascular procedures and left AKA, lung cancer s/p radiation in 2013, HTN, paroxysmal atrial fibrillation, myelodysplastic disease, thrombophilia, hypothyroidism, chronic pain syndrome, and other problems listed below who presents to the ED for RLE redness. Pt follows with Dr. Adams Amezcua for primary care. Patient reports 1 month ago he scraped his right anterior wagner on a restroom stall while using his scooter. There was initially pain and erythema at the site which improved. Then 1 week ago patient cut his skin while clipping his right great toenail and subsequently developed erythema on the right lower leg. Patient was started on Bactrim 3 days ago by his PCP without improvement. Pt denies purulent drainage but states the toe was bleeding profusely when he clipped it. He therefore stopped his Coumadin 1 week ago and the bleeding subsided. Pt was taking his PRN for past few days due to RLE swelling. Pt denies fever, chills, night sweats, weight loss, chest pain, SOB, cough, abdominal pain, N/V/D, dysuria, frequency, stroke like symptoms. His notes his WBC and platelets were elevated in October 2016. Pt is scheduled for a chest CT tomorrow 11/25/16 to follow up his lung cancer. No recent oncology follow up. Last CT chest was in 2014. Physical Exam (per Admitting): General Appearance: WD/WN, no apparent distress Head: normocephalic, atraumatic Eyes: normal inspection, PERRL, EOMI, sclerae normal ENT: hearing grossly normal, pharynx normal Neck: supple, trachea midline Respiratory/Chest: lungs clear, normal breath sounds, no respiratory distress, no accessory muscle use Cardiovascular: no murmur, + tachycardia (90's, regular) Abdomen/GI: normal bowel sounds, non tender, soft Extremities/Musculoskelatal: no calf tenderness, no pedal edema, + pertinent finding (s/p LLE AKA. unable to palpate RLE DP pulse. hair loss of right toes. ) Neurologic/Psych: alert, normal mood/affect, oriented x 3, + pertinent finding (sensation to light touch intact distal RLE) Skin: warm/dry, + pertinent finding (right wagner with multiple superficial abrasions with scabbing. no active drainage. erythema right anterior, medial, and posterior calf. right great toe with healing abrasion. no active bleeding or drainage. ecchymosis of right great toe and right 2nd toe. pale distal RLE.) Hospital Course SEVERE SEPSIS Likely sources: necrotic /ischemic rt lower limbs /C diff colitis Patient was admitted with leukocytosis, tachycardia, afebrile, no hypotension, POC lactate 2.44 s/p angiogram of rt lower ext : no vascular flow below rt Profunda femoris artery , recommend rt lower ext amputation S/P RT AKA by Dr Gallegos on 11/28/16 Appreciate vascular surgery Input Need to follow up with Vascular surgery as outpatient ID following SEVERE PERIPHERAL VASCULAR DISEASE RLE Doppler showed age indeterminate occlusion of superficial femoral artery, extensive atherosclerotic plaque within RLE, hemodynamically significant stenosis of the right common femoral artery Appreciate vascular surgery- Dr. 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 C. DIFF COLITIS : has been on broad spectrum abx due to above Continue PO vancomycin Day 02/19 >>>>>will do prolonged taper contact isolation Diarrhea resolved ID following DIFFUSE RASH /NECK SWELLING /ALLERGIC REACTION TO CONTRAST DYE ; resolved with steroids and H1/H2 jose developed after angiogram /pt was pre medicated prior to study noted to have allergy to contrast dye prednisone /Benadryl Discontinued DELIRIUM /CONFUSION : Resolved Likely metabolic encephalopathy due to above MRI of brain combo shows no metastatic process delirium resolved after amputation of ischemic limb KARINA on CKD III : Creatinine improved 2.5 -> 1.0 continue to Hold Lasix as decreased Urine output losartan resumed Appreciate nephrology input Cr stable HISTORY OF LUNG CANCER S/p radiation July 2013 CXR shows multiple lung nodules, ?metastatic appreciate Consult from pulmonology CT chest shows : Spiculated 5.2 cm mass in the right upper lobe with extension to the right hilum highly concerning for primary bronchogenic carcinoma. Cavitary 2.5 cm nodule in the right lower lobe is concerning for regional metastatic disease. report of CT Chest updated to pt and family MRI of brain combo ordered show no intracranial mets poor prognosis for aggressive lung malignancy Heme Onch consulted but patient prefers to follow up with his Manager Multicultural and doesn't want any more cancer work up PAROXYSMAL ATRIAL FIBRILLATION continue PO Lopressor continue Coumadin (resumed on 12/02) Monitor INR:2.3 today CODE STATUS DNR DISPOSITION: Contact : Son Mariusz Multani Terry Alvarez social service consulted Plan to discharge to Rehab facility today Follow up with your Primary Care physician in 1 week Follow up with your surgeon Celeste in 2 weeks as advised (Office will call with appointment) Follow up with your Manager Multicultural as needed If you would like to follow up with Oncology Dr.Nilesh Murillo. Please call for an appointment Seek immediate medical attention if your symptoms reoccur or worsen Get PT/INR checked on 12/09/16 and follow up with your doctor at rehab facility for further Coumadin dosage Complete the Vancomycin (Antibiotic course as prescribed) Vancomycin Tapering course: Start taking QID for 2 days, then TID X 1week, BID for 1 week, Daily for 1 week and stop Total time spent on discharge = 36 minutes This includes examination of the patient, discharge planning, medication reconciliation, and communication with other providers. Discharge Instructions Discharge Instructions Date of Service Dec 08, 2016. Admission Reason for Admission: Cellulitis Of Right Leg, Sepsis Discharge Discharge Diagnosis / Problem: Sepsis, C.diff colitis, PAD S/P Right AKA Discharge Goals Goal(s): Decrease discomfort, Improve function Activity Recommendations Activity Limitations: resume your previous activity Exercise/Sports Limitations: as tolerated . Instructions / Follow-Up Instructions / Follow-Up Follow up with your Primary Care physician in 1 week Follow up with your surgeon in 2 weeks as advised (Office will call with appointment) Follow up with your Manager Multicultural as needed If you would like to follow up with Oncology Dr.Nilesh Murillo. Please call for an appointment Seek immediate medical attention if your symptoms reoccur or worsen Get PT/INR checked on 12/09/16 and follow up with your doctor at rehab facility for further Coumadin dosage Complete the Vancomycin (Antibiotic course as prescribed) Vancomycin Tapering course: Start taking QID for 2 days, then TID X 1week, BID for 1 week, Daily for 1 week and stop Current Hospital Diet Patient's current hospital diet: AHA Diet (Heart Healthy) Discharge Diet Recommended Diet: AHA Diet (Heart Healthy) Procedures Procedures Performed: Right Above the knee Amputation Pending Studies Studies pending at discharge: no Medical Emergencies . Who to Call and When: Medical Emergencies: If at any time you feel your situation is an emergency, please call 911 immediately. . Non-Emergent Contact Non-Emergency issues call your: Primary Care Provider, Surgeon Call Non-Emergent contact if: you have a fever, your pain is not controlled, your pain is worsening, your pain is unusual for you, your pain is concerning you, wound has increased drainage, wound has increased redness, wound has increased pain, you have any medication questions Seek immediate medical attention if your symptoms reoccur or worsen . . "Provider Documentation" section prepared by Nishant Ramírez. . VTE Core Measure Inpt VTE Proph given/why not?: Warfarin (Coumadin)
== END 2016-12-08 16:03 | DRG 853 ==
LOC: C.EDB 10:50 → C.2T 14:48 → UNDOADMIN 14:48 → ENRESERV 16:00 → C.2T 11-25 23:10 → C.2E 11-25 23:10 → C.2T 11-27 17:18 → C.MSICU 11-28 11:18 → C.2T 11-28 11:18 → EDBEDREQ 11-28 12:07 → ENRESERV 11-28 12:27 → C.2T 11-29 13:45 → EDBEDREQ 12-04 15:19 → ENRESERV 12-04 15:46 → C.MS4W 12-04 16:24
PROVIDERS: ADMIT Hospitalist; ATTEND Internal Medicine
PROC: 04LK3DZ Occlusion of Right Femoral Artery with Intraluminal Device, Percutaneous Approach (ICD-10-PCS; 2016-11-27)
PROC: 0Y6C0Z3 Detachment at Right Upper Leg, Low, Open Approach (ICD-10-PCS; principal; 2016-11-28 09:00)
DX: A41.9 Sepsis, unspecified organism (principal); G93.41 Metabolic encephalopathy; L03.115 Cellulitis of right lower limb; I70.261 Atherosclerosis of native arteries of extremities with gangrene, right leg; N17.9 Acute kidney failure, unspecified; A04.72 Enterocolitis due to Clostridium difficile, not specified as recurrent; D47.1 Chronic myeloproliferative disease; C34.91 Malignant neoplasm of unspecified part of right bronchus or lung; C78.01 Secondary malignant neoplasm of right lung; T50.8X5A Adverse effect of diagnostic agents, initial encounter; L27.0 Generalized skin eruption due to drugs and medicaments taken internally; E87.5 Hyperkalemia; I70.221 Atherosclerosis of native arteries of extremities with rest pain, right leg; D47.3 Essential (hemorrhagic) thrombocythemia; I73.1 Thromboangiitis obliterans [Buerger's disease]; I48.0 Paroxysmal atrial fibrillation; I13.10 Hypertensive heart and chronic kidney disease without heart failure, with stage 1 through stage 4 chronic kidney disease, or unspecified chronic kidney disease; N18.3 Chronic kidney disease, stage 3 (moderate); J44.9 Chronic obstructive pulmonary disease, unspecified; E03.9 Hypothyroidism, unspecified; G89.29 Other chronic pain; Z79.899 Other long term (current) drug therapy; Z79.01 Long term (current) use of anticoagulants; Z66 Do not resuscitate; Z89.612 Acquired absence of left leg above knee; Z96.651 Presence of right artificial knee joint; Z85.118 Personal history of other malignant neoplasm of bronchus and lung; Z92.3 Personal history of irradiation; Z87.891 Personal history of nicotine dependence; Z82.49 Family history of ischemic heart disease and other diseases of the circulatory system; Z84.1 Family history of disorders of kidney and ureter

== ENCOUNTER → 2017-02-23 | Outpatient (CLI) | payer OTHER ==
[~2017-02-23] MED LIST: FURO-85 PO; LEVO100T PO; LOSA50TA6 PO; METO50TA16 PO; MRLP17X PO; MULT-506 PO; OXYC-57 PO; TEMA30CA4 PO; TEST1INJ3; VANC5CAP PO; WARF3TAB6 PO
--- NOTE | 2017-02-23 13:24 | DIAGNOSTIC IMAGING REPORT ---
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 COMPARISON STUDY: Chest CT dated 11/25/2016 FINDINGS: The patient was injected with 11 mCi of F 18 labeled FDG. Following the standard induction phase, PET/CT scanning is performed from the skull base to the upper thigh region. Within the neck, there is no pathologic FDG activity. There is a small left maxillary sinus air-fluid level. Within the chest, there is a right upper lobe mass with extension to the hilum. This is irregularly marginated and measures 5.5 cm in diameter. This mass demonstrates peripheral increased FDG activity possibly indicating central necrosis. This lesion is an FDG maximum of 5.3. Also evident is a right lower lobe irregularly marginated 24 mm pulmonary nodule. This is FDG avid with SUV maximum of 5.1. There is no pathologic mediastinal miriam activity. There is a calcified granuloma within the left lower lobe. There are no pleural effusions. Within the abdomen and pelvis, there is physiologic urinary tract and bowel activity. The spleen is enlarged measuring 15.8 cm. There is no pathologic hepatic or splenic activity. There is no pathologic adrenal gland activity. There is no pathologic miriam activity within the abdomen or pelvis. There is cholelithiasis. There is a 43 mm right renal cyst with peripheral rim calcification. The prostate is enlarged. Vascular stents are visualized. There is diffuse increased marrow activity, possibly secondary to a hypercellular or hyperstimulated marrow. IMPRESSION: 1. 5.5 cm right upper lobe pulmonary mass with extension to the hilum. This is FDG avid with SUV maximum of 5.3. There is probable central necrosis. 2. 24 mm FDG avid right lower lobe pulmonary mass with SUV maximum of 5.1 3. No evidence of FDG avid mediastinal adenopathy 4. Splenomegaly (15.8 cm) 5. Nonspecific diffuse increased marrow activity, possibly secondary to a hypercellular hyperstimulated marrow Electronically signed by: Vu Ambriz M.D. 02/23/2017 1:23 PM Dictated Date/Time: 02/23/2017 1:12 PM
== END | disposition home or self-care (01) ==
LOC: C.PET 09:34
PROVIDERS: ATTEND Physician Assistant
DX: R91.1 Solitary pulmonary nodule (principal); R91.8 Other nonspecific abnormal finding of lung field